=== PATIENT | male | born 1940 | race Caucasian/White ===

== ENCOUNTER 2017-06-11 11:06 | Emergency (ER) | payer MEDICARE, OTHER ==
[2017-06-11 11:49] VITALS: BP 85/32
--- NOTE | 2017-06-11 11:57 | EDM.PDOC ---
ED HPI GENERAL MEDICAL PROBLEM - General Chief Complaint: Abdominal Pain Stated Complaint: ABDOMINAL PAIN Time Seen by Provider: 06/11/17 11:50 Source of Information: Reports: Patient, RN History Limitations: Reports: No Limitations - History of Present Illness INITIAL COMMENTS - FREE TEXT/NARRATIVE: 76 yr male presents with abdominal pain/ LLQ and states no BM for 3 days. States hx of hernia too. States hx of emphysema and takes neb and inhalers. 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: Other (see below) Left Abdomen Pain Score (Numeric/FACES): 8 - Related Data Allergies Allergy/AdvReac Type Severity Reaction Status Date / Time No Known Allergies Allergy Verified 06/01/16 17:56 Home Meds: Home Meds Albuterol/Ipratropium [DuoNeb 3.0-0.5 MG/3 ML] 3 ml .XX Q4H PRN 06/01/16 [ History] Desvenlafaxine [Pristiq] 50 mg PO BID 06/01/16 [History] Fluticasone/Salmeterol [Advair Diskus 500-50] 1 puff INH BID 06/01/16 [History] Levothyroxine Sodium [Synthroid] 150 mcg PO DAILY 06/01/16 [History] Lisinopril 10 mg PO DAILY 06/01/16 [History] Simvastatin [Zocor] 20 mg PO BEDTIME 06/01/16 [History] Tamsulosin HCl [Flomax] 0.4 mg PO DAILY 06/01/16 [History] Tiotropium [Spiriva] 1 puff INH DAILY 06/01/16 [History] Polyethylene Glycol 3350 [MiraLAX] 17 gm PO DAILY #30 packet 06/11/17 [Rx] Past Medical History HEENT History: Reports: Impaired Vision Cardiovascular History: Reports: High Cholesterol, Hypertension Respiratory History: Reports: COPD Psychiatric History: Reports: Depression Endocrine/Metabolic History: Reports: Hypothyroidism - Infectious Disease History Infectious Disease History: Reports: MRSA - Past Surgical History HEENT Surgical History: Reports: None Cardiovascular Surgical History: Reports: None Respiratory Surgical History: Reports: None Social & Family History - Tobacco Use Smoking Status *Q: Current Every Day Smoker Years of Tobacco use: 55 Packs/Tins Daily: 1 Used Tobacco, but Quit: No Second Hand Smoke Exposure: No - Caffeine Use Caffeine Use: Reports: Coffee - Alcohol Use Days Per Week of Alcohol Use: 7 Number of Drinks Per Day: 5 Total Drinks Per Week: 35 - Recreational Drug Use Recreational Drug Use: No ED ROS GENERAL - Review of Systems Review Of Systems: See Below Constitutional: Reports: No Symptoms HEENT: Reports: No Symptoms Cardiovascular: Reports: No Symptoms GI/Abdominal: Reports: Abdominal Pain, Constipation. Denies: Diarrhea Musculoskeletal: Reports: No Symptoms Skin: Reports: No Symptoms Neurological: Reports: No Symptoms Psychiatric: Reports: No Symptoms ED EXAM, GI/ABD - Physical Exam Exam: See Below Exam Limited By: No Limitations General Appearance: Alert, No Apparent Distress Ears: Hearing Grossly Normal Nose: Normal Inspection Throat/Mouth: Normal Voice, No Airway Compromise Head: Atraumatic, Normocephalic Neck: Normal Inspection, Supple, Non-Tender Respiratory/Chest: No Respiratory Distress, Decreased Breath Sounds, Wheezing Cardiovascular: Regular Rate, Rhythm, No Edema GI/Abdominal Exam: Normal Bowel Sounds, Soft, No Distention, Tender. No: Guarding, Rigid Extremities: Normal Range of Motion, Non-Tender Neurological: Alert, Oriented, Normal Cognition Psychiatric: Normal Affect, Normal Mood Skin Exam: Warm, Dry, Normal Color Lymphatic: No Adenopathy Course - Vital Signs Last Recorded V/S: Last Vital Signs Temp 97.8 F 06/11/17 11:47 Pulse 58 L 06/11/17 11:47 Resp 18 06/11/17 11:47 BP 85/32 L 06/11/17 11:47 Pulse Ox 88 L 06/11/17 11:47 - Orders/Labs/Meds Labs: Laboratory Tests 06/11/17 06/11/17 Range/Units 12:14 12:14 WBC 7.8 (4.0-11.0) K/uL RBC 4.84 (4.50-6.50) M/uL Hgb 15.6 (13.0-18.0) g/dL Hct 46.5 (40.0-54.0) % MCV 96 (76-96) fL MCH 32.2 H (27.0-32.0) pg MCHC 33.5 (31.0-35.0) g/dL RDW 13.8 (11.0-16.0) % Plt Count 156 D (150-400) K/uL MPV 10.5 H (6.0-10.0) fL Neut % (Auto) 74.5 H (45.0-70.0) % Lymph % (Auto) 13.1 L (20.0-40.0) % [place] % (Auto) 8.7 (3.0-10.0) % Eos % (Auto) 3.3 (1.0-5.0) % Baso % (Auto) 0.4 (0.0-0.5) % Neut # (Auto) 5.82 (2.00-7.50) K/uL Lymph # (Auto) 1.02 L (1.50-4.00) K/uL [place] # (Auto) 0.68 (0.20-0.80) K/uL Eos # (Auto) 0.26 (0.04-0.40) K/uL Baso # (Auto) 0.03 (0.02-0.10) K/uL Sodium 140 (136-145) mmol/L Potassium 5.4 H (3.5-5.1) mmol/L Chloride 104 (98-107) mmol/L Carbon Dioxide 31.0 (21.0-32.0) mmol/L Anion Gap 10.4 (5.0-15.0) mmol/L BUN 18 D (8-26) mg/dL Creatinine 1.09 (0.70-1.30) mg/dL Est Cr Clr Drug Dosing TNP Estimated GFR (MDRD) > 60 (>60) MLS/MIN BUN/Creatinine Ratio 16.5 (6-25) Glucose 98 (74-100) mg/dL Calcium 9.3 (8.5-10.1) mg/dL Total Bilirubin 0.5 (0.0-1.0) mg/dL AST 13 L (15-37) U/L ALT 17 (12-78) U/L Alkaline Phosphatase 83 (46-116) U/L Total Protein 7.3 (6.4-8.2) g/dL Albumin 3.9 (3.4-5.0) g/dL Globulin 3.4 (2.2-4.2) g/dL Albumin/Globulin Ratio 1.1 (0.8-2.0) Meds: Medications Discontinued Medications Generic Name Dose Route Start Last Admin Trade Name Yahaira PRN Reason Stop Dose Admin Sodium Biphosphate/Sodium Phosphate 133 ml 06/11/17 13:31 Fleet Enema RECTAL 06/11/17 13:32 ONETIME ONE - Re-Assessments/Exams Free Text/Narrative Re-Assessment/Exam: 06/11/17 18:41 LE Reviewed lab results and X-ray results w pt. Large amount of feces to rectum. Will give enema to assist with constipation. Pt states no one at home to help him with an enema. Will start Rx for Miralax daily until normal soft regular BM daily. Pt had large results of BM after tap water enema and stated relief of abdomen pain. Discharge to home with daily Miralax. Departure - Departure Time of Disposition: 14:00 Disposition: Home, Self-Care 01 Condition: Good Clinical Impression: Abdominal pain, Constipation - Discharge Information Prescriptions: Polyethylene Glycol 3350 [MiraLAX] 17 gm PO DAILY #30 packet Referrals: PCP,None [Primary Care Provider] - Forms: ED Department Discharge, ED Return to Work/School Form
[2017-06-11] MEDS ORDERED: Sodium Phosphate,Monobasic/Sodium Phosphate,Dibasic Enema 133 ML Bottle RECTAL ONE (13:31)
--- NOTE | 2017-06-11 18:23 | CR ---
DATE OF SERVICE: 06/11/17 CLINICAL DATA: LLQ abd pain SUPINE AND UPRIGHT ABDOMEN: There is a large amount of stool noted within the descending and sigmoid colon and rectum. No definite evidence for obstruction or ileus. No free air. There is degenerative disc disease throughout the lumbar spine. [id number] [facility]
== END 2017-06-11 14:00 | disposition home or self-care (01) ==
LOC: LB.ED 11:06
DX: K59.00 Constipation, unspecified (principal); I10 Essential (primary) hypertension; E78.00 Pure hypercholesterolemia, unspecified; J44.9 Chronic obstructive pulmonary disease, unspecified; E03.9 Hypothyroidism, unspecified; F17.210 Nicotine dependence, cigarettes, uncomplicated
CPT/HCPCS: 36415; 74019; 80053; 85025; 99283; 99284; A0425; A0429; A9270

== ENCOUNTER 2017-06-21 09:56 | Inpatient (IN) | payer MEDICARE, OTHER ==
[2017-06-21] MEDS ORDERED: Sodium Chloride 0.9% 10 ML Syringe FLUSH PRN (10:42)
[2017-06-21] MEDS ORDERED: methylPREDNISolone Sodium Succinate 125 MG/2 ML SDV IV ONE (11:27)
--- NOTE | 2017-06-21 11:33 | EDM.PDOC ---
ED HPI GENERAL MEDICAL PROBLEM - General Chief Complaint: Respiratory Problem Stated Complaint: SOB Time Seen by Provider: 06/21/17 10:00 Source of Information: Reports: Patient History Limitations: Reports: No Limitations - History of Present Illness INITIAL COMMENTS - FREE TEXT/NARRATIVE: This is a 76yo M here for chest congestion and shortness of breath. Patient denies any fever or chills. He has some difficulty with breathing. No other concerns or issues. Patient states he has some lightheadedness recently. Onset: Gradual Duration: Week(s):, Getting Worse Location: Reports: Chest Severity: Moderate Improves with: Reports: None Worsens with: Reports: Movement Associated Symptoms: Reports: Shortness of Breath - Related Data Allergies Allergy/AdvReac Type Severity Reaction Status Date / Time No Known Allergies Allergy Verified 06/21/17 10:44 Home Meds: Home Meds Albuterol/Ipratropium [DuoNeb 3.0-0.5 MG/3 ML] 3 ml INH Q4H PRN 06/01/16 [ History] Desvenlafaxine [Pristiq] 100 mg PO QPM 06/01/16 [History] Levothyroxine Sodium [Synthroid] 150 mcg PO ACBREAKFAST 06/01/16 [History] Simvastatin [Zocor] 20 mg PO BEDTIME 06/01/16 [History] Tamsulosin HCl [Flomax] 0.4 mg PO QPM 06/01/16 [History] Albuterol [Proventil Neb Soln] 1 ampule INH Q4H PRN 06/21/17 [History] Aspirin [Halfprin] 81 mg PO DAILY 06/21/17 [History] Gabapentin [Neurontin] 100 mg PO TID 06/21/17 [History] buPROPion [Wellbutrin SR] 100 mg PO BID 06/21/17 [History] Past Medical History HEENT History: Reports: Impaired Vision Cardiovascular History: Reports: High Cholesterol, Hypertension Respiratory History: Reports: COPD Genitourinary History: Reports: BPH Psychiatric History: Reports: Anxiety, Depression Endocrine/Metabolic History: Reports: Hypothyroidism - Infectious Disease History Infectious Disease History: Reports: Chicken Pox - Past Surgical History HEENT Surgical History: Reports: None Cardiovascular Surgical History: Reports: None Respiratory Surgical History: Reports: None GI Surgical History: Reports: Appendectomy, Hernia, Abdominal Male Surgical History: Reports: None Social & Family History - Tobacco Use Smoking Status *Q: Current Every Day Smoker Years of Tobacco use: 55 Packs/Tins Daily: 1 Used Tobacco, but Quit: No Second Hand Smoke Exposure: No - Caffeine Use Caffeine Use: Reports: Coffee - Alcohol Use Days Per Week of Alcohol Use: 7 Number of Drinks Per Day: 5 Total Drinks Per Week: 35 - Recreational Drug Use Recreational Drug Use: No ED ROS GENERAL - Review of Systems Review Of Systems: ROS reveals no pertinent complaints other than HPI. ED EXAM, GENERAL - Physical Exam Exam: See Below Exam Limited By: No Limitations Eye Exam: Bilateral Eye: EOMI, PERRL Ears: Normal External Exam Nose: Normal Inspection Throat/Mouth: Normal Inspection Head: Atraumatic, Normocephalic Neck: Normal Inspection Respiratory/Chest: Rhonchi, Wheezing Cardiovascular: Normal Peripheral Pulses Peripheral Pulses: 2+: Dorsalis Pedis (L), Dorsalis Pedis (R) GI/Abdominal: Normal Bowel Sounds Back Exam: Normal Inspection Extremities: Normal Inspection Neurological: Alert, Oriented, CN II-XII Intact Course - Vital Signs Last Recorded V/S: Last Vital Signs Temp 37.0 C 06/21/17 11:15 Pulse 72 06/21/17 16:00 Resp 18 06/21/17 16:00 BP 130/83 06/21/17 16:00 Pulse Ox 96 06/21/17 16:00 - Orders/Labs/Meds Orders: Medication Orders Albuterol (Proventil Neb Soln) 2.5 mg INH Q4H PRN PRN Reason: Shortness of Breath Albuterol/Ipratropium (Duoneb 3.0-0.5 Mg/3 Ml) 3 ml INH Q4H [facility] Last Admin: 06/21/17 16:12 Dose: Albuterol/Ipratropium (Duoneb 3.0-0.5 Mg/3 Ml) 3 ml NEB Q2H PRN PRN Reason: Shortness of Breath Aspirin (Halfprin) 81 mg PO DAILY [facility] Desvenlafaxine Succinate (Pristiq) 100 mg PO QPM [facility] Gabapentin (Neurontin) 200 mg PO TID [facility] Last Admin: 06/21/17 16:45 Dose: Azithromycin 500 mg/ Sodium (Chloride) 100 mls @ 100 mls/hr IV Q24H [facility] Stop: 06/24/17 11:31 Last Admin: 06/21/17 12:25 Dose: 100 mls/hr Ceftriaxone Sodium 1 gm/ (Sodium Chloride) 50 mls @ 200 mls/hr IV Q24H [place] Stop: 06/28/17 11:31 Last Admin: 06/21/17 12:08 Dose: 200 mls/hr Levothyroxine Sodium (Levothyroxine) 150 mcg PO ACBREAKFAST [place] Methylprednisolone Sodium Succinate (Solu-Medrol) 40 mg IV Q6H [place] Non-Formulary Medication (Bupropion [Wellbutrin Sr]) 100 mg PO BID [place] Simvastatin (Zocor) 20 mg PO BEDTIME [place] Sodium Chloride (Saline Flush) 10 ml FLUSH ASDIRECTED PRN PRN Reason: Keep Vein Open Tamsulosin HCl (Flomax) 0.4 mg PO QPM [place] Meds: Medications Generic Name Dose Route Start Last Admin Trade Name Freq PRN Reason Stop Dose Admin Albuterol 2.5 mg 06/21/17 13:13 Proventil Neb Soln INH Q4H PRN Shortness of Breath Albuterol/Ipratropium 3 ml 06/21/17 13:15 06/21/17 16:12 Duoneb 3.0-0.5 Mg/3 Ml INH Not Given Q4H [place] Albuterol/Ipratropium 3 ml 06/21/17 17:00 Duoneb 3.0-0.5 Mg/3 Ml NEB Q2H PRN Shortness of Breath Aspirin 81 mg 06/22/17 08:00 Halfprin PO DAILY [place] Desvenlafaxine Succinate 100 mg 06/21/17 20:00 Pristiq PO QPM [facility] Gabapentin 200 mg 06/21/17 14:00 06/21/17 16:45 Neurontin PO Not Given TID [place] Azithromycin 500 mg/ Sodium 100 mls @ 100 mls/hr 06/21/17 11:30 06/21/17 12: 25 Chloride IV 06/24/17 11:31 100 mls/hr Q24H [place] Administration Ceftriaxone Sodium 1 gm/ 50 mls @ 200 mls/hr 06/21/17 11:30 06/21/17 12:08 Sodium Chloride IV 06/28/17 11:31 200 mls/hr Q24H [place] Administration Levothyroxine Sodium 150 mcg 02/09/18 07:00 Levothyroxine PO ACBREAKFAST [facility] Methylprednisolone Sodium Succinate 40 mg 06/22/17 11:30 Solu-Medrol IV Q6H [place] Non-Formulary Medication 100 mg 06/21/17 20:00 Bupropion [Wellbutrin Sr] PO BID [place] Simvastatin 20 mg 06/21/17 20:00 Zocor PO BEDTIME [place] Sodium Chloride 10 ml 06/21/17 10:42 Saline Flush FLUSH ASDIRECTED PRN Keep Vein Open Tamsulosin HCl 0.4 mg 06/21/17 20:00 Flomax PO QPM [place] Discontinued Medications Generic Name Dose Route Start Last Admin Trade Name Freq PRN Reason Stop Dose Admin Albuterol/Ipratropium 3 ml 06/21/17 12:00 06/21/17 16:55 Duoneb 3.0-0.5 Mg/3 Ml NEB Not Given QID [place] Methylprednisolone Sodium Succinate 125 mg 06/21/17 11:27 06/21/17 11:47 Solu-Medrol IV 06/21/17 11:28 125 mg ONETIME ONE Administration Methylprednisolone Sodium Succinate Confirm 06/21/17 11:49 06/21/17 12:12 Solu-Medrol Administered 06/21/17 11:50 Not Given Dose 125 mg .ROUTE .STK-MED ONE Departure - Departure Time of Disposition: 11:00 Disposition: Admitted As Inpatient 68 Clinical Impression: COPD exacerbation - Discharge Information - Problem List & Annotations (1) COPD exacerbation SNOMED Code(s): 549814760 Code(s): J44.1 - CHRONIC OBSTRUCTIVE PULMONARY DISEASE W (ACUTE) EXACERBATION Status: Acute Priority: High Current Visit: Yes - Problem List Review Problem List Initiated/Reviewed/Updated: Yes - Assessment/Plan Plan: Patient oxygen saturation have dropped into the 80's. He has shortness of breath that does resolve with rest and increased oxygen via non-rebreather. Patient admitted for Solumedrol, and nebulizer management. Patient will be signed out for tomorrow and the weekend.
[2017-06-21] MEDS ORDERED: methylPREDNISolone Sodium Succinate 125 MG/2 ML SDV ONE (11:49)
[2017-06-21] MEDS: cefTRIAXone 1 GM in Sodium Chloride 0.9% 50 ML IV SCH (12:08)
[2017-06-21] MEDS: Albuterol/Ipratropium 3.0-0.5 MG/3 ML Neb Soln NEB SCH ×2 (12:48→16:55)
[2017-06-21] MEDS: Albuterol/Ipratropium 3.0-0.5 MG/3 ML Neb Soln INH SCH ×3 (16:12→21:11)
[2017-06-21] MEDS: Gabapentin 100 MG Cap PO SCH ×2 (16:45→19:42)
[2017-06-21] MEDS ORDERED: Albuterol/Ipratropium 3.0-0.5 MG/3 ML Neb Soln NEB PRN (17:00)
[2017-06-21] MEDS ORDERED: Fluticasone Propionate Nasal Spray 16 GM Bottle ONE (17:56)
[2017-06-21] MEDS: Fluticasone Propionate Nasal Spray 16 GM Bottle NASBOTH SCH (18:01)
[2017-06-21] MEDS: Non-Formulary Medication 1 Each (Bupropion [Wellbutrin Sr] 100 MG) PO SCH (19:42)
[2017-06-21] MEDS: Desvenlafaxine 50 MG Tab.ER PO SCH (19:42)
[2017-06-21] MEDS: Tamsulosin 0.4 MG Cap.ER PO SCH (19:43)
[2017-06-21] MEDS: Simvastatin 20 MG Tab PO SCH (19:43)
[2017-06-21] MEDS ORDERED: buPROPion 150 MG Tab.SR PO SCH (20:00)
[2017-06-22] MEDS: Albuterol/Ipratropium 3.0-0.5 MG/3 ML Neb Soln INH SCH ×8 (01:27→22:09)
[2017-06-22] MEDS ORDERED: Albuterol/Ipratropium 3.0-0.5 MG/3 ML Neb Soln ONE (02:47)
[2017-06-22] MEDS: Levothyroxine 150 MCG Tab PO SCH (06:47)
[2017-06-22] MEDS: Albuterol 0.083% 2.5 MG/3 ML Neb Soln INH PRN (06:47)
[2017-06-22] MEDS: Non-Formulary Medication 1 Each (Bupropion [Wellbutrin Sr] 100 MG) PO SCH ×2 (08:00→19:16)
[2017-06-22] MEDS: Fluticasone Propionate Nasal Spray 16 GM Bottle NASBOTH SCH (08:00)
[2017-06-22] MEDS: Aspirin 81 MG Tab.EC PO SCH (08:01)
[2017-06-22] MEDS: Gabapentin 100 MG Cap PO SCH ×3 (08:01→19:15)
--- NOTE | 2017-06-22 09:30 | CR ---
DATE OF SERVICE: 06/21/17 CLINICAL DATA: COPD exacerbation AP PORTABLE CHEST: Comparison is made to a prior exam dated 09/25/16. Multiple views were obtained. The right costophrenic angle is cut off on all of them. The heart size is normal. The pulmonary vasculature appears prominent. The lungs are mildly hyperexpanded. There is mild increased density in the left lung base adjacent to the left hemidiaphragm suggesting subsegmental atelectasis or infiltrate. Pneumonia should be considered. No other significant findings. No pneumothorax. No pleural effusions. [id number] MTDD
[2017-06-22] MEDS: methylPREDNISolone Sodium Succinate 40 MG/1 ML SDV IV SCH ×3 (10:26→17:14)
[2017-06-22] MEDS: Azithromycin 500 MG in Sodium Chloride 0.9% 250 ML IV SCH (10:26)
[2017-06-22] MEDS: cefTRIAXone 1 GM in Sodium Chloride 0.9% 50 ML IV SCH (11:50)
[2017-06-22] MEDS: Tamsulosin 0.4 MG Cap.ER PO SCH (19:16)
[2017-06-22] MEDS: Desvenlafaxine 50 MG Tab.ER PO SCH (19:16)
[2017-06-22] MEDS: Simvastatin 20 MG Tab PO SCH (19:16)
--- NOTE | 2017-06-22 21:09 | PN ---
DATE OF VISIT: 06/22/2017 HISTORY OF PRESENT ILLNESS: This is a 76-year-old male who is an inpatient with an exacerbation of COPD. He has been here for one day, and it was reported to me that he has been responding well since he was admitted. He is on IV antibiotics and IV Solu -Medrol. The patient is on oxygen as well. When entering the room today, he is sitting up in bed reading. He states that he feels better. He is wondering when he can go home. He is not having any pain, and states that at rest, he has no problems with shortness of breath. PHYSICAL EXAMINATION: VITAL SIGNS: Reviewed. Blood pressure 100/60, O2 sats are at 92%. LUNGS: On exam reveals rhonchi and mild wheezes throughout the lung sanchez. CARDIAC: Heart sounds distinct without murmurs. SKIN: Warm and dry. TREATMENT PLAN: We will continue the patient on IV Solu-Medrol and his IV antibiotics. We will see how he improves over the course of the next day. If things continue to improve, we will try weaning him off the IV medications and switching to oral medications. Activity should be as tolerated with assistance. CRS/MODL /[id number] SABRINA
[2017-06-23] MEDS: methylPREDNISolone Sodium Succinate 40 MG/1 ML SDV IV SCH ×2 (00:45→08:51)
[2017-06-23] MEDS: Albuterol/Ipratropium 3.0-0.5 MG/3 ML Neb Soln INH SCH ×6 (01:35→21:35)
[2017-06-23] MEDS: Albuterol 0.083% 2.5 MG/3 ML Neb Soln INH PRN (02:15)
[2017-06-23] MEDS: Gabapentin 100 MG Cap PO SCH ×3 (08:41→19:37)
[2017-06-23] MEDS: Non-Formulary Medication 1 Each (Bupropion [Wellbutrin Sr] 100 MG) PO SCH ×2 (08:41→19:37)
[2017-06-23] MEDS: Levothyroxine 150 MCG Tab PO SCH (08:42)
[2017-06-23] MEDS: Fluticasone Propionate Nasal Spray 16 GM Bottle NASBOTH SCH (08:43)
[2017-06-23] MEDS: Aspirin 81 MG Tab.EC PO SCH (08:51)
[2017-06-23] MEDS: Azithromycin 500 MG in Sodium Chloride 0.9% 250 ML IV SCH (09:51)
[2017-06-23] MEDS: cefTRIAXone 1 GM in Sodium Chloride 0.9% 50 ML IV SCH (11:28)
--- NOTE | 2017-06-23 11:46 | PN ---
DATE OF VISIT: 06/23/2017 This is a 76-year-old male admitted a couple of days ago for COPD. The patient has been on Solu-Medrol 40 mg IV q.6 hours. He takes DuoNeb treatments q.i.d. He is on both Zithromax and Rocephin IV. The patient feels that his condition has improved some, but he has not improved much since yesterday. He states he felt much better after he was in the emergency room with the treatment they gave him there. He does not seem like he is continuing to improve. He is not having any problems with shortness of breath, and the patient was able to dress himself this morning and as well as putting his own socks on, which he has not been able to do recently. He is concerned about possibly getting constipated. He is not having any abdominal pain, but he has not had a bowel movement in a couple of days. Intake has been good. He is on low-flow oxygen. Vital signs have been good as well per nursing staff report. OBJECTIVE: GENERAL APPEARANCE: The patient is awake and alert. No obvious distress. LUNGS: Reveals ongoing rhonchi and wheezes scattered throughout the lung sanchez. Deep breathing does induce a coarse cough. CARDIAC: Heart sounds distinct without murmurs. ABDOMEN: Soft, nontender. Bowel sounds are present, but hypoactive. SKIN: Warm and dry. TREATMENT PLAN: We will increase the patient's Solu-Medrol to 60 mg q.i.d. for one day and see if this makes a difference. I will put him on a laxative as well per protocol. I advised the patient to move around the room with nursing assistance as tolerated and we will see how the patient is doing tomorrow. CRS/MODL /[id number] SABRINA
[2017-06-23] MEDS: methylPREDNISolone Sodium Succinate 125 MG/2 ML SDV IVPUSH SCH ×2 (15:40→20:15)
[2017-06-23] MEDS ORDERED: Docusate Sodium 100 MG Cap PO PRN (17:56)
[2017-06-23] MEDS: Tamsulosin 0.4 MG Cap.ER PO SCH (19:37)
[2017-06-23] MEDS: Simvastatin 20 MG Tab PO SCH (19:37)
[2017-06-23] MEDS: Desvenlafaxine 50 MG Tab.ER PO SCH (19:37)
[2017-06-24] MEDS: Albuterol/Ipratropium 3.0-0.5 MG/3 ML Neb Soln INH SCH ×3 (05:13→09:29)
[2017-06-24] MEDS: methylPREDNISolone Sodium Succinate 125 MG/2 ML SDV IVPUSH SCH ×2 (05:13→09:28)
[2017-06-24] MEDS: Gabapentin 100 MG Cap PO SCH (07:57)
[2017-06-24] MEDS: Levothyroxine 150 MCG Tab PO SCH (07:58)
[2017-06-24] MEDS: Aspirin 81 MG Tab.EC PO SCH (08:00)
[2017-06-24] MEDS: Fluticasone Propionate Nasal Spray 16 GM Bottle NASBOTH SCH (08:00)
[2017-06-24] MEDS: Non-Formulary Medication 1 Each (Bupropion [Wellbutrin Sr] 100 MG) PO SCH (08:06)
[2017-06-24] MEDS: Azithromycin 500 MG in Sodium Chloride 0.9% 250 ML IV SCH (09:29)
[2017-06-24] MEDS: cefTRIAXone 1 GM in Sodium Chloride 0.9% 50 ML IV SCH (11:09)
[2017-06-24 13:51] VITALS: BP 132/81
--- NOTE | 2017-06-25 03:27 | DISCH ---
HISTORY OF PRESENT ILLNESS: This 76-year-old male is here for COPD. The patient has been on IV antibiotics. He has been on nebulizers using a DuoNeb q.i.d., and he has been getting Solu-Medrol. We did increase his Solu-Medrol from 40 mg q.i.d. to 60 mg q.i.d. yesterday. The patient states he feels like he is improving. He was able to go to the bathroom with oxygen without any loss of O2 saturation. I had nurses walk him 200 feet today without oxygen and his sats dropped to 85%. He did not feel short of breath and as soon as he sat down and put the O2 on, it came back up to 98%. The patient has been eating well and states that he feels pretty good today. OBJECTIVE: GENERAL APPEARANCE: The patient is awake and alert. He is resting comfortably in bed, reading a book. VITAL SIGNS: Reviewed. Blood pressure 132/81, he is afebrile. Pulse is 73. LUNGS: On physical exam, lungs today reveal mild wheezes throughout. I do not hear any rales or rhonchi today. Deep breathing does not cause coughing or shortness of breath. CARDIAC: Heart sounds distinct. SKIN: Warm and dry. ASSESSMENT AND PLAN: I feel the patient can be discharged. I will put him on Spiriva which he can take once a day. He tells me he has been on this before. I will put him on an oral prednisone taper, and I will also start him on Augmentin for one week. The patient is to go home, use oxygen as needed, and get plenty of rest. I do want the patient to follow up with his primary care provider or someone in the clinic sometime later on this coming week. JG/MODL /[id number]
== END 2017-06-24 14:20 | disposition home or self-care (01) | DRG 192 ==
LOC: LB.ED 09:56 → LB.MS 10:40
PROVIDERS: ADMIT Family Medicine; ATTEND Family Medicine
DX: J44.1 Chronic obstructive pulmonary disease with (acute) exacerbation (principal); I10 Essential (primary) hypertension; F17.210 Nicotine dependence, cigarettes, uncomplicated; E03.9 Hypothyroidism, unspecified; R06.02 Shortness of breath; F32.9 Major depressive disorder, single episode, unspecified; F41.9 Anxiety disorder, unspecified; N40.0 Benign prostatic hyperplasia without lower urinary tract symptoms; E78.00 Pure hypercholesterolemia, unspecified; H54.7 Unspecified visual loss; Z79.82 Long term (current) use of aspirin
CPT/HCPCS: 36415; 71045; 80048; 80053; 82803; 85025; 99285-25; A0425; A0429; A9270-GY; J0456; J0696; J2920; J2930; J7030; J7050; J7620

== ENCOUNTER 2017-07-14 11:30 | Emergency (ER) | payer MEDICARE, OTHER ==
[2017-07-14 11:58] VITALS: BP 165/93
[2017-07-14] MEDS ORDERED: Budesonide 0.5 MG/2 ML Neb Susp NEB ONE (11:58)
[2017-07-14] MEDS ORDERED: methylPREDNISolone Sodium Succinate 125 MG/2 ML SDV IVPUSH ONE (11:59)
[2017-07-14] MEDS: Albuterol/Ipratropium 3.0-0.5 MG/3 ML Neb Soln NEB STA ×2 (12:00→13:01)
[2017-07-14] MEDS ORDERED: methylPREDNISolone Sodium Succinate 125 MG/2 ML SDV ONE (12:25)
[2017-07-14] MEDS ORDERED: Albuterol/Ipratropium 3.0-0.5 MG/3 ML Neb Soln ONE ×2 (13:05→14:50)
[2017-07-14] MEDS ORDERED: predniSONE 10 MG Tab ONE (15:00)
--- NOTE | 2017-07-14 20:55 | ER ---
HISTORY OF PRESENT ILLNESS: A 76-year-old male here with complaints of a flare up of his COPD. The patient has had problems for the last 2 or 3 days. He was in the hospital a couple weeks ago. He was sent home with medications and included a prednisone taper. He tells me that when he was on this medicine he did pretty good. Within 2 days of going off it, he started having symptoms again. 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 He states that he was not able to get in and get them. He also did not follow up with his primary care provider as previously directed. The patient tells me that it is very hard to breathe. He has been taking albuterol neb treatments frequently the last 2 days, but they do not seem to help very much. OBJECTIVE: GENERAL APPEARANCE: The patient is awake and alert. He has audible wheezing, mild shortness of breath. VITAL SIGNS: Reviewed. Blood pressure 165/93, O2 sats started out 85%, pulse is 102. He is afebrile. He was given 2 L of O2 and his sats climbed into the mid 90s. LUNG: He has significant wheezing, inspiratory and expiratory with significantly reduced air exchange throughout the lung sanchez. SKIN: Warm and dry. HEENT: Oral mucous membranes moist. Tonsils not enlarged or injected. Pharynx not inflamed. ABDOMEN: Soft and nontender. Bowel sounds are present. Initial treatment DuoNeb was given, followed by a Pulmicort. Nebulizer treatment followed by a second DuoNeb treatment. An IV was started. Solu-Medrol 125 mg was given IV. The patient responded significantly well to this and states he feels much better. Labs today, CBC is unremarkable. D-dimer is at 453, just slightly elevated. BNP is normal. Lactic acid is elevated at 2.91. Comprehensive metabolic panel was unremarkable. DIAGNOSIS: Chronic obstructive pulmonary disease. TREATMENT PLAN: The patient wants to go home. He agrees to take whatever medications I would give him and he agrees to follow up with Dr. Starks early next week in the clinic. Since the patient has responded this well. I feel this is reasonable. He is to continue on DuoNeb treatments per nebulizer every 6 hours, and we will get put him on p.o. prednisone 30 mg b.i.d. for 2 days, followed by 20 mg b.i.d. for 5 days. The patient is to definitely follow up next week in the clinic as soon as he can with Dr. Starks. JG/MODL /[id number]
--- NOTE | 2017-07-15 12:22 | CR ---
DATE OF SERVICE: 07/14/17 CLINICAL DATA: SOB - COPD. AP CHEST: Comparison is made to a prior exam dated 07/01/2017. The heart size is normal. The lungs are mildly hyperexpanded. There are mild interstitial changes throughout both lungs. There is a persistent subtle density in the left lung base, adjacent to the left hemidiaphragm, which may be focal infiltrate or atelectasis. The exam is otherwise unchanged from the prior. [id number] [facility]
== END 2017-07-14 15:10 | disposition home or self-care (01) ==
LOC: LB.ED 11:52
DX: J44.9 Chronic obstructive pulmonary disease, unspecified (principal)
CPT/HCPCS: 36415; 71045; 80053; 83605; 83880; 85025; 85379; 96374; 99285; A9270; J2930; J7620; J7626

== ENCOUNTER 2017-10-03 09:55 | Emergency (ER) | payer MEDICARE, OTHER ==
[2017-10-03] MEDS: Albuterol/Ipratropium 3.0-0.5 MG/3 ML Neb Soln NEB ONE (10:15)
[2017-10-03] MEDS: methylPREDNISolone Sodium Succinate 125 MG/2 ML SDV IVPUSH ONE (10:19)
[2017-10-03] MEDS: Budesonide 0.5 MG/2 ML Neb Susp NEB ONE (10:27)
[2017-10-03 10:44] VITALS: BP 125/83
[2017-10-03] MEDS: Budesonide 0.5 MG/2 ML Neb Susp ONE (10:45)
[2017-10-03] MEDS: methylPREDNISolone Sodium Succinate 125 MG/2 ML SDV ONE (10:45)
--- NOTE | 2017-10-03 17:11 | CR ---
DATE OF SERVICE: 10/03/17 CLINICAL DATA: SOB. AP PORTABLE CHEST: Comparison is made to a prior exam dated 07/14/17. The heart size is normal. Pulmonary vasculature does appear to be mildly prominent suggesting the possibility of mild pulmonary venous congestion or fluid overload. There is a persistent rounded density in the left lung base adjacent to the left hemidiaphragm. This may be focal eventration of the left hemidiaphragm. I cannot exclude a mass. Mild interstitial changes in both lower lungs. The lungs are otherwise clear. There is slight blunting of both costophrenic angles suggesting small bilateral pleural effusions or pleural scar. [id number] MTDD
--- NOTE | 2017-10-03 19:07 | ER ---
DATE OF SERVICE: 10/03/2017 HISTORY OF PRESENT ILLNESS: This 76-year-old male here with complaints of shortness of breath, and wheezing that he has been fighting for the last few days, but it seemed like it got worse today. The patient has history of COPD and has had multiple flare- ups. He has been seen here in our facility about once a month since May. The patient does take DuoNeb at home. He takes these neb treatments 4 times a day, and he states that sometimes it seems like it works quite well, other times not so much. The patient denies any obvious fever or recent illness. OBJECTIVE: GENERAL APPEARANCE: The patient is awake and alert. He has mild respiratory distress and has audible wheezes. VITAL SIGNS: Reviewed. O2 saturations initially were at 80% when he arrived. Respirations 24, blood pressure 137/83. He is afebrile. Pulse is 65. O2 was put on the patient at 2 L, and his sats went right up to 97%. LUNG: Reveals significant wheezing throughout with minimal rales noted in both bases. CARDIAC : Heart sounds distinct. SKIN: Warm and dry. ORAL: Mucous membranes moist. INITIAL TREATMENT: DuoNeb was given to the patient followed by Pulmicort nebulizer treatment. The patient also was given Solu-Medrol 125 mg IV. LABORATORY AND IMAGING DATA: Includes a CBC and basic metabolic panel, they are unremarkable. His eosinophils are slightly elevated. Chest x-ray shows chronic COPD type changes. DIAGNOSIS: Chronic obstructive pulmonary disease exacerbation. ASSESSMENT: The patient feels much better after the initial treatments were done. He no longer has audible wheezes. I listened to his lungs again and he still has some end- expiratory wheezing, but much reduced from when he arrived. TREATMENT PLAN: The patient will be discharged home. I will put him on an oral prednisone taper over the next couple of weeks. The patient is to continue with his DuoNeb at home and use oxygen as needed. He does have an appointment coming up with Dr. Starks, his primary care provider in a week or so. This would be a good time for recheck. He is to come back to the ER of course sooner on a p.r.n. basis. CRS/MODL /[id number] MTDD
== END 2017-10-03 11:14 | disposition home or self-care (01) ==
LOC: LB.ED 09:55
DX: J44.1 Chronic obstructive pulmonary disease with (acute) exacerbation (principal)
CPT/HCPCS: 36415; 71045; 80048; 85025; 96374; 99284-25; J2930; J7620

== ENCOUNTER 2017-10-21 15:50 | Emergency (ER) | payer MEDICARE, OTHER ==
[2017-10-21 16:03] VITALS: BP 125/84
--- NOTE | 2017-10-21 17:03 | EDM.PDOC ---
ED HPI GENERAL MEDICAL PROBLEM - General Chief Complaint: General Stated Complaint: LEFT ANKLE swelling Time Seen by Provider: 10/21/17 16:00 Source of Information: Reports: Patient History Limitations: Reports: No Limitations - History of Present Illness INITIAL COMMENTS - FREE TEXT/NARRATIVE: According to patient he was sitting in the chair yesterday afternoon and he felt a pop in his left ankle and since then he has been having swelling around the left ankle. Today he has been having pain around the ankle and hurts to bear weight or walk. No other trauma or injury. Also he has noted some skin bruising around the ankle. No other complaints. Pt claims that he has been on prednisone for his emphysema for past 2 wks now. Onset Date: 10/20/17 Onset Time: 12:00 Location: Reports: Lower Extremity, Left Quality: Reports: Ache Severity: Mild Improves with: Reports: None Worsens with: Reports: None Associated Symptoms: Denies: Confusion, Chest Pain, Cough, Diaphoresis, Fever/ Chills, Headaches, Nausea/Vomiting, Rash, Seizure, Shortness of Breath, Syncope , Weakness left ankle Pain Score (Numeric/FACES): 7 - Related Data Allergies Allergy/AdvReac Type Severity Reaction Status Date / Time No Known Allergies Allergy Verified 10/03/17 10:31 Home Meds: Home Meds Albuterol/Ipratropium [DuoNeb 3.0-0.5 MG/3 ML] 3 ml INH Q4H PRN 06/01/16 [ History] Desvenlafaxine [Pristiq] 100 mg PO QPM 06/01/16 [History] Simvastatin [Zocor] 20 mg PO BEDTIME 06/01/16 [History] Tamsulosin HCl [Flomax] 0.4 mg PO QPM 06/01/16 [History] Aspirin [Halfprin] 81 mg PO DAILY 06/21/17 [History] buPROPion [Wellbutrin SR] 100 mg PO BID 06/21/17 [History] Levothyroxine 150 mcg PO ACBREAKFAST tablet 06/24/17 [Rx] Budesonide/Formoterol Fumarate [Symbicort 160-4.5 Mcg Inhaler] 2 puff IH BID [History] Past Medical History HEENT History: Reports: Impaired Vision Cardiovascular History: Reports: High Cholesterol, Hypertension Respiratory History: Reports: COPD Gastrointestinal History: Reports: None Genitourinary History: Reports: BPH Psychiatric History: Reports: Anxiety, Depression Endocrine/Metabolic History: Reports: Hypothyroidism - Infectious Disease History Infectious Disease History: Reports: Chicken Pox Other Infectious Disease History: Doesn't know - Past Surgical History HEENT Surgical History: Reports: None Cardiovascular Surgical History: Reports: None Respiratory Surgical History: Reports: None GI Surgical History: Reports: Appendectomy, Hernia, Abdominal Male Surgical History: Reports: None Social & Family History - Family History Family Medical History: Noncontributory - Caffeine Use Caffeine Use: Reports: Coffee ED ROS GENERAL - Review of Systems Review Of Systems: See Below Constitutional: Denies: Fever, Chills Respiratory: Reports: Shortness of Breath (severe COPD). Denies: Wheezing, Pleuritic Chest Pain, Cough, Sputum Cardiovascular: Denies: Chest Pain, Lightheadedness Endocrine: Denies: Fatigue GI/Abdominal: Denies: Abdominal Pain, Nausea, Vomiting : Denies: Dysuria, Flank Pain Musculoskeletal: Denies: Joint Pain, Joint Swelling Skin: Denies: Pruritis, Rash, Erythema ED EXAM, GENERAL - Physical Exam Exam: See Below Exam Limited By: No Limitations General Appearance: Alert, WD/WN, Mild Distress Eye Exam: Bilateral Eye: EOMI, PERRL Ears: Normal External Exam, Normal Canal, Hearing Grossly Normal, Normal TMs Ear Exam: Bilateral Ear: Auricle Normal, Canal Normal, TM normal Nose: Normal Inspection, Normal Mucosa, No Blood Throat/Mouth: Normal Inspection, Normal Lips, Normal Teeth, Normal Gums, Normal Oropharynx, Normal Voice, No Airway Compromise Head: Atraumatic, Normocephalic Neck: Normal Inspection, Supple, Non-Tender, Full Range of Motion Respiratory/Chest: No Respiratory Distress, Lungs Clear, Normal Breath Sounds, No Accessory Muscle Use, Chest Non-Tender Cardiovascular: Normal Peripheral Pulses, Regular Rate, Rhythm, No Edema, No Gallop, No JVD, No Murmur, No Rub Extremities: Other (Left lower extremity: there is swelling seen all around the left ankle also there is skin bruising over posterior aspect of the ankle. Pt has very limited dorsifelxion of the foot. Thereis partial defect and tender over the chilis tendon just proximal to calcaneus.) Course - Vital Signs Text/Narrative:: It does appear like patient has had partial rupture of Achilles tendon when he tried to get out of the chair yesterday. His ankle Xray appear normal other then soft tissue swelling. I have reassured patient. I am not sure if this is related to his use of oral prednisone I did applied a long leg splint. Advised non-weight bearing with crutches, but patient cannot use crutches due to proximal muscle weakness of his shoulder girdle. Advised to use walker for ambulation and minimal weight bearing. I have advised him to keep the leg elevated. Will try to contact [facility] in the morning and discuss patient and schedule appointment for further care.Pt might need MRI, but will wait until I contact Ortho clinic. Pt does understand and agree with the plan. Last Recorded V/S: Last Vital Signs Temp 97.2 F 10/21/17 15:51 Pulse 87 10/21/17 15:51 Resp 20 10/21/17 15:51 BP 125/84 10/21/17 15:51 Pulse Ox 96 10/21/17 15:51 - Orders/Labs/Meds Orders: Active Orders 24 hr Category Date Time Status Ankle 2V Lt [CR] Stat Exams 10/21/17 16:03 Taken Departure - Departure Time of Disposition: 17:30 Disposition: Home, Self-Care 01 Condition: Fair Clinical Impression: Achilles rupture, left - Discharge Information Instructions: Achilles Tendon Rupture Forms: ED Department Discharge Additional Instructions: Karla will call you tomorrow or Dr. Lima nurse will call you. If you need something or have any questions you can call [phone] (clinic). Do not put ice or heat on the injury. - Problem List & Annotations (1) Achilles rupture, left SNOMED Code(s): 34820679114841741 Code(s): S86.012A - STRAIN OF LEFT ACHILLES TENDON, INITIAL ENCOUNTER Status: Acute - Problem List Review Problem List Initiated/Reviewed/Updated: Yes - My Orders Last 24 Hours: My Active Orders 10/21/17 16:03 Ankle 2V Lt [CR] Stat - Assessment/Plan Last 24 Hours: My Active Orders 10/21/17 16:03 Ankle 2V Lt [CR] Stat Assessment:: Partial Achilles tendon rupture Plan: It does appear like patient has had partial rupture of Achilles tendon when he tried to get out of the chair yesterday. His ankle Xray appear normal other then soft tissue swelling. I have reassured patient. I am not sure if this is related to his use of oral prednisone I did applied a long leg splint. Advised non-weight bearing with crutches, but patient cannot use crutches due to proximal muscle weakness of his shoulder girdle. Advised to use walker for ambulation and minimal weight bearing. I have advised him to keep the leg elevated. Will try to contact [facility] in the morning and discuss patient and schedule appointment for further care.Pt might need MRI, but will wait until I contact Ortho clinic. Pt does understand and agree with the plan.
--- NOTE | 2017-10-22 07:34 | CR ---
DATE OF SERVICE: 10/21/17 CLINICAL DATA: pain and swelling LEFT ANKLE: No priors. There is soft tissue swelling over the medial and lateral malleoli. No acute fracture or dislocation. No lytic or blastic bone lesions. [id number] [facility]
== END 2017-10-21 17:00 | disposition home or self-care (01) ==
LOC: LB.ED 15:50
DX: S86.012A Strain of left Achilles tendon, initial encounter (principal); I10 Essential (primary) hypertension; E78.00 Pure hypercholesterolemia, unspecified; F32.9 Major depressive disorder, single episode, unspecified; E03.9 Hypothyroidism, unspecified; Z79.899 Other long term (current) drug therapy; X58.XXXA Exposure to other specified factors, initial encounter
CPT/HCPCS: 29505; 73600-LT; 99283

== ENCOUNTER 2019-06-30 08:56 | Observation (INO) | payer MEDICARE, MEDICAID ==
[2019-06-30] MEDS ORDERED: methylPREDNISolone Sodium Succinate 125 MG/2 ML SDV IVPUSH ONE (09:20)
[2019-06-30] MEDS ORDERED: Levofloxacin/Dextrose 5%-Water 500 MG in Premix Bag 1 BAG IV ONE (09:22)
[2019-06-30] MEDS ORDERED: methylPREDNISolone Sodium Succinate 125 MG/2 ML SDV ONE (09:50)
[2019-06-30] MEDS ORDERED: cefTRIAXone 1 GM Vial ONE (10:18)
[2019-06-30] MEDS: cefTRIAXone 1 GM in Sodium Chloride 0.9% 50 ML IV SCH (10:25)
[2019-06-30] MEDS: Albuterol/Ipratropium 3.0-0.5 MG/3 ML Neb Soln NEB PRN (10:32)
--- NOTE | 2019-06-30 10:35 | CR ---
DATE OF SERVICE: 06/30/2019 CLINICAL DATA: Shortness of breath AP and lateral chest: Comparison made to prior exam dated 02/22/2018. The heart size is normal. There is prominence of the proximal pulmonary arteries suggesting pulmonary hypertension. The lungs are hyperexpanded. 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 There are scattered reticular opacities throughout both lungs with fibrotic changes bilaterally. Mild progression from the prior study. No pneumothorax. No pleural effusions. MTDD
[2019-06-30] MEDS ORDERED: Albuterol/Ipratropium 3.0-0.5 MG/3 ML Neb Soln ONE (10:36)
[2019-06-30] MEDS ORDERED: Albuterol/Ipratropium 3.0-0.5 MG/3 ML Neb Soln INH PRN (11:34)
--- NOTE | 2019-06-30 12:57 | HP ---
REASON FOR EMERGENCY ROOM ADMISSION: Acute exacerbation of COPD. HISTORY: This 78-year-old man was brought in with increasing shortness of breath. He was brought in by ambulance and was known to have a history of severe COPD. Apparently, he has been experiencing increasing dyspnea throughout the day, particularly yesterday. It improved and when he went to bed, he felt fine. One nebulizer treatment at home seemed to help him a great deal. He went into bed and then was awakened in the middle of night with increasing shortness of breath. He finally reached a point where he called an ambulance to bring him into the emergency room. He denies any fever or myalgias. He has not had any GI symptoms. On arrival, he had some air hunger and appeared to be somewhat anxious. He denied any chest pain or urinary symptoms. He is on home O2 therapy as needed. He has 2 daughters, 1 of whom was lost on 01/22 in [facility] [place]. PAST MEDICAL HISTORY: 1. COPD, severe. 2. History of bilateral Achilles tendon rupture. 3. History of depression. 4. Hyperthyroidism. 5. History of vasovagal episode. MEDICATIONS: Reviewed. Please see EMR. They include the following; desvenlafaxine (Pristiq), Symbicort inhaler, levothyroxine, albuterol with ipratropium (DuoNeb p.r.n.), Flomax, and one baby aspirin per day. ALLERGIES: NONE TO MEDICATIONS. SOCIAL HISTORY: He does admit to smoking 3/4 of a pack of cigarettes per day. He is still actively smoking. He lives with his . REVIEW OF SYSTEMS: Pertinent positives and negatives as listed in the HPI. PHYSICAL EXAMINATION: GENERAL: He appears somewhat anxious and is using accessory muscles to certain extent. VITAL SIGNS: He is afebrile, heart rate is 95, blood pressure 117/70, respiratory rate is 22, O2 sats 99% on 2 L per nasal cannula. HEENT: Head is normocephalic. No conjunctivitis. Oropharynx is normal. No erythema or exudates are noted. NECK: Supple. There is some mild JVD noted. No adenopathy. CHEST: He has bilateral expiratory wheezes and rhonchi and somewhat decreased air exchange consistent with COPD. CARDIAC: Regular rate without murmur. ABDOMEN: Soft and nontender. No hepatosplenomegaly. He does have easily reducible bilateral inguinal hernias. EXTREMITIES: Normal pulses. No edema. Feet are pink and warm. No cyanosis is evident. SKIN: No rashes. NEUROLOGIC: He moves all 4 extremities equally well to command. LABORATORY DATA: His CBC is within normal limits. His CMP is also within normal limits. His electrolytes are normal. An influenza A and B nasal swab was negative. His chest x-ray shows bilateral fibrotic changes, but without any definite infiltrates or acute processes. IMPRESSION: Acute exacerbation of chronic obstructive pulmonary disease in an active smoker. PLAN: 1. He was given one dose of Solu-Medrol 125 mg IV (this has worked the best for him in the past). 2. We will continue him on steroids, and I will probably switch him over to an oral burst type therapy. 3. He was given 1 g of Rocephin IV and we will continue this. 4. DuoNeb therapy will be started on him. He will be given supplemental oxygen as needed. 5. The patient understands and agrees with this plan. All questions were answered. PRESTON
[2019-06-30] MEDS ORDERED: Acetaminophen 500 MG Tab ONE (13:24)
[2019-06-30] MEDS ORDERED: Acetaminophen 500 MG Tab PO PRN (13:49)
[2019-06-30] MEDS ORDERED: Tamsulosin 0.4 MG Cap.ER*PT OWN MED PO SCH (20:00)
[2019-06-30] MEDS ORDERED: Desvenlafaxine 50 MG Tab.ER PO SCH (20:00)
[2019-06-30] MEDS ORDERED: DESVENLAFAXINE 100 MG PO SCH ×2 (20:00)
[2019-06-30] MEDS ORDERED: Tamsulosin 0.4 MG Cap.ER PO SCH (20:00)
[2019-06-30] MEDS: Non-Formulary Medication 1 Each (Budesonide/Formoterol Fumarate [Symbicort 160-4.5 Mcg Inh IH SCH (20:22)
[2019-07-01] MEDS ORDERED: Albuterol 0.083% 2.5 MG/3 ML Neb Soln NEB STA (03:10)
[2019-07-01] MEDS ORDERED: methylPREDNISolone Sodium Succinate 125 MG/2 ML SDV ONE (03:14)
[2019-07-01] MEDS ORDERED: Levothyroxine 150 MCG Tab PO SCH (07:00)
[2019-07-01] MEDS ORDERED: LEVOTHYROXINE 150 MCG PO SCH (07:00)
[2019-07-01] MEDS ORDERED: Aspirin 81 MG Tab.EC PO SCH (08:00)
[2019-07-01] MEDS ORDERED: ASPIRIN 81 MG PO SCH (08:00)
[2019-07-01] MEDS ORDERED: Albuterol/Ipratropium 3.0-0.5 MG/3 ML Neb Soln ONE ×2 (08:22→14:14)
[2019-07-01] MEDS: Albuterol/Ipratropium 3.0-0.5 MG/3 ML Neb Soln NEB PRN (08:23)
[2019-07-01] MEDS: Non-Formulary Medication 1 Each (Budesonide/Formoterol Fumarate [Symbicort 160-4.5 Mcg Inh IH SCH (08:30)
[2019-07-01] MEDS: cefTRIAXone 1 GM in Sodium Chloride 0.9% 50 ML IV SCH (09:20)
--- NOTE | 2019-07-01 11:28 | PN ---
DATE OF VISIT: 07/01/2019 Mr. Aguillon is better this morning than he was yesterday. He received 1 dose of Solu- Medrol yesterday, 125 mg IV and a second dose this morning of 125 mg IV. In the middle of the night, his O2 saturations did dip down to 90, and his respiratory rate increased to 24. He seemed to have some increased problems with secretions and tachypnea. He was switched from DuoNebs to straight albuterol nebulizer treatment, and that seemed to help, and this morning, he feels much better. He is on Rocephin 1 g IV daily, and he received the second dose today. Sputum culture is still pending. PHYSICAL EXAMINATION: VITAL SIGNS: He is afebrile. Heart rate 90, blood pressure 117/79, and respiratory rate is 18. CHEST: Slightly improved, but he still has a lot of wheezing and rhonchi bilaterally. IMPRESSION: Acute exacerbation of chronic obstructive pulmonary disease, on day 2 of IV Solu-Medrol and Rocephin. PLAN: If he remains stable, we will go ahead and switch him over to oral prednisone and give him a short course of burst therapy. I will probably change him over to a Z-Messi beginning tomorrow and plan to discharge him depending on his clinical status. DOTTIE/RAMAN /[id number]
[2019-07-01] MEDS: Formoterol/Mometasone 200-5 MCG 8.8 GM Inhaler IH SCH (19:20)
[2019-07-01] MEDS ORDERED: Tamsulosin 0.4 MG Cap.ER*PT OWN MED PO SCH (20:00)
[2019-07-01] MEDS ORDERED: DESVENLAFAXINE 100 MG PO SCH (20:00)
[2019-07-02] MEDS ORDERED: LEVOTHYROXINE 150 MCG PO SCH (07:00)
[2019-07-02] MEDS: Formoterol/Mometasone 200-5 MCG 8.8 GM Inhaler IH SCH (07:41)
[2019-07-02 07:46] VITALS: BP 117/77; PULSE 59
[2019-07-02] MEDS ORDERED: ASPIRIN 81 MG PO SCH (08:00)
--- NOTE | 2019-07-02 11:13 | EDM.PDOC ---
ED HPI GENERAL MEDICAL PROBLEM - General Chief Complaint: Respiratory Problem Stated Complaint: COPD Time Seen by Provider: 06/30/19 11:00 Source of Information: Reports: Patient History Limitations: Reports: No Limitations - History of Present Illness INITIAL COMMENTS - FREE TEXT/NARRATIVE: Dipesh is at his baseline. He is requesting to go home. No new concerns. 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 - Related Data Allergies Allergy/AdvReac Type Severity Reaction Status Date / Time No Known Allergies Allergy Verified 03/13/18 11:38 Home Meds: Home Meds Desvenlafaxine [Pristiq] 100 mg PO QPM 06/01/16 [History] Tamsulosin HCl [Flomax] 0.4 mg PO QPM 06/01/16 [History] Aspirin [Halfprin] 81 mg PO DAILY 06/21/17 [History] Levothyroxine 150 mcg PO ACBREAKFAST tablet 06/24/17 [Rx] Budesonide/Formoterol Fumarate [Symbicort 160-4.5 Mcg Inhaler] 2 puff IH BID [History] Albuterol/Ipratropium [DuoNeb 3.0-0.5 MG/3 ML] 3 ml INH Q4H PRN #60 neb [Rx] Past Medical History HEENT History: Reports: Impaired Vision Other HEENT History: glasses only at computer Cardiovascular History: Reports: High Cholesterol, Hypertension Respiratory History: Reports: COPD Gastrointestinal History: Reports: None Genitourinary History: Reports: BPH Musculoskeletal History: Reports: Other (See Below) Other Musculoskeletal History: weakness in leg muscles Psychiatric History: Reports: Anxiety, Depression Endocrine/Metabolic History: Reports: Hypothyroidism - Infectious Disease History Infectious Disease History: Reports: Chicken Pox, Measles, Rubella Other Infectious Disease History: Doesn't know - Past Surgical History HEENT Surgical History: Reports: None Cardiovascular Surgical History: Reports: None Respiratory Surgical History: Reports: None GI Surgical History: Reports: Appendectomy, Hernia, Abdominal Male Surgical History: Reports: None Social & Family History - Family History Family Medical History: Noncontributory - Tobacco Use Smoking Status *Q: Current Every Day Smoker Years of Tobacco use: 60 Packs/Tins Daily: 1 Used Tobacco, but Quit: No Tobacco Use Comment: does not want to quit Second Hand Smoke Exposure: No - Caffeine Use Caffeine Use: Reports: Coffee - Recreational Drug Use Recreational Drug Use: No ED ROS GENERAL - Review of Systems Review Of Systems: See Below Constitutional: Reports: No Symptoms Respiratory: Reports: Cough Cardiovascular: Denies: Chest Pain GI/Abdominal: Denies: Nausea Neurological: Reports: No Symptoms ED EXAM, GENERAL - Physical Exam Exam: See Below Exam Limited By: No Limitations General Appearance: Alert, WD/WN, No Apparent Distress Ears: Normal External Exam, Hearing Grossly Normal Throat/Mouth: Normal Inspection Head: Atraumatic, Normocephalic Neck: Normal Inspection Respiratory/Chest: No Respiratory Distress, No Accessory Muscle Use, Wheezing ( slight expiratory wheezes with prolonged expiratory phase; ) Cardiovascular: Regular Rate, Rhythm, No Murmur GI/Abdominal: Normal Bowel Sounds, Soft Extremities: Normal Capillary Refill Neurological: Alert, Oriented, Normal Cognition, Normal Gait Psychiatric: Normal Affect, Normal Mood Skin Exam: Warm, Dry Course - Vital Signs Last Recorded V/S: Last Vital Signs Temp 97.3 F 07/02/19 07:46 Pulse 59 L 07/02/19 07:46 Resp 18 07/01/19 19:23 BP 117/77 07/02/19 07:46 Pulse Ox 99 07/02/19 07:46 - Orders/Labs/Meds Orders: Medication Orders Acetaminophen (Tylenol Extra Strength) 1,000 mg PO Q6H PRN PRN Reason: Pain Last Admin: 06/30/19 13:47 Dose: 1,000 mg Ceftriaxone Sodium 1 gm/ (Sodium Chloride) 50 mls @ 100 mls/hr IV Q24H [facility] Last Admin: 07/01/19 09:20 Dose: 100 mls/hr Admin: 06/30/19 10:25 Dose: 100 mls/hr Mometasone Furoate/Formoterol Fumar (Dulera 200-5 Mcg) 2 puff IH BID [facility] Last Admin: 07/02/19 07:41 Dose: 2 puff Admin: 07/01/19 19:20 Dose: 2 puff Albuterol/Ipratropium 3.0-0.5 Mg/3 Ml Neb Soln*Pt Own Med* 0 each INH Q4H PRN PRN Reason: WHEEZING OR DYSPNEA Last Admin: 07/02/19 02:27 Dose: 1 each Admin: 07/01/19 19:26 Dose: 1 each Admin: 07/01/19 14:16 Dose: 1 each Admin: 07/01/19 03:23 Dose: 1 each Admin: 06/30/19 22:10 Dose: 1 each Desvenlafaxine 100 Mg Tab.Er *Pt Own Med* 1 each PO QPM [place] Last Admin: 07/01/19 19:20 Dose: 1 each Tamsulosin 0.4 Mg (Cap.Er*Pt Own Med*) 1 each PO QPM [place] Last Admin: 07/01/19 19:20 Dose: 1 each Levothyroxine 150 (Mcg Tab*Pt Own Med*) 1 each PO ACBREAKFAST [place] Last Admin: 07/02/19 07:40 Dose: 1 each Aspirin 81 Mg Tab.Ec *Pt Own Med*Pt Own Med* 1 each PO DAILY [place] Last Admin: 07/02/19 07:41 Dose: 1 each Labs: Laboratory Tests 06/30/19 06/30/19 06/30/19 Range/Units 09:49 09:50 09:51 WBC 6.2 D (4.0-11.0) K/uL RBC 4.46 L (4.50-6.50) M/uL Hgb 14.4 (13.0-18.0) g/dL Hct 43.3 (40.0-54.0) % MCV 97 H (76-96) fL MCH 32.3 H (27.0-32.0) pg MCHC 33.3 (31.0-35.0) g/dL RDW 14.8 (11.0-16.0) % Plt Count 227 (150-400) K/uL MPV 10.7 H (6.0-10.0) fL Neut % (Auto) 63.6 (45.0-70.0) % Lymph % (Auto) 18.5 L (20.0-40.0) % [place] % (Auto) 8.4 (3.0-10.0) % Eos % (Auto) 8.5 H (1.0-5.0) % Baso % (Auto) 1.0 H (0.0-0.5) % Neut # (Auto) 3.96 (2.00-7.50) K/uL Lymph # (Auto) 1.15 L (1.50-4.00) K/uL [place] # (Auto) 0.52 (0.20-0.80) K/uL Eos # (Auto) 0.53 H (0.04-0.40) K/uL Baso # (Auto) 0.06 (0.02-0.10) K/uL Sodium 141 (136-145) mmol/L Potassium 4.5 (3.5-5.1) mmol/L Chloride 104 (98-107) mmol/L Carbon Dioxide 27.5 (21.0-32.0) mmol/L Anion Gap 14.0 (5.0-15.0) mmol/L BUN 13 D (8-26) mg/dL Creatinine 0.76 (0.70-1.30) mg/dL Est Cr Clr Drug Dosing TNP Estimated GFR (MDRD) > 60 (>60) MLS/MIN BUN/Creatinine Ratio 17.1 (6-25) Glucose 109 H (74-100) mg/dL Calcium 8.8 (8.5-10.1) mg/dL Total Bilirubin 0.4 D (0.0-1.0) mg/dL AST 15 (15-37) U/L ALT 20 (12-78) U/L Alkaline Phosphatase 100 (46-116) U/L Total Protein 6.8 (6.4-8.2) g/dL Albumin 3.6 (3.4-5.0) g/dL Globulin 3.2 (2.2-4.2) g/dL Albumin/Globulin Ratio 1.1 (0.8-2.0) Urine Color Yellow Urine Appearance Clear (CLEAR) Urine pH 6.0 (5.0-8.0) Ur Specific [place] 1.020 (1.003-1.030) Urine Protein Negative (NEGATIVE) mg/dL Urine Glucose (UA) Negative (NEGATIVE) mg/dL Urine Ketones Trace H (NEGATIVE) mg/dL Urine Occult Blood Negative (NEGATIVE) Urine Nitrite Negative (NEGATIVE) Urine Bilirubin Negative (NEGATIVE) Urine Urobilinogen 0.2 (0.2-1.0) E.U./dL Ur Leukocyte Esterase Negative (NEGATIVE) Meds: Medications Generic Name Dose Route Start Last Admin Trade Name Freq PRN Reason Stop Dose Admin Acetaminophen 1,000 mg 06/30/19 13:49 06/30/19 13:47 Tylenol Extra Strength PO 1,000 mg Q6H PRN Administration Pain Ceftriaxone Sodium 1 gm/ 50 mls @ 100 mls/hr 06/30/19 10:00 07/01/19 09:20 Sodium Chloride IV 100 mls/hr Q24H [place] Administration Mometasone Furoate/Formoterol Fumar 2 puff 07/01/19 20:00 07/02/19 07:41 Dulera 200-5 Mcg IH 2 puff BID [place] Administration Albuterol/ 0 each 06/30/19 17:38 07/02/19 02:27 Ipratropium 3.0-0.5 INH 1 each Mg/3 Ml Neb Soln*Pt Q4H PRN Administration Own Med* WHEEZING OR DYSPNEA Desvenlafaxine 100 1 each 07/01/19 20:00 07/01/19 19:20 Mg Tab.Er *Pt Own PO 1 each Med* QPM [place] Administration Tamsulosin 0.4 Mg 1 each 07/01/19 20:00 07/01/19 19:20 Cap.Er*Pt Own Med* PO 1 each QPM [place] Administration Levothyroxine 150 1 each 07/02/19 07:00 07/02/19 07:40 Mcg Tab*Pt Own Med* PO 1 each ACBREAKFAST [place] Administration Aspirin 81 Mg Tab.Ec 1 each 07/02/19 08:00 07/02/19 07:41 *Pt Own Med*Pt Own PO 1 each Med* DAILY [place] Administration Discontinued Medications Generic Name Dose Route Start Last Admin Trade Name Freq PRN Reason Stop Dose Admin Acetaminophen Confirm 06/30/19 13:24 06/30/19 16:15 Tylenol Extra Strength Administered 06/30/19 13:25 Not Given Dose 1,000 mg .ROUTE .STK-MED ONE Albuterol 5 mg 07/01/19 03:10 07/01/19 03:39 Proventil Neb Soln NEB 07/01/19 03:11 5 mg ONETIME STA Administration Albuterol/Ipratropium 3 ml 06/30/19 09:52 07/01/19 08:23 Duoneb 3.0-0.5 Mg/3 Ml NEB 3 ml Q4H PRN Administration Dyspnea Albuterol/Ipratropium Confirm 06/30/19 10:36 06/30/19 10:43 Duoneb 3.0-0.5 Mg/3 Ml Administered 06/30/19 10:37 Not Given Dose 3 ml .ROUTE .STK-MED ONE Albuterol/Ipratropium 3 ml 06/30/19 11:34 06/30/19 14:54 Duoneb 3.0-0.5 Mg/3 Ml INH 3 ml Q4H PRN Administration Wheezing or dyspnea Albuterol/Ipratropium Confirm 07/01/19 08:22 07/01/19 09:21 Duoneb 3.0-0.5 Mg/3 Ml Administered 07/01/19 08:23 Not Given Dose 3 ml .ROUTE .STK-MED ONE Albuterol/Ipratropium Confirm 07/01/19 14:14 07/01/19 16:23 Duoneb 3.0-0.5 Mg/3 Ml Administered 07/01/19 14:15 Not Given Dose 3 ml .ROUTE .STK-MED ONE Aspirin 81 mg 07/01/19 08:00 Halfprin PO DAILY [facility] Ceftriaxone Sodium Confirm 06/30/19 10:18 06/30/19 10:40 Rocephin Administered 06/30/19 10:19 Not Given Dose 1 gm .ROUTE .STK-MED ONE Desvenlafaxine Succinate 100 mg 06/30/19 20:00 Pristiq PO QPM [facility] Levofloxacin/Dextrose 500 mg/ 100 mls @ 100 mls/hr 06/30/19 09:22 07/01/19 22 :57 Premix IV 06/30/19 10:21 Not Given ONETIME ONE Levothyroxine Sodium 150 mcg 07/01/19 07:00 Levothyroxine PO ACBREAKFAST [facility] Methylprednisolone Sodium Succinate 125 mg 06/30/19 09:20 06/30/19 09:55 Solu-Medrol IVPUSH 06/30/19 09:21 125 mg ONETIME ONE Administration Methylprednisolone Sodium Succinate Confirm 06/30/19 09:50 06/30/19 09:58 Solu-Medrol Administered 06/30/19 09:51 Not Given Dose 125 mg .ROUTE .STK-MED ONE Methylprednisolone Sodium Succinate Confirm 07/01/19 03:14 07/01/19 03:20 Solu-Medrol Administered 07/01/19 03:15 125 mg Dose Administration 125 mg .ROUTE .STK-MED ONE Non-Formulary Medication 2 puff 06/30/19 20:00 07/01/19 08:30 Budesonide/Formoterol Fumarate [Symbicort 160-4.5 Mcg Inhaler] IH Not Given BID [place] Aspirin 81 Mg Tab.Ec 0 each 07/01/19 08:00 07/01/19 08:28 *Pt Own Med*Pt Own PO 81 each Med* DAILY [place] Administration Desvenlafaxine 100 0 each 06/30/19 20:00 Mg Tab.Er *Pt Own PO Med* QPM [place] Desvenlafaxine 100 0 each 06/30/19 20:00 06/30/19 20:15 Mg Tab.Er *Pt Own PO 1 each Med* QPM [place] Administration Tamsulosin 0.4 Mg 0 each 06/30/19 20:00 06/30/19 20:15 Cap.Er*Pt Own Med* PO 1 each QPM [place] Administration Levothyroxine 150 0 each 07/01/19 07:00 07/01/19 08:26 Mcg Tab*Pt Own Med* PO 150 each ACBREAKFAST [place] Administration Tamsulosin HCl 0.4 mg 06/30/19 20:00 Flomax PO QPM [place] Departure - Departure Time of Disposition: 12:00 Disposition: Home, Self-Care 01 Clinical Impression: COPD (chronic obstructive pulmonary disease) - Discharge Information Sepsis Event Note - Evaluation Sepsis Screening Result: No Definite Risk
--- NOTE | 2019-07-02 12:08 | PCM.DCSUM1 ---
Discharge Summary - Hospital Course Free Text/Narrative:: Dipesh was admitted for COPD flare. He was covered with rocephin and IV solumedrol. Nebs were continued. He gradually returned to baseline and requested d/c. Otherwise unremarkable hospital course. - Discharge Data Discharge Date: 07/02/19 Discharge Disposition: Home, Self-Care 01 Condition: Good - Referral to Home Health Primary Care Physician: PCP None - Patient Instructions Diet: Regular Diet as Tolerated Activity: As Tolerated - Discharge Plan *PRESCRIPTION DRUG MONITORING PROGRAM REVIEWED*: Not Applicable *COPY OF PRESCRIPTION DRUG MONITORING REPORT IN PATIENT ARTEM: Not Applicable Home Medications: Home Meds Desvenlafaxine [Pristiq] 100 mg PO QPM 06/01/16 [History] Tamsulosin HCl [Flomax] 0.4 mg PO QPM 06/01/16 [History] Aspirin [Halfprin] 81 mg PO DAILY 06/21/17 [History] Levothyroxine 150 mcg PO ACBREAKFAST tablet 06/24/17 [Rx] Budesonide/Formoterol Fumarate [Symbicort 160-4.5 Mcg Inhaler] 2 puff IH BID [History] Albuterol/Ipratropium [DuoNeb 3.0-0.5 MG/3 ML] 3 ml INH Q4H PRN #60 neb [Rx] Patient Handouts: Steps to Quit Smoking, [id number], Nicotine chewing gum, Prednisone tablets, Chronic Obstructive Pulmonary Disease Exacerbation, Easy-to- Read - Discharge Summary/Plan Comment DC Time >30 min.: No - Patient Data Vitals - Most Recent: Last Vital Signs Temp 97.3 F 07/02/19 07:46 Pulse 59 L 07/02/19 07:46 Resp 18 07/01/19 19:23 BP 117/77 07/02/19 07:46 Pulse Ox 99 07/02/19 07:46 Weight - Most Recent: 166 lb I&O - Last 24 hours: Intake & Output 07/01/19 07/02/19 07/02/19 22:59 06:59 14:59 Intake Total 500 480 Balance 500 480 KISHOR Results - Last 24 hrs: Microbiology 06/30/19 13:43 MRSA Surveillance Culture - Final Nares, Unspecified NO MRSA ISOLATED Med Orders - Current: Current Medications Acetaminophen (Tylenol Extra Strength) 1,000 mg PO Q6H PRN PRN Reason: Pain Last Admin: 06/30/19 13:47 Dose: 1,000 mg Ceftriaxone Sodium 1 gm/ (Sodium Chloride) 50 mls @ 100 mls/hr IV Q24H [place] Last Admin: 07/01/19 09:20 Dose: 100 mls/hr Mometasone Furoate/Formoterol Fumar (Dulera 200-5 Mcg) 2 puff IH BID [place] Last Admin: 07/02/19 07:41 Dose: 2 puff Albuterol/Ipratropium 3.0-0.5 Mg/3 Ml Neb Soln*Pt Own Med* 0 each INH Q4H PRN PRN Reason: WHEEZING OR DYSPNEA Last Admin: 07/02/19 02:27 Dose: 1 each Desvenlafaxine 100 Mg Tab.Er *Pt Own Med* 1 each PO QPM [place] Last Admin: 07/01/19 19:20 Dose: 1 each Tamsulosin 0.4 Mg (Cap.Er*Pt Own Med*) 1 each PO QPM [place] Last Admin: 07/01/19 19:20 Dose: 1 each Levothyroxine 150 (Mcg Tab*Pt Own Med*) 1 each PO ACBREAKFAST [facility] Last Admin: 07/02/19 07:40 Dose: 1 each Aspirin 81 Mg Tab.Ec *Pt Own Med*Pt Own Med* 1 each PO DAILY [facility] Last Admin: 07/02/19 07:41 Dose: 1 each Discontinued Medications Acetaminophen (Tylenol Extra Strength) Confirm Administered Dose 1,000 mg .ROUTE .STK-MED ONE Stop: 06/30/19 13:25 Last Admin: 06/30/19 16:15 Dose: Not Given Albuterol (Proventil Neb Soln) 5 mg NEB ONETIME STA Stop: 07/01/19 03:11 Last Admin: 07/01/19 03:39 Dose: 5 mg Albuterol/Ipratropium (Duoneb 3.0-0.5 Mg/3 Ml) 3 ml NEB Q4H PRN PRN Reason: Dyspnea Last Admin: 07/01/19 08:23 Dose: 3 ml Albuterol/Ipratropium (Duoneb 3.0-0.5 Mg/3 Ml) Confirm Administered Dose 3 ml .ROUTE .STK-MED ONE Stop: 06/30/19 10:37 Last Admin: 06/30/19 10:43 Dose: Not Given Albuterol/Ipratropium (Duoneb 3.0-0.5 Mg/3 Ml) 3 ml INH Q4H PRN PRN Reason: Wheezing or dyspnea Last Admin: 06/30/19 14:54 Dose: 3 ml Albuterol/Ipratropium (Duoneb 3.0-0.5 Mg/3 Ml) Confirm Administered Dose 3 ml .ROUTE .STK-MED ONE Stop: 07/01/19 08:23 Last Admin: 07/01/19 09:21 Dose: Not Given Albuterol/Ipratropium (Duoneb 3.0-0.5 Mg/3 Ml) Confirm Administered Dose 3 ml .ROUTE .STK-MED ONE Stop: 07/01/19 14:15 Last Admin: 07/01/19 16:23 Dose: Not Given Aspirin (Halfprin) 81 mg PO DAILY [place] Ceftriaxone Sodium (Rocephin) Confirm Administered Dose 1 gm .ROUTE .STK-MED ONE Stop: 06/30/19 10:19 Last Admin: 06/30/19 10:40 Dose: Not Given Desvenlafaxine Succinate (Pristiq) 100 mg PO QPM [place] Levofloxacin/Dextrose 500 mg/ (Premix) 100 mls @ 100 mls/hr IV ONETIME ONE Stop: 06/30/19 10:21 Last Admin: 07/01/19 22:57 Dose: Not Given Levothyroxine Sodium (Levothyroxine) 150 mcg PO ACBREAKFAST [place] Methylprednisolone Sodium Succinate (Solu-Medrol) 125 mg IVPUSH ONETIME ONE Stop: 06/30/19 09:21 Last Admin: 06/30/19 09:55 Dose: 125 mg Methylprednisolone Sodium Succinate (Solu-Medrol) Confirm Administered Dose 125 mg .ROUTE .STK-MED ONE Stop: 06/30/19 09:51 Last Admin: 06/30/19 09:58 Dose: Not Given Methylprednisolone Sodium Succinate (Solu-Medrol) Confirm Administered Dose 125 mg .ROUTE .STK-MED ONE Stop: 07/01/19 03:15 Last Admin: 07/01/19 03:20 Dose: 125 mg Non-Formulary Medication (Budesonide/Formoterol Fumarate [Symbicort 160-4.5 Mcg Inhaler]) 2 puff IH BID [facility] Last Admin: 07/01/19 08:30 Dose: Not Given Aspirin 81 Mg Tab.Ec *Pt Own Med*Pt Own Med* 0 each PO DAILY [facility] Last Admin: 07/01/19 08:28 Dose: 81 each Desvenlafaxine 100 Mg Tab.Er *Pt Own Med* 0 each PO QPM [place] Desvenlafaxine 100 Mg Tab.Er *Pt Own Med* 0 each PO QPM [facility] Last Admin: 06/30/19 20:15 Dose: 1 each Tamsulosin 0.4 Mg (Cap.Er*Pt Own Med*) 0 each PO QPM [facility] Last Admin: 06/30/19 20:15 Dose: 1 each Levothyroxine 150 (Mcg Tab*Pt Own Med*) 0 each PO ACBREAKFAST [facility] Last Admin: 07/01/19 08:26 Dose: 150 each Tamsulosin HCl (Flomax) 0.4 mg PO QPM [facility]
--- NOTE | 2019-07-02 20:41 | DISCH ---
ADMISSION DIAGNOSIS: Acute exacerbation of chronic obstructive pulmonary disease. DISCHARGE DIAGNOSIS: Acute exacerbation of chronic obstructive pulmonary disease, improved. HISTORY OF PRESENT ILLNESS: This 78-year-old man was admitted on the above-mentioned date with symptoms consistent with an acute exacerbation of COPD. He had been experiencing increased dyspnea throughout the day prior to his admission through the emergency room here. On the morning, he was admitted. He developed increasing shortness of breath prior to his calling an ambulance. On evaluation in the emergency room, he had diffuse rhonchi and wheezes and moderate respiratory distress. His CBC was within normal limits as was his CMP. He had a nasal swab for influenza A and B and that was negative. His chest x-ray did not show any acute processes. He was admitted after given an initial dose of Solu-Medrol 125 mg IV and he was placed on DuoNeb. Because of the severity of his acute exacerbation, he was treated with 1 g of Rocephin IV daily throughout his hospitalization. HOSPITAL COURSE: His Solu-Medrol was repeated on the following day at the same dose, and he showed continued signs of improvement without any fever. His O2 sats remained very satisfactory. On the day of discharge, his chest had cleared significantly, although he still did have some baseline expiratory wheezes, which I suspect this is chronic situation. The patient will be discharged on prednisone 40 mg p.o. x4 days as a burst treatment to complete his steroid course. He will not receive any additional antibiotics as he has shown no signs of a pneumonia. He did relate to me that he is not sure that his nebulizer is working properly at home, and we are in the process of procuring a new one for him that functions properly. He will be maintained on the same medications that he has been taking including his Pristiq, his Symbicort inhaler, levothyroxine, baby aspirin, and Flomax. The patient does admit to continuation of smoking throughout even though his COPD has been this problematic, and I had a long talk with him about smoking cessation and made some suggestions as to how he can accomplish that. The patient will be seen in followup by his provider. DOTTIE/RAMAN /[id number]
== END 2019-07-02 11:45 | disposition home or self-care (01) ==
LOC: LB.ED 08:56 → LB.MS 11:30
PROVIDERS: ADMIT Surgery; ATTEND Surgery
DX: J44.1 Chronic obstructive pulmonary disease with (acute) exacerbation (principal); F32.9 Major depressive disorder, single episode, unspecified; E03.9 Hypothyroidism, unspecified; F17.210 Nicotine dependence, cigarettes, uncomplicated; Z79.899 Other long term (current) drug therapy; Z79.82 Long term (current) use of aspirin
CPT/HCPCS: 36415; 71046; 80053; 81003; 85025; 87070; 87205; 87804; 87804-59; 93005; A0425; A0429; A9270-GY; J0696; J2930; J7050; J7620-GY

== ENCOUNTER 2019-07-18 07:57 | Observation (INO) | payer MEDICARE, MEDICAID ==
[2019-07-18] MEDS ORDERED: Albuterol 0.083% 2.5 MG/3 ML Neb Soln NEB ONE (08:00)
[2019-07-18] MEDS: methylPREDNISolone Sodium Succinate 125 MG/2 ML SDV IVPUSH PRN ×2 (08:14→09:15)
[2019-07-18] MEDS ORDERED: Albuterol/Ipratropium 3.0-0.5 MG/3 ML Neb Soln NEB ONE (08:19)
[2019-07-18] MEDS ORDERED: LORazepam 2 MG/ML SDV IVPUSH ONE (08:21)
--- NOTE | 2019-07-18 08:32 | EDM.PDOC ---
ED HPI GENERAL MEDICAL PROBLEM - General Stated Complaint: SOB Time Seen by Provider: 07/18/19 08:10 Source of Information: Reports: Patient, Old Records History Limitations: Reports: No Limitations - History of Present Illness INITIAL COMMENTS - FREE TEXT/NARRATIVE: This is a 78yo M brought to the ER for shortness of breath. He states his symptoms started yesterday and did not improve. He has a history of COPD and has recently stopped smoking. He also notes increasing lower abdominal pain in the recent weeks that has persisted and worsened today. He denies any chest pain or fever. No recent sick contacts or travel. 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: Reports: Breathing Treatments, Oxygen - Related Data Allergies Allergy/AdvReac Type Severity Reaction Status Date / Time No Known Allergies Allergy Verified 07/18/19 08:28 Home Meds: Home Meds Desvenlafaxine [Pristiq] 100 mg PO QPM 06/01/16 [History] Tamsulosin HCl [Flomax] 0.4 mg PO QPM 06/01/16 [History] Aspirin [Halfprin] 81 mg PO DAILY 06/21/17 [History] Levothyroxine 150 mcg PO ACBREAKFAST tablet 06/24/17 [Rx] Budesonide/Formoterol Fumarate [Symbicort 160-4.5 Mcg Inhaler] 2 puff IH BID [History] Albuterol/Ipratropium [DuoNeb 3.0-0.5 MG/3 ML] 3 ml INH Q4H PRN #60 neb [Rx] Past Medical History HEENT History: Reports: Impaired Vision Other HEENT History: glasses only at computer Cardiovascular History: Reports: High Cholesterol, Hypertension Respiratory History: Reports: COPD Gastrointestinal History: Reports: None Genitourinary History: Reports: BPH Musculoskeletal History: Reports: Other (See Below) Other Musculoskeletal History: weakness in leg muscles Psychiatric History: Reports: Anxiety, Depression Endocrine/Metabolic History: Reports: Hypothyroidism - Infectious Disease History Infectious Disease History: Reports: Chicken Pox, Measles, Rubella Other Infectious Disease History: Doesn't know - Past Surgical History HEENT Surgical History: Reports: None Cardiovascular Surgical History: Reports: None Respiratory Surgical History: Reports: None GI Surgical History: Reports: Appendectomy, Hernia, Abdominal Male Surgical History: Reports: None Social & Family History - Family History Family Medical History: Noncontributory - Caffeine Use Caffeine Use: Reports: Coffee ED ROS GENERAL - Review of Systems Review Of Systems: Comprehensive ROS is negative, except as noted in HPI. ED EXAM, GENERAL - Physical Exam Exam: See Below Exam Limited By: No Limitations General Appearance: Alert, Moderate Distress, Thin Eye Exam: Bilateral Eye: EOMI, PERRL Ears: Normal External Exam Nose: Normal Inspection Throat/Mouth: Normal Inspection Head: Atraumatic, Normocephalic Neck: Normal Inspection Respiratory/Chest: Decreased Breath Sounds, Rhonchi, Wheezing Cardiovascular: Normal Peripheral Pulses, Regular Rate, Rhythm Peripheral Pulses: 2+: Dorsalis Pedis (L), Dorsalis Pedis (R) GI/Abdominal: Normal Bowel Sounds, Tender (LLQ) Back Exam: Normal Inspection Course - Vital Signs Last Recorded V/S: Last Vital Signs Temp 37.4 C 07/18/19 08:10 Pulse 91 07/18/19 08:59 Resp 19 07/18/19 08:59 BP 96/69 07/18/19 08:59 Pulse Ox 95 07/18/19 08:59 - Orders/Labs/Meds Orders: Active Orders 24 hr Category Date Time Status Chest Abdomen Pelvis wo Cont [CT] Stat Exams 07/18/19 08:26 Taken Labs: Laboratory Tests 07/18/19 07/18/19 07/18/19 Range/Units 08:36 08:36 08:36 WBC 6.6 (4.0-11.0) K/uL RBC 4.31 L (4.50-6.50) M/uL Hgb 14.0 (13.0-18.0) g/dL Hct 42.6 (40.0-54.0) % MCV 99 H (76-96) fL MCH 32.5 H (27.0-32.0) pg MCHC 32.9 (31.0-35.0) g/dL RDW 14.3 (11.0-16.0) % Plt Count 230 (150-400) K/uL MPV 10.1 H (6.0-10.0) fL Neut % (Auto) 50.7 (45.0-70.0) % Lymph % (Auto) 27.5 (20.0-40.0) % [place] % (Auto) 7.9 (3.0-10.0) % Eos % (Auto) 12.8 H (1.0-5.0) % Baso % (Auto) 1.1 H (0.0-0.5) % Neut # (Auto) 3.34 (2.00-7.50) K/uL Lymph # (Auto) 1.81 (1.50-4.00) K/uL [place] # (Auto) 0.52 (0.20-0.80) K/uL Eos # (Auto) 0.84 H (0.04-0.40) K/uL Baso # (Auto) 0.07 (0.02-0.10) K/uL VBG pH 7.29 L (7.31-7.41) Sodium 141 (136-145) mmol/L Potassium 4.5 (3.5-5.1) mmol/L Chloride 105 (98-107) mmol/L Carbon Dioxide 27.8 (21.0-32.0) mmol/L Anion Gap 12.7 (5.0-15.0) mmol/L BUN 11 (8-26) mg/dL Creatinine 0.91 (0.70-1.30) mg/dL Est Cr Clr Drug Dosing 80.29 mL/min Estimated GFR (MDRD) > 60 (>60) MLS/MIN BUN/Creatinine Ratio 12.1 (6-25) Glucose 105 H (74-100) mg/dL Calcium 8.6 (8.5-10.1) mg/dL Total Bilirubin 0.3 (0.0-1.0) mg/dL AST 13 L (15-37) U/L ALT 24 (12-78) U/L Alkaline Phosphatase 89 (46-116) U/L Troponin I < 0.017 (0.000-0.060) ng/mL B-Natriuretic Peptide 54 D (0-450) pg/mL Total Protein 6.9 (6.4-8.2) g/dL Albumin 3.5 (3.4-5.0) g/dL Globulin 3.4 (2.2-4.2) g/dL Albumin/Globulin Ratio 1.0 (0.8-2.0) TSH, Ultra Sensitive 0.806 D (0.358-3.740) uIU/mL Departure - Departure Time of Disposition: :20 Disposition: Refer to Observation Clinical Impression: COPD exacerbation - Discharge Information Sepsis Event Note - Evaluation Sepsis Screening Result: No Definite Risk - Focused Exam Vital Signs: Vital Signs Temp Pulse Resp BP Pulse Ox 07/18/19 08:59 91 19 96/69 95 07/18/19 08:30 97 15 130/72 4 L 07/18/19 08:10 37.4 C 100 28 H 160/91 H 91 L Date Exam was Performed: 07/18/19 Time Exam was Performed: 09:26 - Problem List & Annotations (1) COPD exacerbation SNOMED Code(s): 615643789 Code(s): J44.1 - CHRONIC OBSTRUCTIVE PULMONARY DISEASE W (ACUTE) EXACERBATION Status: Acute Priority: High Current Visit: Yes Annotation/ Comment:: 10/03/17 - Chronic obstructive pulomnary disease exacerbation 07/14/17 - chronic obstructive pulmonary disease - Problem List Review Problem List Initiated/Reviewed/Updated: Yes - My Orders Last 24 Hours: My Active Orders 07/18/19 08:26 Chest Abdomen Pelvis wo Cont [CT] Stat - Assessment/Plan Last 24 Hours: My Active Orders 07/18/19 08:26 Chest Abdomen Pelvis wo Cont [CT] Stat Plan: Patient to be placed in observation for COPD exacerbation. We will continue close monitoring and maintain saturations at 92-94%. He is on 3L at home at all times. He has improved from stabilization in the ER.
--- NOTE | 2019-07-18 12:17 | CT ---
DATE OF SERVICE: 07/18/19 CLINICAL DATA: Shortness of breath, Abdominal pain UNENHANCED CHEST CT: Multislice acquisition through the chest without IV contrast was performed. No priors. There are emphysematous changes throughout both lungs. There are mild atelectatic changes in both lung bases. There is a 3 mm calcified nodule in the right upper lobe consistent with calcified granuloma from prior granulomatous disease. There is a 1.6 cm oval- shaped pleural-based nodule in the superior segment of the right lower lobe located adjacent to the major fissure. It has spiculated margins. There does appear to be subtle eccentric calcification within it. There is subtle ground glass opacity in the posterior aspect of the right lower lobe suggesting the possibility of pneumonitis. No pleural effusions. No pneumothorax. The heart size is normal. There are mild coronary artery calcifications. No significant pericardial effusion. The proximal pulmonary arteries appear mildly prominent suggesting the possibility of early pulmonary hypertension. No hilar or mediastinal adenopathy. There is degenerative disc disease throughout the thoracic spine. No other significant findings. IMPRESSION: 1. A 1.6 cm pleural-based nodule right lower lobe as discussed above. It does have spiculated margins. There is subtle eccentric calcification within it. Although it could be related to prior granulomatous disease, it is suspicious for a pulmonary malignancy. A PET CT scan may be helpful. 2. Other findings as discussed above. UNENHANCED ABDOMEN AND PELVIC CT: Multislice acquisition through the abdomen and pelvis without IV or oral contrast was performed. No priors. Breathing motion artifact degrades image quality. The unenhanced liver appears normal. No focal hepatic lesions. The gallbladder appears normal. There is diffuse thickening of the gastric wall. This may be related to nondistension. Gastritis or an infiltrating process should be considered. The spleen appears grossly normal. The pancreas appears normal. The right and left adrenals appear normal. The right and left kidneys appear normal. No nephrocalcinosis or nephrolithiasis. No hydronephrosis or hydroureter. The bladder is fluid-filled. It appears normal. The prostate is enlarged. No evidence of appendicitis. There is diverticulosis of the descending and sigmoid colon. No evidence of diverticulitis. No free air. No free fluid. No dilated loops of bowel. No adenopathy. 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 It measures 3.6 cm in diameter. No evidence of leakage. There are bilateral fat-containing inguinal hernias. There is degenerative disc disease throughout the lumbar spine. There is mild anterolisthesis of L5 on S1. There are degenerative changes involving both hip joints. No other significant findings. IMPRESSION: Multiple findings as discussed above. [id number] MTDD
[2019-07-18] MEDS: Albuterol/Ipratropium 3.0-0.5 MG/3 ML Neb Soln INH PRN ×2 (12:45→18:25)
[2019-07-18] MEDS ORDERED: Desvenlafaxine 50 MG Tab.ER PO SCH (20:00)
[2019-07-18] MEDS: DESVENLAFAXINE 100 MG PO SCH (20:23)
[2019-07-18] MEDS: Melatonin 3 MG Tab PO SCH (20:24)
[2019-07-18] MEDS: diphenhydrAMINE 50 MG Cap PO SCH (20:24)
[2019-07-18] MEDS: Tamsulosin 0.4 MG Cap.ER PO SCH (20:24)
[2019-07-18] MEDS: Formoterol/Mometasone 200-5 MCG 8.8 GM Inhaler IH SCH (20:33)
[2019-07-19] MEDS: Albuterol/Ipratropium 3.0-0.5 MG/3 ML Neb Soln INH PRN ×4 (04:00→20:18)
[2019-07-19] MEDS: Levothyroxine 150 MCG Tab PO SCH (06:37)
[2019-07-19] MEDS: Formoterol/Mometasone 200-5 MCG 8.8 GM Inhaler IH SCH ×3 (06:38→20:14)
[2019-07-19] MEDS: Aspirin 81 MG Tab.EC PO SCH (07:29)
[2019-07-19] MEDS: methylPREDNISolone Sodium Succinate 125 MG/2 ML SDV IVPUSH SCH (07:29)
[2019-07-19] MEDS ORDERED: Ondansetron 4 MG Tab.DIS ONE (08:08)
[2019-07-19] MEDS ORDERED: Ondansetron 4 MG Tab.DIS PO ONE (08:11)
--- NOTE | 2019-07-19 10:18 | PN ---
DATE OF VISIT: SUBJECTIVE: Mr. Aguillon's breathing has improved considerably since yesterday after having received 1 dose of Solu-Medrol [address] Starks admitted him and discussed his presentation, etc., prior to leaving for the weekend. The patient did have some lower abdominal pain when he came in, but his primary reason was increased dyspnea the night before he was seen in the emergency room here yesterday. He apparently improved considerably throughout the day yesterday as the patient is familiar to me from his prior admission last month with an acute exacerbation of COPD requiring IV Solu- Medrol and a steroid burst. In the intervening time between then and this admission, he was doing reasonably well at home. He is on home O2 on an as-needed basis. He has not been maintained on oral prednisone. Because of his acute increased exacerbation of COPD symptoms and lower abdominal pain, a CT scan was performed. The CT scan did not show any acute process in his abdomen apart from bilateral inguinal hernias, which was noted on physical examination when he was admitted last month. His chest CT did show a 1.6 cm suspicious appearing nodule in the right lower lobe. This morning although his breathing is much better and his abdominal pain is much better. He does have some mild nausea, but he has not had any vomiting. OBJECTIVE: LUNGS: He does have a few scattered expiratory wheezes and occasional rare rhonchi heard, but I suspect this is close to his baseline given his severe underlying COPD. VITAL SIGNS: Show his blood pressure to be 107/69, heart rate 81, he is afebrile, respiratory rate 19. In addition to his chest findings as noted above, his abdomen is soft and nontender. LABORATORY DATA: His CBC remains normal with a WBC of 9.3. His BMP is also normal except for mild elevation of his glucose at 121. It should be noted that yesterday his BNP was within normal limits. IMPRESSION: 1. Acute exacerbation of chronic obstructive pulmonary disease, improved. 2. Pulmonary nodule on recent CT (see report). 3. Nausea. PLAN: We will go ahead and give him some Zofran as needed for the nausea and give him another dose of Solu-Medrol today. If he continues to be stable from a respiratory standpoint and otherwise we can let him go tomorrow. I would send him home on a steroid burst orally. This was discussed with him. He understands and agrees with this plan. He will need to follow up with Dr Starks to discuss how to proceed with regard to the pulmonary nodule. DOTTIE/RAMAN /[id number] MTDD
[2019-07-19] MEDS: Melatonin 3 MG Tab PO SCH (20:15)
[2019-07-19] MEDS: diphenhydrAMINE 50 MG Cap PO SCH (20:15)
[2019-07-19] MEDS: DESVENLAFAXINE 100 MG PO SCH (20:15)
[2019-07-19] MEDS: Tamsulosin 0.4 MG Cap.ER PO SCH (20:15)
[2019-07-20] MEDS: Levothyroxine 150 MCG Tab PO SCH (07:26)
[2019-07-20] MEDS: Aspirin 81 MG Tab.EC PO SCH (07:27)
[2019-07-20] MEDS: Albuterol/Ipratropium 3.0-0.5 MG/3 ML Neb Soln INH PRN (07:27)
[2019-07-20] MEDS: methylPREDNISolone Sodium Succinate 125 MG/2 ML SDV IVPUSH SCH (07:27)
[2019-07-20] MEDS: Formoterol/Mometasone 200-5 MCG 8.8 GM Inhaler IH SCH (07:28)
[2019-07-20 07:50] VITALS: BP 115/76; PULSE 65
--- NOTE | 2019-07-20 15:20 | DISCH ---
ADMISSION DIAGNOSES: 1. Acute exacerbation of chronic obstructive pulmonary disease. 2. Pulmonary nodule (see CT report). 3. Abdominal pain and nausea, resolved. HOSPITAL COURSE: This 78-year-old gentleman was admitted by Dr. Starks on the above-mentioned date with an acute exacerbation of COPD. He was hospitalized and treated with IV Solu- Medrol, oxygen, and DuoNeb treatments as before, as was the case in previous hospitalizations. He improved quite rapidly and he was having some abdominal pain and nausea because of this as well. He underwent CT scanning of his chest and his abdomen with the finding of a 1.6 cm suspicious appearing nodule in the right lower lobe of his lung. The patient has been informed of this. Further testing including PET scanning was suggested by the radiologist. The patient improved on Solu-Medrol IV. His O2 sats on 3 L of oxygen per nasal cannula remained in the mid 90s. His abdominal pain and nausea resolved. On physical examination this morning, he still has scattered wheezes and rhonchi consistent with his severe COPD. I believe this is his baseline. His abdomen is soft. DISCHARGE DIAGNOSES: 1. Acute exacerbation of chronic obstructive pulmonary disease. 2. Pulmonary nodule (see CT report). 3. Abdominal pain and nausea, resolved. PLAN: He will be discharged on the same medications he was taking on admission with the exception that he was prescribed an additional steroid burst of 40 mg of prednisone daily beginning tomorrow x3 days. He should be followed up in the clinic as an outpatient to discuss where to proceed with regard to the pulmonary nodule in terms of PET scanning or possible referral, etc. The patient does understand this finding and the importance of following up for this purpose. He will resume his usual home oxygen as needed and all of his other medications will remain the same. DOTTIE/RAMAN /[id number]
== END 2019-07-20 11:30 | disposition home or self-care (01) ==
LOC: LB.ED 07:57 → LB.MS 09:28
PROVIDERS: ADMIT Family Medicine; ATTEND Family Medicine
DX: J44.1 Chronic obstructive pulmonary disease with (acute) exacerbation (principal); R91.1 Solitary pulmonary nodule; R10.32 Left lower quadrant pain; R11.0 Nausea; I10 Essential (primary) hypertension; E03.9 Hypothyroidism, unspecified; E78.00 Pure hypercholesterolemia, unspecified; F32.9 Major depressive disorder, single episode, unspecified; N40.0 Benign prostatic hyperplasia without lower urinary tract symptoms; Z87.891 Personal history of nicotine dependence; Z79.890 Hormone replacement therapy; Z79.899 Other long term (current) drug therapy; Z79.51 Long term (current) use of inhaled steroids; Z99.81 Dependence on supplemental oxygen
CPT/HCPCS: 36415; 71250; 74176; 80048; 80053; 82800; 83880; 84443; 84484; 85025; 96374; 96375; 96376; 97161; 97165; 99285; A0425; A9270; G0378; J2060; J2930; J7620-GY

== ENCOUNTER 2019-10-11 12:22 | Inpatient (IN) | payer MEDICARE, MEDICAID ==
[2019-10-11] MEDS: Sodium Chloride 0.9% 1,000 ML IV SCH (14:31)
[2019-10-11] MEDS ORDERED: Acetaminophen 650 MG Tab.ER ONE (15:50)
[2019-10-11] MEDS: Albuterol/Ipratropium 3.0-0.5 MG/3 ML Neb Soln INH PRN ×2 (16:39→20:17)
[2019-10-11] MEDS ORDERED: Azithromycin 500 MG AdvVial IV SCH (17:30)
[2019-10-11] MEDS: Azithromycin 500 MG in Sodium Chloride 0.9% 250 ML IV SCH (18:11)
--- NOTE | 2019-10-11 18:28 | HP ---
REASON FOR ADMISSION: Fever and weakness. HISTORY: Mr. Aguillon is a 78-year-old man with a past history of severe COPD for which he has been hospitalized a number of times over the past year. He has had some rather generalized weakness that has evolved over the past several months, however, between yesterday and this morning, he developed a significantly increased amount of weakness to the extent that it was very hard for him to stand. He thought he had a low-grade fever earlier this morning, but because of his weakness, the ambulance was called to provide assistance and transport him to the hospital for evaluation. He and his live together at home. The patient has not had any increased COPD symptoms and his respiratory status has been remarkably stable. He denies any GI symptoms of nausea, vomiting, or diarrhea, although he has not had a bowel movement for the past 2 days. He does get some mild occasional left lower quadrant pain which he attributes to an inguinal hernia. He denies any sore throat or nasal congestion. He denies any headache. He has not had any urinary symptoms. On arrival, the admissions dean checked his temperature and his fever was 102 degrees. He was brought to the emergency department for evaluation. PAST MEDICAL HISTORY: 1. COPD, severe. 2. Bilateral Achilles tendon rupture. 3. History of depression. 4. Hypothyroidism. 5. History of vasovagal episodes. MEDICATIONS: Include, 1. Venlafaxine. 2. Symbicort inhaler. 3. Levothyroxine. 4. Albuterol with ipratropium (DuoNeb nebulizers). 5. Flomax. 6. Baby aspirin. ALLERGIES: NONE TO MEDICATIONS. REVIEW OF SYSTEMS: Pertinent positives and negatives as listed in the HPI. PHYSICAL EXAMINATION: GENERAL: He is alert and in no acute distress. VITAL SIGNS: His temperature in the emergency room was 37.7 degrees centigrade, heart rate 96, blood pressure is 111/67, respiratory rate 16, O2 sats 95% on 3 L of O2 per nasal cannula. He is alert and responsive. HEENT: He has some crusting about his eyelids and perhaps some early conjunctivitis bilaterally. There is no scleral icterus. Oropharynx is normal with no exudates or edema. He is edentulous. TMs are normal. NECK: Supple with no JVD. No adenopathy is felt. CHEST: Clear to auscultation, which is remarkable for him based on my recollection of his previous examinations. There are no wheezes or rhonchi. There is reasonably good air exchange bilaterally. CARDIAC: Regular rate without murmur. ABDOMEN: Soft and nontender. He does have a left inguinal hernia which is reducible and nontender. EXTREMITIES: Normal pulses. No edema. No cyanosis. LABORATORY DATA: His CBC reveals a normal white count at 6800, but he does have lymphopenia which is noteworthy with only 6.2% lymphocytes. His hemoglobin is 13.6. His CMP is unremarkable. He has no transaminase elevations. His electrolytes are normal and his renal function is normal as well. Urinalysis was negative for anything suggestive of UTI. A chest x-ray was obtained and it does show a 1.7 cm nodular area with possible central lucency in the right suprahilar region. It was felt that they could not exclude a cavitary lesion based on this plain film. No infiltrates were noted. He does have more prominent interstitial markings compared to previous films. IMPRESSION: Fever and weakness with the above-mentioned chest x-ray finding and lymphopenia, which may be significant. PLAN: We will admit him, maintain him with some IV hydration, and blood cultures were obtained. Shortly after his admission to the floor, he did spike a temperature to 102 degrees at which time cultures were obtained yet again. We went ahead and obtained a the nasopharyngeal swab for COVID-19 and the results are pending. His flu swab for influenza A and B was negative. I went ahead and ordered a lactate, C-reactive protein, and sedimentation rate. Those results are pending as well. It should be noted that he had a CT scan back in July, which showed a 1.6 cm pleural-based nodule in the right lower lobe that was moderately suspicious for a possible pulmonary malignancy. I am not sure if the pulmonary findings regarding the lesions on chest x-ray are related to his fever. I think we are obligated to treat him empirically with antibiotics now that we have obtained cultures and await the COVID-19 testing. Given his age and debility from severe COPD, I am not certain how far we should go with any further imaging. This was explained to the patient. He understands and agrees. DOTTIE/RAMAN
[2019-10-11] MEDS: cefTRIAXone 1 GM in Sodium Chloride 0.9% 50 ML IV SCH (19:19)
[2019-10-11] MEDS: Tamsulosin 0.4 MG Cap.ER PO SCH (20:18)
[2019-10-11] MEDS: Desvenlafaxine 50 MG Tab.ER PO SCH (20:18)
[2019-10-11] MEDS: Fluticasone Propionate Nasal Spray 16 GM Bottle NASBOTH SCH (20:36)
[2019-10-11] MEDS: Acetaminophen 325 MG Tab PO PRN (20:36)
[2019-10-11] MEDS: Non-Formulary Medication 1 Each (Budesonide/Formoterol Fumarate [Symbicort 160-4.5 Mcg Inh IH SCH (20:39)
[2019-10-11] MEDS ORDERED: Ketorolac 30 MG/ML SDV IVPUSH ONE (22:18)
[2019-10-11] MEDS ORDERED: HYDROmorphone 2 MG/ML SDV IVPUSH PRN (22:20)
[2019-10-12] MEDS: Sodium Chloride 0.9% 1,000 ML IV SCH ×3 (01:36→21:33)
[2019-10-12] MEDS: Albuterol/Ipratropium 3.0-0.5 MG/3 ML Neb Soln INH PRN ×4 (05:42→23:53)
[2019-10-12] MEDS: Acetaminophen 325 MG Tab PO PRN ×2 (06:05→15:02)
[2019-10-12] MEDS: Levothyroxine 150 MCG Tab PO SCH (06:05)
[2019-10-12] MEDS: Aspirin 81 MG Tab.EC PO SCH (11:44)
[2019-10-12] MEDS: Fluticasone Propionate Nasal Spray 16 GM Bottle NASBOTH SCH ×2 (11:44→19:13)
[2019-10-12] MEDS: Non-Formulary Medication 1 Each (Budesonide/Formoterol Fumarate [Symbicort 160-4.5 Mcg Inh IH SCH ×2 (11:45→19:13)
--- NOTE | 2019-10-12 14:55 | CR ---
DATE OF SERVICE: 10/11/19 CLINICAL DATA: short of breath,weakness AP PORTABLE CHEST: Comparison is made to a prior exam dated 07/18/19. The heart size is normal. There is prominence of the proximal pulmonary artery suggesting the possibility of pulmonary hypertension. There are scattered reticular opacities throughout both lungs. These have mildly progressed from the prior study. No areas of consolidation. No pneumothorax. There is a nodular density in the right suprahilar region that I do not see on the prior exam. No corresponding abnormality on the recent CT dated 07/18/19. This is probably confluence of densities. The lungs are otherwise clear. No pneumothorax. No pleural effusions. The remainder of the exam is unchanged from the prior. [id number] [facility]
[2019-10-12] MEDS: cefTRIAXone 1 GM in Sodium Chloride 0.9% 50 ML IV SCH (16:40)
[2019-10-12] MEDS: Azithromycin 500 MG in Sodium Chloride 0.9% 250 ML IV SCH (17:12)
[2019-10-12] MEDS: Tamsulosin 0.4 MG Cap.ER PO SCH (19:13)
[2019-10-12] MEDS: Desvenlafaxine 50 MG Tab.ER PO SCH (19:13)
[2019-10-13] MEDS: Acetaminophen 325 MG Tab PO PRN ×2 (00:58→04:15)
[2019-10-13] MEDS ORDERED: LORazepam 0.5 MG Tab ONE (02:58)
[2019-10-13] MEDS: LORazepam 0.5 MG Tab PO PRN ×4 (03:04→20:27)
[2019-10-13] MEDS: Levothyroxine 150 MCG Tab PO SCH (07:34)
[2019-10-13] MEDS: Sodium Chloride 0.9% 1,000 ML IV SCH ×3 (07:34→21:02)
[2019-10-13] MEDS: Aspirin 81 MG Tab.EC PO SCH (07:34)
[2019-10-13] MEDS: Fluticasone Propionate Nasal Spray 16 GM Bottle NASBOTH SCH ×2 (07:36→20:30)
--- NOTE | 2019-10-13 08:33 | PN ---
DATE OF VISIT: 10/12/2019 SUBJECTIVE: Mr. Aguillon continues to feel weak. He had fever yesterday x2, but is afebrile this morning. He does not have any increased cough or shortness of breath. He denies any abdominal pain. His headache is diminished, although he did require some Dilaudid yesterday. OBJECTIVE: VITAL SIGNS: His O2 sats remain satisfactory ranging from 95 to 98 on 3 L of O2 per nasal cannula. His blood pressure is 121/67 with a heart rate of 79. He is afebrile. HEENT: Unremarkable. CHEST: Clear to auscultation. ABDOMEN: Nondistended and soft. IMPRESSION: Still profoundly weak, but somewhat improved in terms of fever. PLAN: I think we will go ahead and repeat his chest x-ray in the morning and recheck his CBC and electrolytes. He was negative for COVID-19 and influenza. Blood cultures are pending at this time. DOTTIE/RAMAN /[id number]
[2019-10-13] MEDS ORDERED: methylPREDNISolone Sodium Succinate 125 MG/2 ML SDV IVPUSH ONE (09:06)
--- NOTE | 2019-10-13 10:40 | CR ---
DATE OF SERVICE: 10/13/19 CLINICAL DATA: Difficulty breathing. AP CHEST: Comparison is made to a prior exam dated 10/11/19. The heart size is stable. The pulmonary vasculature remains prominent. There is increased density in the right lung base on today's exam consistent with basilar atelectasis or infiltrate. Pneumonia should be considered. The exam is otherwise unchanged from the prior. [id number] [facility]
[2019-10-13] MEDS: Albuterol/Ipratropium 3.0-0.5 MG/3 ML Neb Soln INH PRN (11:40)
[2019-10-13] MEDS: Non-Formulary Medication 1 Each (Budesonide/Formoterol Fumarate [Symbicort 160-4.5 Mcg Inh IH SCH (11:42)
[2019-10-13] MEDS: Formoterol/Mometasone 200-5 MCG 8.8 GM Inhaler IH SCH ×2 (11:55→20:25)
--- NOTE | 2019-10-13 15:41 | PCM.PN ---
- General Info Date of Service: 10/13/19 Admission Dx/Problem (Free Text): Weakness, COPD Subjective Update: Patient states he is not feeling any better today. Requesting Solu Medrol because he "can't breathe!" Appetite decreased; decreased tolerance for any type of activity. Functional Status: Reports: Pain Controlled - Review of Systems General: Reports: Weakness. Denies: Fever, Appetite HEENT: Denies: Ear Pain, Eye Pain, Headaches Pulmonary: Reports: Shortness of Breath, Cough, Wheezing Cardiovascular: Reports: Dyspnea on Exertion, Orthopnea. Denies: Chest Pain Gastrointestinal: Reports: Abdominal Pain, Decreased Appetite. Denies: Diarrhea , Nausea, Vomiting Genitourinary: Reports: No Symptoms Skin: Reports: No Symptoms Neurological: Reports: No Symptoms Psychiatric: Reports: No Symptoms - Patient Data Vitals - Most Recent: Last Vital Signs Temp 37.2 C 10/13/19 12:54 Pulse 70 10/13/19 12:54 Resp 24 H 10/13/19 12:54 BP 129/80 10/13/19 12:54 Pulse Ox 96 10/13/19 08:19 Weight - Most Recent: 189.6 kg I&O - Last 24 Hours: Intake & Output 10/13/19 10/13/19 10/13/19 06:59 14:59 22:59 Intake Total 1450 500 Output Total 1050 450 Balance 400 50 Lab Results Last 24 Hours: Laboratory Results - last 24 hr 10/13/19 10/13/19 10/13/19 Range/Units 08:30 08:30 08:30 WBC 6.5 (4.0-11.0) K/uL RBC 3.71 L (4.50-6.50) M/uL Hgb 11.9 L (13.0-18.0) g/dL Hct 35.5 L (40.0-54.0) % MCV 96 (76-96) fL MCH 32.1 H (27.0-32.0) pg MCHC 33.5 (31.0-35.0) g/dL RDW 13.5 (11.0-16.0) % Plt Count 169 D (150-400) K/uL MPV 9.7 (6.0-10.0) fL Neut % (Auto) 77.7 H (45.0-70.0) % Lymph % (Auto) 14.7 L (20.0-40.0) % Parke % (Auto) 6.5 (3.0-10.0) % Eos % (Auto) 0.6 L (1.0-5.0) % Baso % (Auto) 0.5 (0.0-0.5) % Neut # (Auto) 5.01 (2.00-7.50) K/uL Lymph # (Auto) 0.95 L (1.50-4.00) K/uL Parke # (Auto) 0.42 (0.20-0.80) K/uL Eos # (Auto) 0.04 (0.04-0.40) K/uL Baso # (Auto) 0.03 (0.02-0.10) K/uL ESR 36 H (0-20) mm/hr Sodium 139 (136-145) mmol/L Potassium 3.4 L (3.5-5.1) mmol/L Chloride 105 (98-107) mmol/L Carbon Dioxide 26.2 (21.0-32.0) mmol/L Anion Gap 11.2 (5.0-15.0) mmol/L BUN 7 L D (8-26) mg/dL Creatinine 0.67 L D (0.70-1.30) mg/dL Est Cr Clr Drug Dosing 106.00 mL/min Estimated GFR (MDRD) > 60 (>60) MLS/MIN BUN/Creatinine Ratio 10.4 (6-25) Glucose 110 H (74-100) mg/dL Lactic Acid 0.5 (0.4-2.0) mmol/L Calcium 8.0 L (8.5-10.1) mg/dL Jeanmarie Results Last 24 Hours: Microbiology 10/11/19 13:30 Aerobic Blood Culture - Preliminary Blood NO GROWTH AFTER 2 DAYS Anaerobic Blood Culture - Preliminary NO GROWTH AFTER 2 DAYS 10/11/19 16:30 Aerobic Blood Culture - Preliminary Blood NO GROWTH AFTER 1 DAY Anaerobic Blood Culture - Preliminary NO GROWTH AFTER 1 DAY Med Orders - Current: Current Medications Acetaminophen (Tylenol) 650 mg PO Q4H PRN PRN Reason: pain Last Admin: 10/13/19 04:15 Dose: 650 mg Albuterol/Ipratropium (Duoneb 3.0-0.5 Mg/3 Ml) 3 ml INH Q4H PRN PRN Reason: Wheezing Last Admin: 10/13/19 11:40 Dose: 3 ml Aspirin (Halfprin) 81 mg PO DAILY [facility] Last Admin: 10/13/19 07:34 Dose: 81 mg Desvenlafaxine Succinate (Pristiq) 100 mg PO QPM [facility] Last Admin: 10/12/19 19:13 Dose: 100 mg Fluticasone Propionate (Flonase) 1 gm NASBOTH BID [facility] Last Admin: 10/13/19 07:36 Dose: 2 spray Hydromorphone HCl (Dilaudid) 1 mg IVPUSH Q4H PRN PRN Reason: Breakthrough Pain Sodium Chloride (Normal Saline) 1,000 mls @ 100 mls/hr IV ASDIRECTED [facility] Last Admin: 10/13/19 07:34 Dose: 100 mls/hr Ceftriaxone Sodium 1 gm/ (Sodium Chloride) 50 mls @ 200 mls/hr IV Q24H [facility] Last Admin: 10/12/19 16:40 Dose: 200 mls/hr Azithromycin 500 mg/ Sodium (Chloride) 250 mls @ 250 mls/hr IV Q24H [facility] Last Admin: 10/12/19 17:12 Dose: 250 mls/hr Levothyroxine Sodium (Levothyroxine) 150 mcg PO ACBREAKFAST [facility] Last Admin: 10/13/19 07:34 Dose: 150 mcg Lorazepam (Ativan) 0.5 mg PO Q4H PRN PRN Reason: Anxiety Last Admin: 10/13/19 14:04 Dose: 0.5 mg Mometasone Furoate/Formoterol Fumar (Dulera 200-5 Mcg) 2 puff IH BID [facility] Last Admin: 10/13/19 11:55 Dose: 2 puff Senna/Docusate Sodium (Senna Plus) 1 tab PO BID [facility] Last Admin: 10/13/19 07:35 Dose: 1 tab Tamsulosin HCl (Flomax) 0.4 mg PO QPM [facility] Last Admin: 10/12/19 19:13 Dose: 0.4 mg Discontinued Medications Acetaminophen (Tylenol Arthritis Pain) Confirm Administered Dose 650 mg .ROUTE .STK-MED ONE Stop: 10/11/19 15:51 Last Admin: 10/11/19 16:40 Dose: 650 mg Azithromycin (Zithromax) 500 mg IV Q24H [facility] Ketorolac Tromethamine (Toradol) 30 mg IVPUSH ONETIME ONE Stop: 10/11/19 22:19 Last Admin: 10/11/19 22:30 Dose: 30 mg Lorazepam (Ativan) Confirm Administered Dose 0.5 mg .ROUTE .STK-MED ONE Stop: 10/13/19 02:59 Last Admin: 10/13/19 03:59 Dose: Not Given Methylprednisolone Sodium Succinate (Solu-Medrol) 125 mg IVPUSH ONETIME ONE Stop: 10/13/19 09:07 Last Admin: 10/13/19 09:36 Dose: 125 mg Non-Formulary Medication (Budesonide/Formoterol Fumarate [Symbicort 160-4.5 Mcg Inhaler]) 2 puff IH BID [place] Last Admin: 10/13/19 11:42 Dose: Not Given - Exam Quality Assessment: Supplemental Oxygen General: Alert, Oriented, Mild Distress HEENT: Pupils Equal, Pupils Reactive, EOMI, Mucous Membr. Moist/[place] Neck: Supple Lungs: Decreased Breath Sounds (bilateral bases), Rhonchi, Wheezing (scattered expiratory) Cardiovascular: Regular Rate, Regular Rhythm Skin: Warm, Dry, Intact Neurological: No New Focal Deficit Psy/Mental Status: Alert, Normal Affect, Normal Mood Sepsis Event Note - Evaluation Sepsis Screening Result: No Definite Risk - Focused Exam Vital Signs: Vital Signs Temp Pulse Resp BP Pulse Ox 10/13/19 12:54 37.2 C 70 24 H 129/80 10/13/19 08:19 37.3 C 70 16 133/88 96 10/13/19 04:03 17 Date Exam was Performed: 10/13/19 Time Exam was Performed: 15:36 - Problem List & Annotations (1) COPD (chronic obstructive pulmonary disease) SNOMED Code(s): 26787596 Code(s): J44.9 - CHRONIC OBSTRUCTIVE PULMONARY DISEASE, UNSPECIFIED Status : Chronic Priority: High Current Visit: No (2) Weakness SNOMED Code(s): 36490144 Code(s): R53.1 - WEAKNESS Status: Acute Current Visit: Yes - Problem List Review Problem List Initiated/Reviewed/Updated: Yes - Assessment Assessment:: 10/13/2019 Assessment COPD Weakness Plan SoluMedrol today Encourage activity
[2019-10-13] MEDS: cefTRIAXone 1 GM in Sodium Chloride 0.9% 50 ML IV SCH (17:11)
[2019-10-13] MEDS: Azithromycin 500 MG in Sodium Chloride 0.9% 250 ML IV SCH (17:42)
[2019-10-13] MEDS: Desvenlafaxine 50 MG Tab.ER PO SCH (20:25)
[2019-10-13] MEDS: Tamsulosin 0.4 MG Cap.ER PO SCH (20:31)
[2019-10-14] MEDS: Sodium Chloride 0.9% 1,000 ML IV SCH (05:19)
[2019-10-14] MEDS: Albuterol/Ipratropium 3.0-0.5 MG/3 ML Neb Soln INH PRN (07:39)
[2019-10-14] MEDS: Levothyroxine 150 MCG Tab PO SCH (07:40)
[2019-10-14] MEDS: Formoterol/Mometasone 200-5 MCG 8.8 GM Inhaler IH SCH ×2 (07:40→20:29)
[2019-10-14] MEDS: Fluticasone Propionate Nasal Spray 16 GM Bottle NASBOTH SCH ×2 (07:40→20:29)
[2019-10-14] MEDS: Aspirin 81 MG Tab.EC PO SCH (07:40)
[2019-10-14] MEDS: LORazepam 0.5 MG Tab PO PRN ×3 (10:58→20:28)
--- NOTE | 2019-10-14 11:03 | PCM.PN ---
- General Info Date of Service: 10/14/19 Admission Dx/Problem (Free Text): Weakness, COPD Subjective Update: Patient states he feels better this morning, denies pain and has an improved appetite. He states his "breathing is better today." Functional Status: Reports: Pain Controlled, Tolerating Diet - Review of Systems General: Reports: Weakness (weakness continues; easily fatigued by any activity- working with PT) HEENT: Reports: No Symptoms Pulmonary: Reports: Cough Cardiovascular: Reports: Chest Pain Gastrointestinal: Reports: No Symptoms Musculoskeletal: Reports: No Symptoms Skin: Reports: No Symptoms Neurological: Reports: No Symptoms - Patient Data Vitals - Most Recent: Last Vital Signs Temp 36.6 C 10/14/19 07:52 Pulse 75 10/14/19 07:52 Resp 18 10/14/19 07:52 BP 140/80 10/14/19 07:52 Pulse Ox 96 10/14/19 07:52 Weight - Most Recent: 86.001 kg I&O - Last 24 Hours: Intake & Output 10/13/19 10/14/19 10/14/19 22:59 06:59 14:59 Intake Total 1650 1950 Output Total 2200 550 Balance -550 1400 Jeanmarie Results Last 24 Hours: Microbiology 10/13/19 12:00 MRSA Surveillance Culture - Final Nares, Unspecified NO MRSA ISOLATED 10/11/19 16:30 Aerobic Blood Culture - Preliminary Blood Anaerobic Blood Culture - Preliminary NO GROWTH AFTER 2 DAYS 10/11/19 13:30 Aerobic Blood Culture - Preliminary Blood NO GROWTH AFTER 2 DAYS Anaerobic Blood Culture - Preliminary NO GROWTH AFTER 2 DAYS Med Orders - Current: Current Medications Acetaminophen (Tylenol) 650 mg PO Q4H PRN PRN Reason: pain Last Admin: 10/13/19 04:15 Dose: 650 mg Albuterol/Ipratropium (Duoneb 3.0-0.5 Mg/3 Ml) 3 ml INH Q4H PRN PRN Reason: Wheezing Last Admin: 10/14/19 07:39 Dose: 3 ml Aspirin (Halfprin) 81 mg PO DAILY [facility] Last Admin: 10/14/19 07:40 Dose: 81 mg Desvenlafaxine Succinate (Pristiq) 100 mg PO QPM [facility] Last Admin: 10/13/19 20:25 Dose: 100 mg Fluticasone Propionate (Flonase) 1 gm NASBOTH BID [facility] Last Admin: 10/14/19 07:40 Dose: 2 spray Hydromorphone HCl (Dilaudid) 1 mg IVPUSH Q4H PRN PRN Reason: Breakthrough Pain Sodium Chloride (Normal Saline) 1,000 mls @ 100 mls/hr IV ASDIRECTED [facility] Last Admin: 10/14/19 05:19 Dose: 100 mls/hr Ceftriaxone Sodium 1 gm/ (Sodium Chloride) 50 mls @ 200 mls/hr IV Q24H [facility] Last Admin: 10/13/19 17:11 Dose: 200 mls/hr Azithromycin 500 mg/ Sodium (Chloride) 250 mls @ 250 mls/hr IV Q24H [facility] Last Admin: 10/13/19 17:42 Dose: 250 mls/hr Levothyroxine Sodium (Levothyroxine) 150 mcg PO ACBREAKFAST [facility] Last Admin: 10/14/19 07:40 Dose: 150 mcg Lorazepam (Ativan) 0.5 mg PO Q4H PRN PRN Reason: Anxiety Last Admin: 10/13/19 20:27 Dose: 0.5 mg Mometasone Furoate/Formoterol Fumar (Dulera 200-5 Mcg) 2 puff IH BID [facility] Last Admin: 10/14/19 07:40 Dose: 2 puff Senna/Docusate Sodium (Senna Plus) 1 tab PO BID [facility] Last Admin: 10/14/19 07:40 Dose: 1 tab Tamsulosin HCl (Flomax) 0.4 mg PO QPM [facility] Last Admin: 10/13/19 20:31 Dose: 0.4 mg Discontinued Medications Acetaminophen (Tylenol Arthritis Pain) Confirm Administered Dose 650 mg .ROUTE .STK-MED ONE Stop: 10/11/19 15:51 Last Admin: 10/11/19 16:40 Dose: 650 mg Azithromycin (Zithromax) 500 mg IV Q24H [facility] Ketorolac Tromethamine (Toradol) 30 mg IVPUSH ONETIME ONE Stop: 10/11/19 22:19 Last Admin: 10/11/19 22:30 Dose: 30 mg Lorazepam (Ativan) Confirm Administered Dose 0.5 mg .ROUTE .STK-MED ONE Stop: 10/13/19 02:59 Last Admin: 10/13/19 03:59 Dose: Not Given Methylprednisolone Sodium Succinate (Solu-Medrol) 125 mg IVPUSH ONETIME ONE Stop: 10/13/19 09:07 Last Admin: 10/13/19 09:36 Dose: 125 mg Non-Formulary Medication (Budesonide/Formoterol Fumarate [Symbicort 160-4.5 Mcg Inhaler]) 2 puff IH BID [place] Last Admin: 10/13/19 11:42 Dose: Not Given - Exam Quality Assessment: Supplemental Oxygen General: Alert, Oriented HEENT: Pupils Equal, Pupils Reactive, EOMI, Mucous Membr. Moist/[place] Neck: Supple Lungs: Normal Respiratory Effort, Decreased Breath Sounds (mildly decreased in bilateral bases), Crackles (few scattered). No: Rales, Rhonchi, Wheezing Cardiovascular: Regular Rate, Regular Rhythm GI/Abdominal Exam: Soft, Non-Tender, No Distention Extremities: Normal Range of Motion Skin: Warm, Dry, Intact Neurological: No New Focal Deficit Psy/Mental Status: Alert Sepsis Event Note - Evaluation Sepsis Screening Result: No Definite Risk - Focused Exam Vital Signs: Vital Signs Temp Pulse Resp BP Pulse Ox 10/14/19 07:52 36.6 C 75 18 140/80 96 10/14/19 04:00 36.4 C 59 L 16 134/72 100 10/14/19 00:00 36.6 C 16 136/66 98 Date Exam was Performed: 10/14/19 Time Exam was Performed: 10:55 - Problem List & Annotations (1) COPD (chronic obstructive pulmonary disease) SNOMED Code(s): 30137349 Code(s): J44.9 - CHRONIC OBSTRUCTIVE PULMONARY DISEASE, UNSPECIFIED Status : Chronic Priority: High Current Visit: No (2) Weakness SNOMED Code(s): 42256947 Code(s): R53.1 - WEAKNESS Status: Acute Current Visit: Yes - Problem List Review Problem List Initiated/Reviewed/Updated: Yes - Assessment Assessment:: 10/13/2019 Assessment COPD Weakness Plan SoluMedrol today Encourage activity 10/14/2019 Assessment COPD-improved Weakness-improving Positive Blood Culture Plan Continue to work with PT on strengthening. Await culture sensitivities Plan for discharge 10/14
[2019-10-14] MEDS: cefTRIAXone 1 GM in Sodium Chloride 0.9% 50 ML IV SCH (16:44)
[2019-10-14] MEDS: Azithromycin 500 MG in Sodium Chloride 0.9% 250 ML IV SCH (17:06)
[2019-10-14] MEDS: Desvenlafaxine 50 MG Tab.ER PO SCH (20:26)
[2019-10-14] MEDS: Acetaminophen 325 MG Tab PO PRN (20:27)
[2019-10-14] MEDS: Tamsulosin 0.4 MG Cap.ER PO SCH (20:28)
[2019-10-14] MEDS ORDERED: LORazepam 1 MG Tab ONE (22:12)
[2019-10-14] MEDS ORDERED: LORazepam 1 MG Tab PO PRN (22:50)
[2019-10-15] MEDS: Acetaminophen 325 MG Tab PO PRN ×2 (02:09→07:37)
[2019-10-15] MEDS: LORazepam 0.5 MG Tab PO PRN (02:10)
--- NOTE | 2019-10-15 04:31 | PCM.SN.2 ---
- Free Text/Narrative Note: Patient slipped while standing to use urinal and found on the floor. PE General: Alert, in NAD; able to tell me what happened. Head: Normocephalic, atraumatic HEENT: [place] Neck: Supple with full ROM Chest: symmetric Lungs: coarse bilaterally with productive cough MSK: RODRIGUEZ with good ROM Skin: 6 cm avulsion to right lateral elbow; 0.5 cm avulsion overlying proximal ulna Wounds cleaned with NS and dried. Benzoin applied to skin edges. Avulsion pulled closed with steri-strips. Wounds covered with tegaderm. Patient tolerated procedure well.
[2019-10-15] MEDS: Albuterol/Ipratropium 3.0-0.5 MG/3 ML Neb Soln INH PRN ×2 (04:45→09:06)
[2019-10-15 05:31] VITALS: PULSE 70
[2019-10-15] MEDS: Levothyroxine 150 MCG Tab PO SCH (07:36)
[2019-10-15] MEDS: Aspirin 81 MG Tab.EC PO SCH (07:36)
[2019-10-15] MEDS: Formoterol/Mometasone 200-5 MCG 8.8 GM Inhaler IH SCH (07:37)
[2019-10-15] MEDS: Fluticasone Propionate Nasal Spray 16 GM Bottle NASBOTH SCH (07:38)
[2019-10-15 08:18] VITALS: BP 133/83
[2019-10-15] MEDS ORDERED: LORazepam 1 MG Tab PO PRN (10:40)
[2019-10-15] MEDS ORDERED: Amoxicillin/Clavulanate K 875-125 MG Tab PO SCH (20:00)
== END 2019-10-15 11:30 | disposition swing bed (61) | DRG 947 ==
LOC: LB.ED 12:22 → LB.MS 15:02 → UNDOADMIN 15:15
PROVIDERS: ADMIT Surgery; ATTEND Surgery
DX: R50.9 Fever, unspecified (principal); R53.1 Weakness; D72.810 Lymphocytopenia; J44.9 Chronic obstructive pulmonary disease, unspecified; J18.9 Pneumonia, unspecified organism; J44.0 Chronic obstructive pulmonary disease with (acute) lower respiratory infection; F32.9 Major depressive disorder, single episode, unspecified; E03.9 Hypothyroidism, unspecified; Z79.51 Long term (current) use of inhaled steroids; Z20.828 Contact with and (suspected) exposure to other viral communicable diseases; Z79.890 Hormone replacement therapy; Z79.82 Long term (current) use of aspirin; Z79.899 Other long term (current) drug therapy
CPT/HCPCS: 36415; 71045; 80048; 80053; 81003; 83605; 83615; 85025; 85651; 86140; 87040; 87077; 87186; 87804; 87804-59; 97110-GO; 97161-GP; 97165-GO; 99285-25; A0425; A0429; A9270-GY; J0456; J0696; J1885; J2930; J7030; J7050; J7620-GY; U0002

== ENCOUNTER 2019-10-15 10:20 | Inpatient (IN) | payer MEDICARE, MEDICAID ==
[2019-10-15] MEDS ORDERED: Tuberculin, PPD 5 Units/0.1 ML 1 ML MDV IDERM ONE (17:43)
--- NOTE | 2019-10-15 17:56 | PCM.PN ---
- General Info Date of Service: 10/15/19 Admission Dx/Problem (Free Text): Weakness Subjective Update: Patient continues to improve from a respiratory standpoint with improving air entry and decreased wheezing. He continues to have intermittent productive cough that improves with a neb. He denies any pain. He has not had a fever and VSS. Appetite is improving. He does remain rather week and requires assistance with ADLs, transfers, and walking. He continues to work with PT and OT who believe he could benefit from additional therapy. Functional Status: Reports: Pain Controlled - Review of Systems General: Reports: Weakness. Denies: Fever, Chills HEENT: Reports: No Symptoms Pulmonary: Reports: Cough Cardiovascular: Reports: Dyspnea on Exertion. Denies: Chest Pain, Palpitations Gastrointestinal: Denies: Abdominal Pain, Diarrhea, Nausea, Vomiting Musculoskeletal: Reports: No Symptoms Skin: Reports: No Symptoms Neurological: Reports: No Symptoms - Patient Data Vitals - Most Recent: Last Vital Signs Temp 37.0 C 10/15/19 11:20 Pulse 74 10/15/19 11:20 Resp 18 10/15/19 11:20 BP 130/81 10/15/19 11:20 Pulse Ox 94 L 10/15/19 11:20 Weight - Most Recent: 83.915 kg I&O - Last 24 Hours: Intake & Output 10/15/19 10/15/19 10/15/19 06:59 14:59 22:59 Intake Total 500 Output Total 600 Balance -100 Med Orders - Current: Current Medications Non-Formulary Medication (Albuterol/Ipratropium [Duoneb 3.0-0.5 Mg/3 Ml]) 3 ml INH Q4H PRN PRN Reason: Wheezing Non-Formulary Medication (Aspirin [Halfprin]) 81 mg PO DAILY [place] Non-Formulary Medication (Budesonide/Formoterol Fumarate [Symbicort 160-4.5 Mcg Inhaler]) 2 puff IH BID [place] Non-Formulary Medication (Desvenlafaxine [Pristiq]) 100 mg PO QPM [place] Non-Formulary Medication (Levothyroxine [Levothyroxine]) 150 mcg PO ACBREAKFAST [place] Non-Formulary Medication (Tamsulosin Hcl [Flomax]) 0.4 mg PO QPM [place] Tuberculin PPD (Aplisol) 5 unit IDERM ONETIME ONE Stop: 10/15/19 17:44 - Exam General: Alert, Oriented HEENT: Pupils Equal, Pupils Reactive, EOMI, Mucous Membr. Moist/[place] Neck: Supple Lungs: Normal Respiratory Effort, Decreased Breath Sounds (mildly decreased in bilateral bases), Wheezing (occasional expiratory wheezes) Cardiovascular: Regular Rate Extremities: Normal Capillary Refill Skin: Warm, Dry Wound/Incisions: Dressing Dry and Intact, No Drainage, Erythema Neurological: No New Focal Deficit Psy/Mental Status: Alert, Normal Affect, Normal Mood Sepsis Event Note - Evaluation Sepsis Screening Result: No Definite Risk - Focused Exam Vital Signs: Vital Signs Temp Pulse Resp BP Pulse Ox 10/15/19 11:20 37.0 C 74 18 130/81 94 L Date Exam was Performed: 10/15/19 Time Exam was Performed: 17:51 - Problem List & Annotations (1) Weakness SNOMED Code(s): 79263139 Code(s): R53.1 - WEAKNESS Status: Acute Priority: High Current Visit: No - Problem List Review Problem List Initiated/Reviewed/Updated: Yes - My Orders Last 24 Hours: My Active Orders 10/15/19 17:43 Tuberculin, PPD [AplisoL] 5 unit IDERM ONETIME ONE 10/15/19 17:50 Albuterol/Ipratropium [DuoNeb 3.0-0.5 MG/3 ML] 3 ml INH Q4H PRN 10/15/19 20:00 Budesonide/Formoterol Fumarate [Symbicort 160-4.5 Mcg Inhaler] 2 puff IH BID Desvenlafaxine [Pristiq] 100 mg PO QPM Tamsulosin HCl [Flomax] 0.4 mg PO QPM 10/16/19 07:00 Levothyroxine [Levothyroxine] 150 mcg PO ACBREAKFAST 10/16/19 08:00 Aspirin [Halfprin] 81 mg PO DAILY - Assessment Assessment:: Weakness COPD Pneumonia-resolving - Plan Plan:: Continue to work with PT and OT on strengthening. Change to Swing Bed status today. DC IV medications; start oral augmentin.
[2019-10-15] MEDS: Albuterol/Ipratropium 3.0-0.5 MG/3 ML Neb Soln INH PRN ×2 (18:31→19:39)
[2019-10-15] MEDS: Desvenlafaxine 50 MG Tab.ER PO SCH (19:38)
[2019-10-15] MEDS: Amoxicillin/Clavulanate K 875-125 MG Tab PO SCH (19:39)
[2019-10-15] MEDS: Tamsulosin 0.4 MG Cap.ER PO SCH (19:39)
[2019-10-15] MEDS ORDERED: LORazepam 1 MG Tab PO PRN (19:41)
[2019-10-15] MEDS: Formoterol/Mometasone 200-5 MCG 8.8 GM Inhaler IH SCH (20:04)
[2019-10-16] MEDS: Levothyroxine 150 MCG Tab PO SCH (07:28)
[2019-10-16] MEDS: Amoxicillin/Clavulanate K 875-125 MG Tab PO SCH ×2 (07:28→19:46)
[2019-10-16] MEDS: Aspirin 81 MG Tab.EC PO SCH (07:29)
[2019-10-16] MEDS: Formoterol/Mometasone 200-5 MCG 8.8 GM Inhaler IH SCH ×2 (08:30→19:46)
[2019-10-16] MEDS ORDERED: Acetaminophen 325 MG Tab PO PRN (08:44)
[2019-10-16] MEDS: Albuterol/Ipratropium 3.0-0.5 MG/3 ML Neb Soln INH PRN (15:56)
[2019-10-16] MEDS ORDERED: LORazepam 1 MG Tab PO PRN (16:02)
[2019-10-16] MEDS: predniSONE 20 MG Tab PO SCH (16:16)
[2019-10-16] MEDS: Tamsulosin 0.4 MG Cap.ER PO SCH (19:46)
[2019-10-16] MEDS: Desvenlafaxine 50 MG Tab.ER PO SCH (19:46)
[2019-10-17] MEDS: Albuterol/Ipratropium 3.0-0.5 MG/3 ML Neb Soln INH PRN (04:15)
[2019-10-17] MEDS: predniSONE 20 MG Tab PO SCH (07:25)
[2019-10-17] MEDS: Levothyroxine 150 MCG Tab PO SCH (07:26)
[2019-10-17] MEDS: Amoxicillin/Clavulanate K 875-125 MG Tab PO SCH (07:26)
[2019-10-17] MEDS: Formoterol/Mometasone 200-5 MCG 8.8 GM Inhaler IH SCH (07:26)
[2019-10-17] MEDS: Aspirin 81 MG Tab.EC PO SCH (07:26)
[2019-10-17 08:32] VITALS: BP 119/82; PULSE 57
--- NOTE | 2019-10-20 13:57 | PCM.DCSUM1 ---
Discharge Summary - Hospital Course Free Text/Narrative:: Admitted for weakness, respiratory distress, pneumonia. While inpatient one blood culture grew e.coli. He did well while inpatient demonstrating improvement daily. His stay was changed to swing bed to continue PT and OT prior to discharge. Diagnosis: Stroke: No - Discharge Data Discharge Date: 10/18/19 Discharge Disposition: Home, Self-Care 01 Condition: Good - Referral to Home Health Primary Care Physician: PCP None - Discharge Diagnosis/Problem(s) (1) Weakness SNOMED Code(s): 86130605 ICD Code: R53.1 - WEAKNESS Status: Acute Priority: High - Patient Summary/Data Consults: Consultations 10/16/19 16:15 PT Evaluation and Treatment [CONS] Routine Please Evaluate and Treat. PT Reason for Consult: Strengthening Special Instructions: The original order for PT on [facility] account was place on the patient's acute chart. This query below is only for informational purposes and is not editable. 10/16/19 16:17 OT Evaluation and Treatment [CONS] Routine Please Evaluate and Treat. OT Reason for Consult: ADL's Special Instructions: The original order for OT during [facility] was placed in patient's acute chart. This query below is only for informational purposes and is not editable. - Patient Instructions Diet: Regular Diet as Tolerated Showering/Bathing: May Shower Notify Provider of: Fever - Discharge Plan *PRESCRIPTION DRUG MONITORING PROGRAM REVIEWED*: No Home Medications: Home Meds Desvenlafaxine [Pristiq] 100 mg PO QPM 06/01/16 [History] Tamsulosin HCl [Flomax] 0.4 mg PO QPM 06/01/16 [History] Aspirin [Halfprin] 81 mg PO DAILY 06/21/17 [History] Levothyroxine 150 mcg PO ACBREAKFAST tablet 06/24/17 [Rx] Budesonide/Formoterol Fumarate [Symbicort 160-4.5 Mcg Inhaler] 2 puff IH BID [History] Albuterol/Ipratropium [DuoNeb 3.0-0.5 MG/3 ML] 3 ml INH Q4H PRN #60 neb [Rx] Oxygen Therapy Mode: Nasal Cannula Oxygen Flow Rate (L/min): 3 Maintain SPO2% less than: 95 Maintain SpO2% greater than: 90 Patient Handouts: Amoxicillin; Clavulanic Acid tablets, Shortness of Breath, Adult, [id number], Prednisone tablets - Discharge Summary/Plan Comment DC Time >30 min.: Yes - General Info Date of Service: 10/17/19 Admission Dx/Problem (Free Text: Weakness-improving Pneumonia-improved Sepsis-resolved Exacerbation COPD Subjective Update: Patient continues to improve from a respiratory standpoint with improving air entry and decreased wheezing. He continues to have intermittent productive cough that improves with a neb. He denies any pain. He has not had a fever and VSS. Appetite is improving. He does remain rather week and requires assistance with ADLs, transfers, and walking. He continues to work with PT and OT who believe he could benefit from additional therapy. Functional Status: Reports: Pain Controlled - Review of Systems General: Reports: No Symptoms HEENT: Reports: No Symptoms Pulmonary: Reports: Shortness of Breath, Cough, Wheezing Cardiovascular: Reports: No Symptoms Gastrointestinal: Reports: No Symptoms Genitourinary: Reports: No Symptoms Musculoskeletal: Reports: No Symptoms Skin: Reports: No Symptoms Neurological: Reports: No Symptoms - Patient Data Vitals - Most Recent: Last Vital Signs Temp 37.0 C 10/17/19 08:00 Pulse 57 L 10/17/19 08:00 Resp 18 10/17/19 08:00 BP 119/82 10/17/19 08:00 Pulse Ox 97 10/17/19 08:00 Weight - Most Recent: 83.915 kg Med Orders - Current: Current Medications Discontinued Medications Acetaminophen (Tylenol) 650 mg PO Q4H PRN PRN Reason: Pain Last Admin: 10/16/19 14:46 Dose: 650 mg Albuterol/Ipratropium (Duoneb 3.0-0.5 Mg/3 Ml) 3 ml INH Q4H PRN PRN Reason: WHEEZING Last Admin: 10/17/19 04:15 Dose: 3 ml Amoxicillin/Clavulanate Potassium (Augmentin 875 Mg/125 Mg) 1 tab PO Q12HR [facility] Last Admin: 10/17/19 07:26 Dose: 1 tab Aspirin (Halfprin) 81 mg PO DAILY [facility] Last Admin: 10/17/19 07:26 Dose: 81 mg Desvenlafaxine Succinate (Pristiq) 100 mg PO QPM [facility] Last Admin: 10/16/19 19:46 Dose: 100 mg Levothyroxine Sodium (Levothyroxine) 150 mcg PO ACBREAKFAST [facility] Last Admin: 10/17/19 07:26 Dose: 150 mcg Lorazepam (Ativan) 1 mg PO BEDTIME PRN PRN Reason: Sleep Last Admin: 10/15/19 20:02 Dose: 1 mg Lorazepam (Ativan) 1 mg PO Q4H PRN PRN Reason: Agitation Last Admin: 10/16/19 16:16 Dose: 1 mg Mometasone Furoate/Formoterol Fumar (Dulera 200-5 Mcg) 0 puff IH BID [facility] Last Admin: 10/17/19 07:26 Dose: 2 puff Prednisone (Prednisone) 40 mg PO DAILY [facility] Stop: 10/20/19 16:15 Last Admin: 10/17/19 07:25 Dose: 40 mg Tamsulosin HCl (Flomax) 0.4 mg PO QPM [facility] Last Admin: 10/16/19 19:46 Dose: 0.4 mg Tuberculin PPD (Aplisol) 5 unit IDERM ONETIME ONE Stop: 10/15/19 17:44 Last Admin: 10/15/19 18:27 Dose: 5 unit - Exam Quality Assessment: Reports: Supplemental Oxygen (as needed to maintain saturation) General: Reports: Alert, Oriented, Cooperative, No Acute Distress HEENT: Reports: Pupils Equal, Pupils Reactive, EOMI, Mucous Membr. Moist/[place] Neck: Reports: Supple Lungs: Reports: Decreased Breath Sounds (mild decrease in air entry bilateral baes), Rales (few bilateral bases), Wheezing (occasional expiratory bilaterally) GI/Abdominal Exam: Normal Bowel Sounds, Soft, Non-Tender, No Distention Extremities: Normal Capillary Refill Skin: Reports: Warm, Dry Wound/Incisions: Reports: Healing Well (right elbow skin tear from fall) Neurological: Reports: No New Focal Deficit, Other Psy/Mental Status: Reports: Alert, Normal Affect
== END 2019-10-17 14:30 | disposition home or self-care (01) | DRG 947 ==
LOC: LB.MS 10:44
PROVIDERS: ADMIT Nurse Practitioner; ATTEND Nurse Practitioner
DX: R53.1 Weakness (principal); J18.9 Pneumonia, unspecified organism; J44.0 Chronic obstructive pulmonary disease with (acute) lower respiratory infection; J44.1 Chronic obstructive pulmonary disease with (acute) exacerbation
CPT/HCPCS: 86580; 97110-GO; 97110-GP; 97530-GO; 97530-GP; A9270-GY; J7512; J7620-GY

== ENCOUNTER 2020-07-03 20:49 | Observation (INO) | payer MEDICARE ==
[2020-07-03] MEDS ORDERED: Albuterol/Ipratropium 3.0-0.5 MG/3 ML Neb Soln NEB STA (20:53)
--- NOTE | 2020-07-03 20:58 | EDM.PDOC ---
ED HPI GENERAL MEDICAL PROBLEM - General Chief Complaint: Respiratory Problem Stated Complaint: SOB Time Seen by Provider: 07/03/20 20:55 Source of Information: Reports: Patient History Limitations: Reports: No Limitations - History of Present Illness INITIAL COMMENTS - FREE TEXT/NARRATIVE: Patient here with a c/o progressive SOB for the last 3 days. h/o COPD, HTN and CHF. On chronic O2 use at 3 lit per NC at the longterm. Denies a CP or fever, but reports that he has been more SOB than usual and needing more nebs than his baseline. Reports that his cough is chronic due to a chronic emphysema. Was started on prednisone 5 days ago for COPD exacerbation. Onset: Gradual Duration: Day(s): (3) Location: Reports: Chest - Related Data Allergies Allergy/AdvReac Type Severity Reaction Status Date / Time No Known Allergies Allergy Verified 10/11/19 13:21 Home Meds: Home Meds Desvenlafaxine [Pristiq] 100 mg PO QPM 06/01/16 [History] Tamsulosin HCl [Flomax] 0.4 mg PO QPM 06/01/16 [History] Aspirin [Halfprin] 81 mg PO DAILY 06/21/17 [History] Levothyroxine 150 mcg PO ACBREAKFAST tablet 06/24/17 [Rx] Budesonide/Formoterol Fumarate [Symbicort 160-4.5 Mcg Inhaler] 2 puff IH BID 10/03/17 [History] Albuterol/Ipratropium [DuoNeb 3.0-0.5 MG/3 ML] 3 ml INH Q4H PRN #60 neb 02/22/18 [Rx] Past Medical History - Past Health History Medical/Surgical History: Denies Medical/Surgical History HEENT History: Reports: Impaired Vision Other HEENT History: glasses only at computer Cardiovascular History: Reports: High Cholesterol, Hypertension Respiratory History: Reports: COPD Gastrointestinal History: Reports: None Genitourinary History: Reports: BPH Musculoskeletal History: Reports: Other (See Below) Other Musculoskeletal History: weakness in leg muscles Psychiatric History: Reports: Anxiety, Depression Endocrine/Metabolic History: Reports: Hypothyroidism - Infectious Disease History Infectious Disease History: Reports: C-Difficile, Chicken Pox Other Infectious Disease History: Doesn't know - Past Surgical History HEENT Surgical History: Reports: None Cardiovascular Surgical History: Reports: None Respiratory Surgical History: Reports: None GI Surgical History: Reports: Appendectomy, Hernia, Abdominal Male Surgical History: Reports: None Musculoskeletal Surgical History: Reports: None Social & Family History - Family History Family Medical History: No Pertinent Family History Neurological: Reports: None Psychiatric: Reports: None Endocrine/Metabolic: Reports: None Hematologic: Reports: None Immunologic: Reports: None Dermatologic: Reports: None Oncologic: Reports: None - Caffeine Use Caffeine Use: Reports: Coffee ED ROS GENERAL - Review of Systems Review Of Systems: See Below Constitutional: Reports: No Symptoms HEENT: Reports: No Symptoms Respiratory: Reports: Shortness of Breath, Wheezing Cardiovascular: Denies: Chest Pain GI/Abdominal: Reports: No Symptoms Musculoskeletal: Reports: No Symptoms ED EXAM, GENERAL - Physical Exam Exam: See Below Exam Limited By: No Limitations General Appearance: Alert, Mild Distress Respiratory/Chest: Respiratory Distress, Rales, Wheezing, Accessory Muscle Use, Retractions, Prolonged Expiration Cardiovascular: Regular Rate, Rhythm GI/Abdominal: Normal Bowel Sounds, Soft, Non-Tender (Male) Exam: Rash Extremities: Other (bl LEs edema) Neurological: No Motor/Sensory Deficits Course - Orders/Labs/Meds Orders: Active Orders 24 hr Category Date Time Status Admission Diagnosis [ADT] Routine ADT 07/03/20 22:31 Ordered Patient Status [ADT] Routine ADT 07/03/20 22:31 Ordered EKG Documentation Completion [RC] ASDIRECTED Care 07/03/20 20:54 Active RT Aerosol Therapy [RC] ASDIRECTED Care 07/03/20 20:53 Active Chest 1V Frontal [CR] Stat Exams 07/03/20 20:53 Taken Labs: Laboratory Tests 07/03/20 07/03/20 07/03/20 Range/Units 21:10 21:10 22:00 WBC 8.9 D (4.0-11.0) K/uL RBC 4.06 L (4.50-6.50) M/uL Hgb 12.9 L (13.0-18.0) g/dL Hct 40.1 (40.0-54.0) % MCV 99 H (76-96) fL MCH 31.8 (27.0-32.0) pg MCHC 32.2 (31.0-35.0) g/dL RDW 14.1 (11.0-16.0) % Plt Count 243 (150-400) K/uL MPV 9.9 (6.0-10.0) fL Neut % (Auto) 74.9 H (45.0-70.0) % Lymph % (Auto) 12.9 L (20.0-40.0) % [place] % (Auto) 9.8 (3.0-10.0) % Eos % (Auto) 2.1 (1.0-5.0) % Baso % (Auto) 0.3 (0.0-0.5) % Neut # (Auto) 6.68 (2.00-7.50) K/uL Lymph # (Auto) 1.15 L (1.50-4.00) K/uL [place] # (Auto) 0.87 H (0.20-0.80) K/uL Eos # (Auto) 0.19 (0.04-0.40) K/uL Baso # (Auto) 0.03 (0.02-0.10) K/uL Sodium 141 (136-145) mmol/L Potassium 3.8 (3.5-5.1) mmol/L Chloride 104 (98-107) mmol/L Carbon Dioxide 29.7 (21.0-32.0) mmol/L Anion Gap 11.1 (5.0-15.0) mmol/L BUN 12 D (8-26) mg/dL Creatinine 0.85 D (0.70-1.30) mg/dL Est Cr Clr Drug Dosing TNP Estimated GFR (MDRD) > 60 (>60) MLS/MIN BUN/Creatinine Ratio 14.1 (6-25) Glucose 99 D (74-100) mg/dL Calcium 8.5 (8.5-10.1) mg/dL Troponin I < 0.017 (0.000-0.060) ng/mL B-Natriuretic Peptide 142 D (0-450) pg/mL SARS CoV-2 RNA Rapid ANTONINA Negative Meds: Medications Discontinued Medications Generic Name Dose Route Start Last Admin Trade Name Freq PRN Reason Stop Dose Admin Albuterol/Ipratropium 3 ml 07/03/20 20:53 Duoneb 3.0-0.5 Mg/3 Ml NEB 07/03/20 20:54 NOW STA Methylprednisolone Sodium Succinate 40 mg 07/03/20 21:38 Solu-Medrol IVPUSH 02/20/21 21:39 ONETIME ONE - Re-Assessments/Exams Free Text/Narrative Re-Assessment/Exam: upon arrival, O2 was in mid 80's on 4 lit O2 NC, improved to 95% with non-rebreather and 100% O2. IV line was started. EKG and labs were ordered. No e/o acute ischemic changes on labs and EKG. CXR showed changes c/w COPD exacerbation, no infiltrates were detected. duoneb was given as well as IV solumedrol - Patient reports some improvent in breathing effort by 70%. Departure - Departure Time of Disposition: 22:39 Disposition: Refer to Observation Condition: Good Clinical Impression: Rash of groin COPD (chronic obstructive pulmonary disease) Qualifiers: COPD type: COPD with acute exacerbation Qualified Code(s): J44.1 - Chronic obstructive pulmonary disease with (acute) exacerbation - Discharge Information *PRESCRIPTION DRUG MONITORING PROGRAM REVIEWED*: Not Applicable *COPY OF PRESCRIPTION DRUG MONITORING REPORT IN PATIENT ARTEM: Not Applicable Forms: ED Department Discharge - Problem List & Annotations (1) COPD exacerbation SNOMED Code(s): 513175334 Code(s): J44.1 - CHRONIC OBSTRUCTIVE PULMONARY DISEASE W (ACUTE) EXACERBATION Status: Resolved Priority: High Current Visit: No Annotation/Comment:: 10/03/17 - Chronic obstructive pulomnary disease exacerbation 07/14/17 - chronic obstructive pulmonary disease (2) Rash of groin SNOMED Code(s): 404846164, 623877475 Code(s): R21 - RASH AND OTHER NONSPECIFIC SKIN ERUPTION Status: Acute Priority: Medium Current Visit: Yes - Problem List Review Problem List Initiated/Reviewed/Updated: Yes - My Orders Last 24 Hours: My Active Orders 07/03/20 20:53 RT Aerosol Therapy [RC] ASDIRECTED Chest 1V Frontal [CR] Stat 07/03/20 20:54 EKG Documentation Completion [RC] ASDIRECTED 07/03/20 22:31 Admission Diagnosis [ADT] Routine Patient Status [ADT] Routine - Assessment/Plan Last 24 Hours: My Active Orders 07/03/20 20:53 RT Aerosol Therapy [RC] ASDIRECTED Chest 1V Frontal [CR] Stat 07/03/20 20:54 EKG Documentation Completion [RC] ASDIRECTED 07/03/20 22:31 Admission Diagnosis [ADT] Routine Patient Status [ADT] Routine Plan: - admission to obs for treatment and management of acute on chronic COPD exacerbation duoneb q6 hrs IV solumedrol q6hr O2 supplementation for groin rash: nystatin powder and local cortisone ointment resume home meds as before
[2020-07-03] MEDS ORDERED: Sodium Chloride 0.9% 10 ML Syringe FLUSH PRN (21:00)
[2020-07-03] MEDS ORDERED: methylPREDNISolone Sodium Succinate 40 MG/1 ML SDV IVPUSH ONE (21:38)
[2020-07-04] MEDS: Albuterol/Ipratropium 3.0-0.5 MG/3 ML Neb Soln NEB PRN ×2 (01:35→05:10)
[2020-07-04] MEDS: Levothyroxine 150 MCG Tab PO SCH (06:50)
[2020-07-04] MEDS: Aspirin 81 MG Tab.EC PO SCH (07:21)
[2020-07-04] MEDS: Albuterol/Ipratropium 3.0-0.5 MG/3 ML Neb Soln INH PRN ×2 (09:03→20:04)
[2020-07-04] MEDS ORDERED: Nystatin Topical Powder 15 GM Bottle ONE (09:29)
--- NOTE | 2020-07-04 13:34 | PCM.HP.2 ---
H&P History of Present Illness - General Date of Service: 07/04/20 Admit Problem/Dx: Admission Diagnosis/Problem Admission Diagnosis/Problem COPD with acute lower respiratory infection Source of Information: Patient History Limitations: Reports: No Limitations - History of Present Illness Initial Comments - Free Text/Narative: Patient here with a c/o progressive SOB for the last 3 days. was seen and evaluated in the ER - diagnosed with Acute COPD exacerbation and Respiratory Hypoxia. Failed outpatient therapy. Reports that his cough is chronic due to a chronic emphysema. Was started on prednisone 5 days ago for COPD exacerbation - but no improvement h/o COPD, HTN and CHF. On chronic O2 use at 3 lit per NC at the halfway. was admitted to the floor - nebs were scheduled, also, IV solumedrol was given. - Related Data Allergies/Adverse Reactions: Allergies Allergy/AdvReac Type Severity Reaction Status Date / Time No Known Allergies Allergy Verified 10/11/19 13:21 Home Medications: Home Meds Desvenlafaxine [Pristiq] 100 mg PO QPM 06/01/16 [History] Tamsulosin HCl [Flomax] 0.4 mg PO QPM 06/01/16 [History] Aspirin [Halfprin] 81 mg PO DAILY 06/21/17 [History] Levothyroxine 150 mcg PO ACBREAKFAST tablet 06/24/17 [Rx] Budesonide/Formoterol Fumarate [Symbicort 160-4.5 Mcg Inhaler] 2 puff IH BID 10/03/17 [History] Albuterol/Ipratropium [DuoNeb 3.0-0.5 MG/3 ML] 3 ml INH Q4H PRN #60 neb 02/22/18 [Rx] Past Medical History - Past Health History Medical/Surgical History: Denies Medical/Surgical History HEENT History: Reports: Impaired Vision Other HEENT History: glasses only at computer Cardiovascular History: Reports: High Cholesterol, Hypertension Respiratory History: Reports: COPD Gastrointestinal History: Reports: None Genitourinary History: Reports: BPH Musculoskeletal History: Reports: Other (See Below) Other Musculoskeletal History: weakness in leg muscles Psychiatric History: Reports: Anxiety, Depression Endocrine/Metabolic History: Reports: Hypothyroidism - Infectious Disease History Infectious Disease History: Reports: C-Difficile, Chicken Pox Other Infectious Disease History: Doesn't know - Past Surgical History HEENT Surgical History: Reports: None Cardiovascular Surgical History: Reports: None Respiratory Surgical History: Reports: None GI Surgical History: Reports: Appendectomy, Hernia, Abdominal Male Surgical History: Reports: None Musculoskeletal Surgical History: Reports: None Social & Family History - Family History Family Medical History: No Pertinent Family History Neurological: Reports: None Psychiatric: Reports: None Endocrine/Metabolic: Reports: None Hematologic: Reports: None Immunologic: Reports: None Dermatologic: Reports: None Oncologic: Reports: None - Tobacco Use Tobacco Use Status *Q: Unknown Ever Used Tobacco - Caffeine Use Caffeine Use: Reports: Coffee H&P Review of Systems - Review of Systems: Review Of Systems: See Below General: Reports: No Symptoms HEENT: Reports: No Symptoms Pulmonary: Reports: Shortness of Breath Cardiovascular: Reports: Dyspnea on Exertion, Edema Gastrointestinal: Reports: No Symptoms Genitourinary: Reports: No Symptoms Musculoskeletal: Reports: No Symptoms Skin: Reports: No Symptoms Psychiatric: Reports: No Symptoms Exam - Exam Exam: See Below - Vital Signs Vital Signs: Last Vital Signs Temp 37.7 C 07/03/20 20:49 Pulse 77 07/04/20 03:27 Resp 20 07/04/20 11:00 BP 103/81 07/04/20 03:27 Pulse Ox 93 L 07/04/20 11:00 - Exam Quality Assessment: Supplemental Oxygen General: Alert, Oriented, Cooperative HEENT: PERRLA Lungs: Decreased Breath Sounds, Wheezing Cardiovascular: Regular Rate GI/Abdominal Exam: Normal Bowel Sounds Extremities: Normal Inspection - Patient Data Lab Results Last 24 hrs: Laboratory Results - last 24 hr 07/03/20 07/03/20 07/03/20 Range/Units 21:10 21:10 22:00 WBC 8.9 D (4.0-11.0) K/uL RBC 4.06 L (4.50-6.50) M/uL Hgb 12.9 L (13.0-18.0) g/dL Hct 40.1 (40.0-54.0) % MCV 99 H (76-96) fL MCH 31.8 (27.0-32.0) pg MCHC 32.2 (31.0-35.0) g/dL RDW 14.1 (11.0-16.0) % Plt Count 243 (150-400) K/uL MPV 9.9 (6.0-10.0) fL Neut % (Auto) 74.9 H (45.0-70.0) % Lymph % (Auto) 12.9 L (20.0-40.0) % [place] % (Auto) 9.8 (3.0-10.0) % Eos % (Auto) 2.1 (1.0-5.0) % Baso % (Auto) 0.3 (0.0-0.5) % Neut # (Auto) 6.68 (2.00-7.50) K/uL Lymph # (Auto) 1.15 L (1.50-4.00) K/uL [place] # (Auto) 0.87 H (0.20-0.80) K/uL Eos # (Auto) 0.19 (0.04-0.40) K/uL Baso # (Auto) 0.03 (0.02-0.10) K/uL Sodium 141 (136-145) mmol/L Potassium 3.8 (3.5-5.1) mmol/L Chloride 104 (98-107) mmol/L Carbon Dioxide 29.7 (21.0-32.0) mmol/L Anion Gap 11.1 (5.0-15.0) mmol/L BUN 12 D (8-26) mg/dL Creatinine 0.85 D (0.70-1.30) mg/dL Est Cr Clr Drug Dosing TNP Estimated GFR (MDRD) > 60 (>60) MLS/MIN BUN/Creatinine Ratio 14.1 (6-25) Glucose 99 D (74-100) mg/dL Calcium 8.5 (8.5-10.1) mg/dL Troponin I < 0.017 (0.000-0.060) ng/mL B-Natriuretic Peptide 142 D (0-450) pg/mL SARS CoV-2 RNA Rapid ANTONINA Negative Result Diagrams: 07/03/20 21:10 07/03/20 21:10 Sepsis Event Note - Evaluation Sepsis Screening Result: No Definite Risk - Focused Exam Vital Signs: Vital Signs Pulse Resp BP Pulse Ox 07/04/20 11:00 20 93 L 07/04/20 03:27 77 20 103/81 93 L - Problem List (1) COPD exacerbation SNOMED Code(s): 929823807 ICD Code: J44.1 - CHRONIC OBSTRUCTIVE PULMONARY DISEASE W (ACUTE) EXACERBA TION Status: Acute Priority: High Current Visit: No Problem Details: 10/03/17 - Chronic obstructive pulomnary disease exacerbation 07/14/17 - chronic obstructive pulmonary disease (2) Rash of groin SNOMED Code(s): 953075186, 611513951 ICD Code: R21 - RASH AND OTHER NONSPECIFIC SKIN ERUPTION Status: Acute Priority: Medium Current Visit: Yes Problem List Initiated/Reviewed/Updated: Yes Orders Last 24hrs: Active Orders 24 hr Category Date Time Status Admission Diagnosis [ADT] Routine ADT 07/03/20 22:31 Active Patient Status [ADT] Routine ADT 07/03/20 22:31 Active EKG Documentation Completion [RC] ASDIRECTED Care 07/03/20 20:54 Active Oxygen Therapy [RC] 2300 Care 07/03/20 23:27 Active RT Aerosol Therapy [RC] ASDIRECTED Care 07/03/20 20:53 Active RT Aerosol Therapy [RC] ASDIRECTED Care 07/03/20 23:28 Active RT Aerosol Therapy [RC] ASDIRECTED Care 07/03/20 23:29 Active VTE/DVT Education [RC] Per Unit Routine Care 07/03/20 23:27 Active Vital Signs [RC] Q4H Care 07/03/20 23:27 Active Regular Diet [DIET] Diet 07/04/20 Breakfast Ordered Chest 1V Frontal [CR] Stat Exams 07/03/20 20:53 Taken Albuterol/Ipratropium [DuoNeb 3.0-0.5 MG/3 ML] Med 07/03/20 23:28 Active 3 ml INH Q4H PRN Albuterol/Ipratropium [DuoNeb 3.0-0.5 MG/3 ML] Med 07/03/20 23:28 Active 3 ml NEB Q4H PRN Aspirin [Halfprin] Med 07/04/20 08:00 Active 81 mg PO DAILY Desvenlafaxine [Pristiq] Med 07/04/20 20:00 Active 100 mg PO QPM Levothyroxine Med 07/04/20 07:00 Active 150 mcg PO ACBREAKFAST Sodium Chloride 0.9% [Saline Flush] Med 07/03/20 21:00 Active 10 ml FLUSH ASDIRECTED PRN methylPREDNISolone Sod Succ [Solu-MEDROL] Med 07/04/20 12:00 Active 40 mg IVPUSH Q6H Peripheral IV Insertion Adult [OM.PC] Routine Oth 07/03/20 21:00 Ordered Code Status [Resuscitation Status] Routine Resus Stat 07/04/20 06:54 Ordered Medication Orders Albuterol/Ipratropium (Duoneb 3.0-0.5 Mg/3 Ml) 3 ml INH Q4H PRN PRN Reason: Wheezing Last Admin: 07/04/20 09:03 Dose: 3 ml Documented by: LUIS Albuterol/Ipratropium (Duoneb 3.0-0.5 Mg/3 Ml) 3 ml NEB Q4H PRN PRN Reason: Wheezing Last Admin: 07/04/20 05:10 Dose: 3 ml Documented by: Admin: 07/04/20 01:35 Dose: 3 ml Documented by: JEREMY Aspirin (Halfprin) 81 mg PO DAILY [place] Last Admin: 07/04/20 07:21 Dose: 81 mg Documented by: JEREMY Desvenlafaxine Succinate (Pristiq) 100 mg PO QPM [place] Levothyroxine Sodium (Levothyroxine) 150 mcg PO ACBREAKFAST [place] Last Admin: 07/04/20 06:50 Dose: 150 mcg Documented by: JEREMY Methylprednisolone Sodium Succinate (Solu-Medrol) 40 mg IVPUSH Q6H [place] Sodium Chloride (Saline Flush) 10 ml FLUSH ASDIRECTED PRN PRN Reason: Keep Vein Open Assessment/Plan Comment:: 1- Acute COPD exacerbation: duoneb q4hr, IV solumedrol 40mg q6hr, resume home meds. 2- acute hypoxia: resume O2 supplementation. Goal to wean down to baseline 3-4 lit O2 NC. 3- groin yeast infection: starting nystatin powder 4- resume home meds as before - possible d/c back home by tomorrow - Mortality Measure Prognosis:: Good
[2020-07-04] MEDS: methylPREDNISolone Sodium Succinate 40 MG/1 ML SDV IVPUSH SCH ×2 (14:00→18:24)
[2020-07-04] MEDS: Desvenlafaxine 50 MG Tab.ER PO SCH (20:04)
[2020-07-04] MEDS: Nystatin Topical Powder 15 GM Bottle TOP SCH (20:18)
[2020-07-05] MEDS: methylPREDNISolone Sodium Succinate 40 MG/1 ML SDV IVPUSH SCH ×5 (00:17→23:51)
[2020-07-05] MEDS: Albuterol/Ipratropium 3.0-0.5 MG/3 ML Neb Soln INH PRN ×4 (03:24→23:51)
[2020-07-05] MEDS: Levothyroxine 150 MCG Tab PO SCH (06:05)
[2020-07-05] MEDS: Aspirin 81 MG Tab.EC PO SCH (08:00)
--- NOTE | 2020-07-05 08:32 | CR ---
Date of Service: 07/03/20 Clinical Data: SOB AP CHEST: Comparison is made to a prior AP and lateral chest dated 05/26/20. The heart size is stable. There is calcification of the aortic arch. The pulmonary vasculature does appear to be more prominent than on the prior exam with some cephalization of flow suggesting pulmonary venous congestion. 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 There are poorly defined ground-glass opacities in both mid lungs and in the left lower lung. Pneumonia should be considered. No pneumothorax. No pleural effusions. [id number] MTDD
[2020-07-05] MEDS ORDERED: Furosemide 40 MG Tab PO ONE (09:38)
--- NOTE | 2020-07-05 11:10 | PCM.PN ---
- General Info Date of Service: 07/05/20 Admission Dx/Problem (Free Text): Admission Diagnosis/Problem Admission Diagnosis/Problem COPD with acute lower respiratory infection Subjective Update: reports that breathing has been improving and able to go to the restroom with less exertions than before Functional Status: Reports: Pain Controlled, Tolerating Diet - Review of Systems General: Reports: No Symptoms HEENT: Reports: No Symptoms Pulmonary: Reports: Shortness of Breath, Wheezing Cardiovascular: Reports: Dyspnea on Exertion. Denies: Chest Pain Gastrointestinal: Reports: No Symptoms Genitourinary: Reports: No Symptoms Musculoskeletal: Reports: No Symptoms Skin: Reports: No Symptoms Neurological: Reports: No Symptoms Psychiatric: Reports: No Symptoms - Patient Data Vitals - Most Recent: Last Vital Signs Temp 36.9 C 07/05/20 08:00 Pulse 74 07/05/20 08:00 Resp 20 07/05/20 08:00 BP 139/90 07/05/20 08:00 Pulse Ox 95 07/05/20 08:00 Weight - Most Recent: 83.915 kg Lab Results Last 24 Hours: Laboratory Results - last 24 hr 07/05/20 07/05/20 Range/Units 09:39 09:50 WBC 8.7 (4.0-11.0) K/uL RBC 4.24 L (4.50-6.50) M/uL Hgb 13.5 (13.0-18.0) g/dL Hct 41.4 (40.0-54.0) % MCV 98 H (76-96) fL MCH 31.8 (27.0-32.0) pg MCHC 32.6 (31.0-35.0) g/dL RDW 13.7 (11.0-16.0) % Plt Count 295 D (150-400) K/uL MPV 9.9 (6.0-10.0) fL Sodium 145 (136-145) mmol/L Potassium 4.1 (3.5-5.1) mmol/L Chloride 106 (98-107) mmol/L Carbon Dioxide 28.7 (21.0-32.0) mmol/L Anion Gap 14.4 (5.0-15.0) mmol/L BUN 19 D (8-26) mg/dL Creatinine 0.90 (0.70-1.30) mg/dL Est Cr Clr Drug Dosing 77.68 mL/min Estimated GFR (MDRD) > 60 (>60) MLS/MIN BUN/Creatinine Ratio 21.1 (6-25) Glucose 131 H D (74-100) mg/dL Calcium 8.8 (8.5-10.1) mg/dL Med Orders - Current: Current Medications Albuterol/Ipratropium (Duoneb 3.0-0.5 Mg/3 Ml) 3 ml INH Q4H PRN PRN Reason: Wheezing Last Admin: 07/05/20 03:24 Dose: 3 ml Documented by: Albuterol/Ipratropium (Duoneb 3.0-0.5 Mg/3 Ml) 3 ml NEB Q4H PRN PRN Reason: Wheezing Last Admin: 07/04/20 05:10 Dose: 3 ml Documented by: Aspirin (Halfprin) 81 mg PO DAILY [facility] Last Admin: 07/05/20 08:00 Dose: 81 mg Documented by: Desvenlafaxine Succinate (Pristiq) 100 mg PO QPM [facility] Last Admin: 07/04/20 20:04 Dose: 100 mg Documented by: Levothyroxine Sodium (Levothyroxine) 150 mcg PO ACBREAKFAST [facility] Last Admin: 07/05/20 06:05 Dose: 150 mcg Documented by: Methylprednisolone Sodium Succinate (Solu-Medrol) 40 mg IVPUSH Q6H [facility] Last Admin: 07/05/20 06:04 Dose: 40 mg Documented by: Nystatin (Nystop) 0 gm TOP BID [facility] Last Admin: 07/04/20 20:18 Dose: 1 applic Documented by: Sodium Chloride (Saline Flush) 10 ml FLUSH ASDIRECTED PRN PRN Reason: Keep Vein Open Discontinued Medications Albuterol/Ipratropium (Duoneb 3.0-0.5 Mg/3 Ml) 3 ml NEB NOW STA Stop: 07/03/20 20:54 Last Admin: 07/03/20 20:50 Dose: 3 ml Documented by: Furosemide (Lasix) 40 mg PO ONETIME ONE Stop: 07/05/20 09:39 Methylprednisolone Sodium Succinate (Solu-Medrol) 40 mg IVPUSH ONETIME ONE Stop: 07/03/20 21:39 Last Admin: 07/03/20 22:00 Dose: 40 mg Documented by: Nystatin (Nystop) Confirm Administered Dose 15 gm .ROUTE .STK-MED ONE Stop: 07/04/20 09:30 Last Admin: 07/04/20 09:30 Dose: 1 applic Documented by: - Exam Quality Assessment: Supplemental Oxygen General: Alert, Oriented, Cooperative, No Acute Distress Neck: Supple Lungs: Other (mild b/l end exp wheezes) Cardiovascular: Regular Rate, Regular Rhythm GI/Abdominal Exam: Normal Bowel Sounds, Soft, Non-Tender Extremities: Other (+ b/l LEs pitting edema +2) Neurological: No New Focal Deficit Psy/Mental Status: Alert, Normal Affect - Patient Data Lab Results Last 24 hrs: Laboratory Results - last 24 hr 07/05/20 07/05/20 Range/Units 09:39 09:50 WBC 8.7 (4.0-11.0) K/uL RBC 4.24 L (4.50-6.50) M/uL Hgb 13.5 (13.0-18.0) g/dL Hct 41.4 (40.0-54.0) % MCV 98 H (76-96) fL MCH 31.8 (27.0-32.0) pg MCHC 32.6 (31.0-35.0) g/dL RDW 13.7 (11.0-16.0) % Plt Count 295 D (150-400) K/uL MPV 9.9 (6.0-10.0) fL Sodium 145 (136-145) mmol/L Potassium 4.1 (3.5-5.1) mmol/L Chloride 106 (98-107) mmol/L Carbon Dioxide 28.7 (21.0-32.0) mmol/L Anion Gap 14.4 (5.0-15.0) mmol/L BUN 19 D (8-26) mg/dL Creatinine 0.90 (0.70-1.30) mg/dL Est Cr Clr Drug Dosing 77.68 mL/min Estimated GFR (MDRD) > 60 (>60) MLS/MIN BUN/Creatinine Ratio 21.1 (6-25) Glucose 131 H D (74-100) mg/dL Calcium 8.8 (8.5-10.1) mg/dL Result Diagrams: 07/05/20 09:50 07/05/20 09:39 Sepsis Event Note - Evaluation Sepsis Screening Result: No Definite Risk - Focused Exam Vital Signs: Vital Signs Temp Pulse Resp BP Pulse Ox 07/05/20 08:00 36.9 C 74 20 139/90 95 07/05/20 03:24 37.0 C 74 20 134/92 H 95 07/05/20 00:00 36.8 C 88 20 137/78 94 L - Problem List & Annotations (1) COPD exacerbation SNOMED Code(s): 685437866 Code(s): J44.1 - CHRONIC OBSTRUCTIVE PULMONARY DISEASE W (ACUTE) EXACERBATION Status: Acute Priority: High Current Visit: No Annotation/Comment:: 10/03/17 - Chronic obstructive pulomnary disease exacerbation 07/14/17 - chronic obstructive pulmonary disease (2) Rash of groin SNOMED Code(s): 132933534, 072666154 Code(s): R21 - RASH AND OTHER NONSPECIFIC SKIN ERUPTION Status: Acute Priority: Medium Current Visit: Yes - Problem List Review Problem List Initiated/Reviewed/Updated: Yes - My Orders Last 24 Hours: My Active Orders 07/04/20 12:00 methylPREDNISolone Sod Succ [Solu-MEDROL] 40 mg IVPUSH Q6H 07/04/20 20:00 Desvenlafaxine [Pristiq] 100 mg PO QPM 07/04/20 20:15 Nystatin [Nystop] 0 gm TOP BID 07/05/20 09:40 CULTURE MRSA SURVEY [] Routine - Plan Plan:: 1- Acute COPD exacerbation failed outpatient therapy: duoneb q4hr, IV solumedrol 40mg q6hr, resume home meds. will switch to PO prednisone before discharging him back to the CT. 2- acute hypoxia: resume O2 supplementation. Goal to wean down to baseline 3-4 lit O2 NC. 3- groin yeast infection: starting nystatin powder BID 4- resume home meds as before 5- LEs edema: will start lasix today, and check vitals, patient has a h/o dizziness. 40mg PO - given that patient still requiring IV medications, and given that he is being started on a diuretics today which can possible cause a drop in BP and exacerbate dizziness - decision was to keep the patient under observation for another 24 hr until it deemed he is responsive and safe to be d/cd back to [facility].
[2020-07-05] MEDS: Nystatin Topical Powder 15 GM Bottle TOP SCH ×2 (11:38→19:30)
[2020-07-05] MEDS ORDERED: busPIRone 10 MG Tab ONE (19:25)
[2020-07-05] MEDS: busPIRone 15 MG Tab PO SCH (19:26)
[2020-07-05] MEDS: Desvenlafaxine 50 MG Tab.ER PO SCH (19:26)
[2020-07-05] MEDS ORDERED: traZODone 50 MG Tab PO SCH (20:00)
[2020-07-06] MEDS: Albuterol/Ipratropium 3.0-0.5 MG/3 ML Neb Soln INH PRN ×2 (04:08→08:33)
[2020-07-06] MEDS: methylPREDNISolone Sodium Succinate 40 MG/1 ML SDV IVPUSH SCH (06:00)
[2020-07-06] MEDS: Levothyroxine 150 MCG Tab PO SCH (06:00)
[2020-07-06] MEDS ORDERED: busPIRone 10 MG Tab ONE (07:37)
[2020-07-06] MEDS: Aspirin 81 MG Tab.EC PO SCH (07:45)
[2020-07-06] MEDS: busPIRone 15 MG Tab PO SCH (07:45)
[2020-07-06] MEDS: Nystatin Topical Powder 15 GM Bottle TOP SCH (07:46)
[2020-07-06 08:35] VITALS: BP 141/93; PULSE 81
--- NOTE | 2020-07-06 10:08 | PCM.DCSUM1 ---
Discharge Summary - Hospital Course Brief History: Patient here with a c/o progressive SOB for the last 3 days. h/o COPD, HTN and CHF. On chronic O2 use at 3 lit per [facility] at the [facility]. was seen and evaluated in the ER - diagnosed with Acute COPD exacerbation and Respiratory Hypoxia. Failed outpatient therapy. Reports that his cough is chronic due to a chronic emphysema. It was also noted that patient has a significant LEs edema, despite a normal BNP. patient is also c/o groin rash that seems like a yeast infection Diagnosis: Stroke: No Modified [place] Scale: No Symptoms at All Modified [place] Scale Score: 0 - Discharge Data Discharge Date: 07/06/20 Discharge Disposition: DC/Tfer to Long-Term Care 63 Condition: Good - Referral to Home Health Primary Care Physician: PCP None - Discharge Diagnosis/Problem(s) (1) COPD exacerbation SNOMED Code(s): 075411157 ICD Code: J44.1 - CHRONIC OBSTRUCTIVE PULMONARY DISEASE W (ACUTE) EXACERBATION Status: Acute Priority: High Current Visit: No Problem Details: 10/03/17 - Chronic obstructive pulomnary disease exacerbation 07/14/17 - chronic obstructive pulmonary disease (2) Rash of groin SNOMED Code(s): 639042652, [id number] ICD Code: R21 - RASH AND OTHER NONSPECIFIC SKIN ERUPTION Status: Acute Priority: Medium Current Visit: Yes - Patient Summary/Data Hospital Course: 1- acute exacerbation of COPD - patient was started on scheduled nebs, IV solumedrol and O2 supplementations. He improved with therapy. O2 was weaned down to 3 lit. IV steroids was switched to PO. 2- LEs edema: was started on a small dose of lasix - which patient responded well to it by increasing UOP and some improvement in respiratory effort. 3- groin rash: improved with Nystatin powder Patient was d/cd back to the OR in an improved condition. recommend to check weight daily - notify provider if > 5 lbs also to resume prednisone and lasix as outpatient - Patient Instructions Diet: Heart Healthy Diet - Discharge Plan *PRESCRIPTION DRUG MONITORING PROGRAM REVIEWED*: Not Applicable *COPY OF PRESCRIPTION DRUG MONITORING REPORT IN PATIENT ARTEM: Not Applicable Prescriptions/Med Rec: Nystatin [Nystop] 0 gm TOP BID #1 bottle Home Medications: Home Meds Desvenlafaxine [Pristiq] 100 mg PO DAILY 06/01/16 [History] Tamsulosin HCl [Flomax] 0.4 mg PO DAILY 06/01/16 [History] Aspirin [Halfprin] 81 mg PO DAILY 06/21/17 [History] Levothyroxine 150 mcg PO ACBREAKFAST tablet 06/24/17 [Rx] Budesonide/Formoterol Fumarate [Symbicort 160-4.5 Mcg Inhaler] 2 puff IH BID 10/03/17 [History] Albuterol/Ipratropium [DuoNeb 3.0-0.5 MG/3 ML] 3 ml INH Q4H PRN #60 neb 02/22/18 [Rx] Albuterol Sulfate [Proair Hfa] 2 puff IH Q4H PRN 07/04/20 [History] Fluticasone Propionate [Flonase] 1 spray NASBOTH DAILY 07/04/20 [History] Ibuprofen/Diphenhydramine Cit [Advil Pm Caplet] 2 each PO BEDTIME 07/04/20 [History] Mag Hydrox/Aluminum Hyd/Simeth [Alum-Mag Hydroxide-Simeth Susp] 30 ml PO Q4H PRN 07/04/20 [History] Meclizine HCl 25 mg PO DAILY PRN 07/04/20 [History] busPIRone HCl [Buspirone HCl] 15 mg PO BID 07/04/20 [History] guaiFENesin [Mucinex] 600 mg PO BID 07/04/20 [History] traZODone HCl [Trazodone HCl] 150 mg PO BEDTIME 07/04/20 [History] Albuterol/Ipratropium [DuoNeb 3.0-0.5 MG/3 ML] 3 ml NEB Q4H PRN neb 07/06/20 [Rx] Nystatin [Nystop] 0 gm TOP BID #1 bottle 07/06/20 [Rx] Forms: ED Department Discharge Referrals: PCP,None [Primary Care Provider] - - Discharge Summary/Plan Comment DC Time >30 min.: Yes - Patient Data Vitals - Most Recent: Last Vital Signs Temp 36.8 C 07/06/20 08:00 Pulse 81 07/06/20 08:00 Resp 20 07/06/20 08:00 BP 141/93 H 07/06/20 08:00 Pulse Ox 93 L 07/06/20 08:00 Weight - Most Recent: 83.915 kg Lab Results - Last 24 hrs: Laboratory Results - last 24 hr 07/05/20 Range/Units 09:39 Sodium 145 (136-145) mmol/L Potassium 4.1 (3.5-5.1) mmol/L Chloride 106 (98-107) mmol/L Carbon Dioxide 28.7 (21.0-32.0) mmol/L Anion Gap 14.4 (5.0-15.0) mmol/L BUN 19 D (8-26) mg/dL Creatinine 0.90 (0.70-1.30) mg/dL Est Cr Clr Drug Dosing 77.68 mL/min Estimated GFR (MDRD) > 60 (>60) MLS/MIN BUN/Creatinine Ratio 21.1 (6-25) Glucose 131 H D (74-100) mg/dL Calcium 8.8 (8.5-10.1) mg/dL KISHOR Results - Last 24 hrs: Microbiology 07/05/20 09:40 MRSA Surveillance Culture - Final Nares, Unspecified NO MRSA ISOLATED Med Orders - Current: Current Medications Albuterol/Ipratropium (Duoneb 3.0-0.5 Mg/3 Ml) 3 ml INH Q4H PRN PRN Reason: Wheezing Last Admin: 07/06/20 08:33 Dose: 3 ml Documented by: Albuterol/Ipratropium (Duoneb 3.0-0.5 Mg/3 Ml) 3 ml NEB Q4H PRN PRN Reason: Wheezing Last Admin: 07/04/20 05:10 Dose: 3 ml Documented by: Aspirin (Halfprin) 81 mg PO DAILY [facility] Last Admin: 07/06/20 07:45 Dose: 81 mg Documented by: Buspirone HCl (Buspar) 15 mg PO BID [facility] Last Admin: 07/06/20 07:45 Dose: 15 mg Documented by: Desvenlafaxine Succinate (Pristiq) 100 mg PO QPM [facility] Last Admin: 07/05/20 19:26 Dose: 100 mg Documented by: Levothyroxine Sodium (Levothyroxine) 150 mcg PO ACBREAKFAST [facility] Last Admin: 07/06/20 06:00 Dose: 150 mcg Documented by: Methylprednisolone Sodium Succinate (Solu-Medrol) 40 mg IVPUSH Q6H [facility] Last Admin: 07/06/20 06:00 Dose: 40 mg Documented by: Nystatin (Nystop) 0 gm TOP BID [place] Last Admin: 07/06/20 07:46 Dose: 1 applic Documented by: Sodium Chloride (Saline Flush) 10 ml FLUSH ASDIRECTED PRN PRN Reason: Keep Vein Open Last Admin: 07/05/20 11:37 Dose: 10 ml Documented by: Trazodone HCl (Trazodone) 150 mg PO BEDTIME [facility] Last Admin: 07/05/20 19:26 Dose: 150 mg Documented by: Discontinued Medications Albuterol/Ipratropium (Duoneb 3.0-0.5 Mg/3 Ml) 3 ml NEB NOW STA Stop: 07/03/20 20:54 Last Admin: 07/03/20 20:50 Dose: 3 ml Documented by: Buspirone HCl (Buspar) Confirm Administered Dose 20 mg .ROUTE .STK-MED ONE Stop: 07/05/20 19:26 Last Admin: 07/05/20 19:27 Dose: Not Given Documented by: Buspirone HCl (Buspar) Confirm Administered Dose 20 mg .ROUTE .STK-MED ONE Stop: 07/06/20 07:38 Last Admin: 07/06/20 07:45 Dose: Not Given Documented by: Furosemide (Lasix) 40 mg PO ONETIME ONE Stop: 07/05/20 09:39 Last Admin: 07/05/20 11:36 Dose: 40 mg Documented by: Methylprednisolone Sodium Succinate (Solu-Medrol) 40 mg IVPUSH ONETIME ONE Stop: 07/03/20 21:39 Last Admin: 07/03/20 22:00 Dose: 40 mg Documented by: Nystatin (Nystop) Confirm Administered Dose 15 gm .ROUTE .STK-MED ONE Stop: 07/04/20 09:30 Last Admin: 07/04/20 09:30 Dose: 1 applic Documented by:
[2020-07-06] MEDS ORDERED: predniSONE 20 MG Tab PO ONE (10:47)
[2020-07-06] MEDS ORDERED: Furosemide 20 MG Tab PO ONE (10:47)
== END 2020-07-06 11:20 ==
LOC: LB.ED 20:49 → LB.MS 22:31 → UNDOADMOB 23:00
PROVIDERS: ADMIT Surgery; ATTEND Surgery
DX: J44.1 Chronic obstructive pulmonary disease with (acute) exacerbation (principal); R21 Rash and other nonspecific skin eruption; I11.0 Hypertensive heart disease with heart failure; I50.9 Heart failure, unspecified; N40.0 Benign prostatic hyperplasia without lower urinary tract symptoms; E03.9 Hypothyroidism, unspecified; Z99.81 Dependence on supplemental oxygen; Z20.822 Contact with and (suspected) exposure to COVID-19; Z79.82 Long term (current) use of aspirin; Z79.890 Hormone replacement therapy; Z79.899 Other long term (current) drug therapy; Z98.890 Other specified postprocedural states
CPT/HCPCS: 36415; 71045; 80048; 83880; 84484; 85025; 85027; 93005; 96374; 96376; 99221; 99232; 99239; 99285-25; A9270-GY; G0378; J2920; J7512; J7620-GY; U0002

== ENCOUNTER 2020-08-25 19:35 | Inpatient (IN) | payer MEDICARE ==
[2020-08-25] MEDS ORDERED: Sodium Chloride 0.65% Nasal Spray 45 ML Bottle NAS ONE (20:08)
[2020-08-25] MEDS ORDERED: Albuterol 0.083% 2.5 MG/3 ML Neb Soln NEB ONE (20:16)
[2020-08-25] MEDS ORDERED: methylPREDNISolone Sodium Succinate 125 MG/2 ML SDV IVPUSH ONE (20:27)
--- NOTE | 2020-08-25 20:34 | EDM.PDOC ---
ED HPI GENERAL MEDICAL PROBLEM - General Chief Complaint: Respiratory Problem Stated Complaint: SOB Time Seen by Provider: 08/25/20 20:00 Source of Information: Reports: Patient History Limitations: Reports: No Limitations - History of Present Illness INITIAL COMMENTS - FREE TEXT/NARRATIVE: 79 year old patient with PMH of COPD, HTN, CHF presents with increased SOB and cough. Chronic O2 4L NC sats 70's with exertion, at rest sats 90-92%. Onset: Today - Related Data Allergies Allergy/AdvReac Type Severity Reaction Status Date / Time No Known Allergies Allergy Verified 07/04/20 20:25 Home Meds: Home Meds Desvenlafaxine [Pristiq] 100 mg PO DAILY 06/01/16 [History] Tamsulosin HCl [Flomax] 0.4 mg PO DAILY 06/01/16 [History] Aspirin [Halfprin] 81 mg PO DAILY 06/21/17 [History] Levothyroxine 150 mcg PO ACBREAKFAST tablet 06/24/17 [Rx] Budesonide/Formoterol Fumarate [Symbicort 160-4.5 Mcg Inhaler] 2 puff IH BID 10/03/17 [History] Albuterol/Ipratropium [DuoNeb 3.0-0.5 MG/3 ML] 3 ml INH Q4H PRN #60 neb 02/22/18 [Rx] Albuterol Sulfate [Proair Hfa] 2 puff IH Q4H PRN 07/04/20 [History] Fluticasone Propionate [Flonase] 1 spray NASBOTH DAILY 07/04/20 [History] Ibuprofen/Diphenhydramine Cit [Advil Pm Caplet] 2 each PO BEDTIME 07/04/20 [History] Mag Hydrox/Aluminum Hyd/Simeth [Alum-Mag Hydroxide-Simeth Susp] 30 ml PO Q4H PRN 07/04/20 [History] Meclizine HCl 25 mg PO DAILY PRN 07/04/20 [History] busPIRone HCl [Buspirone HCl] 15 mg PO BID 07/04/20 [History] guaiFENesin [Mucinex] 600 mg PO BID 07/04/20 [History] traZODone HCl [Trazodone HCl] 150 mg PO BEDTIME 07/04/20 [History] Albuterol/Ipratropium [DuoNeb 3.0-0.5 MG/3 ML] 3 ml NEB Q4H PRN neb 07/06/20 [Rx] Nystatin [Nystop] 0 gm TOP BID #1 bottle 07/06/20 [Rx] Past Medical History - Past Health History Medical/Surgical History: Denies Medical/Surgical History HEENT History: Reports: Impaired Vision Other HEENT History: glasses only at computer Cardiovascular History: Reports: High Cholesterol, Hypertension Respiratory History: Reports: COPD Gastrointestinal History: Reports: None Genitourinary History: Reports: BPH Musculoskeletal History: Reports: Other (See Below) Other Musculoskeletal History: weakness in leg muscles Psychiatric History: Reports: Anxiety, Depression Endocrine/Metabolic History: Reports: Hypothyroidism - Infectious Disease History Infectious Disease History: Reports: C-Difficile, Chicken Pox Other Infectious Disease History: Doesn't know - Past Surgical History HEENT Surgical History: Reports: None Cardiovascular Surgical History: Reports: None Respiratory Surgical History: Reports: None GI Surgical History: Reports: Appendectomy, Hernia, Abdominal Male Surgical History: Reports: None Musculoskeletal Surgical History: Reports: None Social & Family History - Family History Family Medical History: No Pertinent Family History Neurological: Reports: None Psychiatric: Reports: None Endocrine/Metabolic: Reports: None Hematologic: Reports: None Immunologic: Reports: None Dermatologic: Reports: None Oncologic: Reports: None - Caffeine Use Caffeine Use: Reports: Coffee ED ROS GENERAL - Review of Systems Review Of Systems: See Below Constitutional: Reports: No Symptoms HEENT: Reports: No Symptoms Respiratory: Reports: Shortness of Breath, Wheezing, Cough, Sputum Cardiovascular: Reports: Dyspnea on Exertion, Edema Endocrine: Reports: No Symptoms GI/Abdominal: Reports: No Symptoms : Reports: No Symptoms Musculoskeletal: Reports: No Symptoms Skin: Reports: No Symptoms Neurological: Reports: No Symptoms Psychiatric: Reports: Anxiety Hematologic/Lymphatic: Reports: No Symptoms Immunologic: Reports: No Symptoms ED EXAM, GENERAL - Physical Exam Exam: See Below Exam Limited By: No Limitations General Appearance: Alert, Mild Distress Eye Exam: Bilateral Eye: Normal Inspection Ears: Normal External Exam, Normal Canal, Hearing Grossly Normal, Normal TMs Ear Exam: Bilateral Ear: Auricle Normal, Canal Normal, TM normal Nose: Normal Inspection, Normal Mucosa, No Blood Throat/Mouth: Normal Inspection, Normal Lips, Normal Teeth, Normal Gums, Normal Oropharynx, Normal Voice, No Airway Compromise Head: Atraumatic Neck: Normal Inspection, Non-Tender, Full Range of Motion Respiratory/Chest: No Accessory Muscle Use, Decreased Breath Sounds, Rales, Wheezing, Other (inspiratory and expiratory wheezes noted throughout all lung sanchez, decreased in left upper lobe) Cardiovascular: Normal Peripheral Pulses, Regular Rate, Rhythm, No JVD, No Murmur Peripheral Pulses: 3+: Carotid (L), Carotid (R), Radial (L), Radial (R), Dorsalis Pedis (L), Dorsalis Pedis (R) GI/Abdominal: Normal Bowel Sounds, Soft, Non-Tender Back Exam: Normal Inspection, Full Range of Motion Extremities: Normal Inspection, Normal Range of Motion, Non-Tender, Normal Capillary Refill Neurological: Alert, Oriented, CN II-XII Intact, Normal Cognition, No Motor/Sensory Deficits Psychiatric: Normal Affect, Anxious Skin Exam: Warm, Dry, Intact Lymphatic: No Adenopathy Course - Vital Signs Last Recorded V/S: Last Vital Signs Temp 98.1 F 08/25/20 19:35 Pulse 102 H 08/25/20 19:35 Resp 32 H 08/25/20 19:35 BP 93/61 08/25/20 19:35 Pulse Ox 85 L 08/25/20 19:35 - Orders/Labs/Meds Orders: Active Orders 24 hr Category Date Time Status Patient Status [ADT] Routine ADT 08/25/20 20:37 Active EKG Documentation Completion [RC] ASDIRECTED Care 08/25/20 20:06 Active Intake and Output [RC] QSHIFT Care 08/25/20 20:39 Active Oxygen Therapy Adult [Oxygen Therapy, ED] [RC] Care 08/25/20 20:42 Active ASDIRECTED Oxygen Therapy [RC] CONTINUOUS Care 08/25/20 20:37 Active Pulse Oximetry [RC] CONTINUOUS Care 08/25/20 20:39 Active RT Aerosol Therapy [RC] ASDIRECTED Care 08/25/20 20:16 Active Up With Assistance [RC] ASDIRECTED Care 08/25/20 20:37 Active Vital Signs [RC] Q4H Care 08/25/20 20:37 Active Chest 1V Frontal [CR] Stat Exams 08/25/20 20:05 Ordered CULTURE MRSA [RM] Stat Lab 08/25/20 20:45 Received EKG 12 Lead [EK] Routine Ther 08/25/20 20:05 Ordered Labs: Laboratory Tests 08/25/20 08/25/20 08/25/20 Range/Units 20:30 20:30 20:40 WBC 7.0 (4.0-11.0) K/uL RBC 4.10 L (4.50-6.50) M/uL Hgb 13.2 (13.0-18.0) g/dL Hct 40.1 (40.0-54.0) % MCV 98 H (76-96) fL MCH 32.2 H (27.0-32.0) pg MCHC 32.9 (31.0-35.0) g/dL RDW 14.5 (11.0-16.0) % Plt Count 270 D (150-400) K/uL MPV 10.5 H (6.0-10.0) fL Neut % (Auto) 66.3 (45.0-70.0) % Lymph % (Auto) 18.8 L (20.0-40.0) % Travis % (Auto) 11.6 H (3.0-10.0) % Eos % (Auto) 2.9 (1.0-5.0) % Baso % (Auto) 0.4 (0.0-0.5) % Neut # (Auto) 4.63 (2.00-7.50) K/uL Lymph # (Auto) 1.31 L (1.50-4.00) K/uL Travis # (Auto) 0.81 H (0.20-0.80) K/uL Eos # (Auto) 0.20 (0.04-0.40) K/uL Baso # (Auto) 0.03 (0.02-0.10) K/uL ABG pH 7.40 (7.35-7.45) ABG pCO2 42.5 (35-45) mmHg ABG pO2 56.2 L* (80-105) mmHg ABG HCO3 26.0 (22-26) mmol/L ABG O2 Saturation 88.6 L (95-98) % ABG Base Excess 1.1 (-2-2) O2 Delivery Device Nasal cannula Oxygen Flow Rate 4 L Sodium 143 (136-145) mmol/L Potassium 4.5 (3.5-5.1) mmol/L Chloride 105 (98-107) mmol/L Carbon Dioxide 29.0 (21.0-32.0) mmol/L Anion Gap 13.5 (5.0-15.0) mmol/L BUN 10 D (8-26) mg/dL Creatinine 0.94 (0.70-1.30) mg/dL Est Cr Clr Drug Dosing TNP Estimated GFR (MDRD) > 60 (>60) MLS/MIN BUN/Creatinine Ratio 10.6 (6-25) Glucose 109 H (74-100) mg/dL Calcium 9.1 (8.5-10.1) mg/dL Troponin I < 0.017 (0.000-0.060) ng/mL B-Natriuretic Peptide 63 D (0-450) pg/mL SARS-CoV-2 RNA ([place]) (NEGATIVE) 08/25/20 Range/Units 20:45 WBC (4.0-11.0) K/uL RBC (4.50-6.50) M/uL Hgb (13.0-18.0) g/dL Hct (40.0-54.0) % MCV (76-96) fL MCH (27.0-32.0) pg MCHC (31.0-35.0) g/dL RDW (11.0-16.0) % Plt Count (150-400) K/uL MPV (6.0-10.0) fL Neut % (Auto) (45.0-70.0) % Lymph % (Auto) (20.0-40.0) % Travis % (Auto) (3.0-10.0) % Eos % (Auto) (1.0-5.0) % Baso % (Auto) (0.0-0.5) % Neut # (Auto) (2.00-7.50) K/uL Lymph # (Auto) (1.50-4.00) K/uL Travis # (Auto) (0.20-0.80) K/uL Eos # (Auto) (0.04-0.40) K/uL Baso # (Auto) (0.02-0.10) K/uL ABG pH (7.35-7.45) ABG pCO2 (35-45) mmHg ABG pO2 (80-105) mmHg ABG HCO3 (22-26) mmol/L ABG O2 Saturation (95-98) % ABG Base Excess (-2-2) O2 Delivery Device Oxygen Flow Rate L Sodium (136-145) mmol/L Potassium (3.5-5.1) mmol/L Chloride (98-107) mmol/L Carbon Dioxide (21.0-32.0) mmol/L Anion Gap (5.0-15.0) mmol/L BUN (8-26) mg/dL Creatinine (0.70-1.30) mg/dL Est Cr Clr Drug Dosing Estimated GFR (MDRD) (>60) MLS/MIN BUN/Creatinine Ratio (6-25) Glucose (74-100) mg/dL Calcium (8.5-10.1) mg/dL Troponin I (0.000-0.060) ng/mL B-Natriuretic Peptide (0-450) pg/mL SARS-CoV-2 RNA ([place]) Negative (NEGATIVE) Meds: Medications Discontinued Medications Generic Name Dose Route Start Last Admin Trade Name Yahaira PRN Reason Stop Dose Admin Albuterol 2.5 mg 08/25/20 20:16 08/25/20 20:16 Albuterol 0.083% 2.5 Mg/3 Ml Neb Soln NEB 08/25/20 20:17 2.5 mg ONETIME ONE Administration Albuterol Confirm 08/25/20 21:10 08/25/20 21:47 Albuterol 0.083% 2.5 Mg/3 Ml Neb Soln Administered 08/25/20 21:11 Not Given Dose 2.5 mg .ROUTE .STK-MED ONE Albuterol/Ipratropium Confirm 08/25/20 21:09 08/25/20 21:48 Albuterol/Ipratropium 3.0-0.5 Mg/3 Ml Neb Soln Administered 08/25/20 21:10 Not Given Dose 3 ml .ROUTE .STK-MED ONE Ceftriaxone Sodium Confirm 08/25/20 21:44 08/25/20 21:46 Ceftriaxone 1 Gm Vial Administered 08/25/20 21:45 Not Given Dose 1 gm .ROUTE .STK-MED ONE Ceftriaxone Sodium 1 gm/ 50 mls @ 100 mls/hr 08/25/20 20:35 08/25/20 21:40 Sodium Chloride IV 08/25/20 21:04 100 mls/hr ONETIME ONE Administration Azithromycin 500 mg/ Sodium 250 mls @ 250 mls/hr 08/25/20 21:05 Chloride IV 08/25/20 22:04 ONETIME ONE Methylprednisolone Sodium Succinate 125 mg 08/25/20 20:27 08/25/20 21:09 Methylprednisolone Sodium Succinate 125 Mg/2 Ml Sdv IVPUSH 08/25/20 20:28 125 mg ONETIME ONE Administration Methylprednisolone Sodium Succinate Confirm 08/25/20 21:09 08/25/20 21:45 Methylprednisolone Sodium Succinate 125 Mg/2 Ml Sdv Administered 08/25/20 21:10 Not Given Dose 125 mg .ROUTE .STK-MED ONE Sodium Chloride 1 ml 08/25/20 20:08 Sodium Chloride 0.65% Nasal Emmett 45 Ml Bottle LUIS 08/25/20 20:09 ONETIME ONE Departure - Departure Time of Disposition: 21:19 Disposition: Admitted As Inpatient 68 Condition: Fair Clinical Impression: COPD exacerbation Pneumonia Qualifiers: Pneumonia type: due to unspecified organism Laterality: bilateral Lung location: unspecified part of lung Qualified Code(s): J18.9 - Pneumonia, unspecified organism - Discharge Information *PRESCRIPTION DRUG MONITORING PROGRAM REVIEWED*: Not Applicable *COPY OF PRESCRIPTION DRUG MONITORING REPORT IN PATIENT ARTEM: Not Applicable Referrals: PCP,None [Primary Care Provider] - Forms: ED Department Discharge Sepsis Event Note (ED) - Focused Exam Vital Signs: Vital Signs Temp Pulse Resp BP Pulse Ox 08/25/20 19:35 98.1 F 102 H 32 H 93/61 85 L - My Orders Last 24 Hours: My Active Orders 08/25/20 20:05 Chest 1V Frontal [CR] Stat EKG 12 Lead [EK] Routine 08/25/20 20:06 EKG Documentation Completion [RC] ASDIRECTED 08/25/20 20:16 RT Aerosol Therapy [RC] ASDIRECTED 08/25/20 20:37 Patient Status [ADT] Routine Oxygen Therapy [RC] CONTINUOUS Up With Assistance [RC] ASDIRECTED Vital Signs [RC] Q4H 08/25/20 20:39 Intake and Output [RC] QSHIFT Pulse Oximetry [RC] CONTINUOUS 08/25/20 20:42 Oxygen Therapy Adult [Oxygen Therapy, ED] [RC] ASDIRECTED 08/25/20 20:45 CULTURE MRSA [RM] Stat - Assessment/Plan Last 24 Hours: My Active Orders 08/25/20 20:05 Chest 1V Frontal [CR] Stat EKG 12 Lead [EK] Routine 08/25/20 20:06 EKG Documentation Completion [RC] ASDIRECTED 08/25/20 20:16 RT Aerosol Therapy [RC] ASDIRECTED 08/25/20 20:37 Patient Status [ADT] Routine Oxygen Therapy [RC] CONTINUOUS Up With Assistance [RC] ASDIRECTED Vital Signs [RC] Q4H 08/25/20 20:39 Intake and Output [RC] QSHIFT Pulse Oximetry [RC] CONTINUOUS 08/25/20 20:42 Oxygen Therapy Adult [Oxygen Therapy, ED] [RC] ASDIRECTED 08/25/20 20:45 CULTURE MRSA [RM] Stat Plan: Patient will be admitted to hospital for pneumonia, COPD exacerbation He is agreeable to the plan. Waiting for COVID test results.
[2020-08-25] MEDS ORDERED: cefTRIAXone 1 GM in Sodium Chloride 0.9% 50 ML IV ONE ×2 (20:35→22:32)
--- NOTE | 2020-08-25 21:04 | PCM.EKG ---
#1 Interpretation EKG Date: 08/25/20 Time: 20:58 Rhythm: NSR Rate (Beats/Min): 90 [place]: Normal P-Wave: Present QRS: Normal ST-T: Normal QT: Normal Comparison: NA - No Prior EKG
[2020-08-25] MEDS ORDERED: Azithromycin 500 MG in Sodium Chloride 0.9% 250 ML IV ONE (21:05)
[2020-08-25] MEDS ORDERED: Albuterol/Ipratropium 3.0-0.5 MG/3 ML Neb Soln ONE (21:09)
[2020-08-25] MEDS ORDERED: methylPREDNISolone Sodium Succinate 125 MG/2 ML SDV ONE (21:09)
[2020-08-25] MEDS ORDERED: Albuterol 0.083% 2.5 MG/3 ML Neb Soln ONE (21:10)
[2020-08-25] MEDS ORDERED: cefTRIAXone 1 GM Vial ONE (21:44)
[2020-08-25] MEDS ORDERED: Albuterol/Ipratropium 3.0-0.5 MG/3 ML Neb Soln NEB PRN (22:32)
[2020-08-25] MEDS ORDERED: Azithromycin 500 MG in Sodium Chloride 0.9% 250 ML IV SCH (22:45)
--- NOTE | 2020-08-26 00:53 | PCM.CONS ---
H&P History of Present Illness - General Date of Service: 08/26/20 Admit Problem/Dx: Admission Diagnosis/Problem Admission Diagnosis/Problem Pneumonia Source of Information: Provider History Limitations: Reports: Altered Mental Status - History of Present Illness Initial Comments - Free Text/Narative: [facility]E [facility] HOSPITALIST CONSULTATION NOTE: The Eliane Merino hospitalist was contacted by the local/ER provider with a request for consultation for admission support and cross coverage services for this patient. The ER provider requesting the consultation is Stephanie Santacruz NP. Reason for admission: Pneumonia; COPD exacerbation. HPI or ER course: The patient is a 79-year-old gentleman who presented to the emergency room complaining of shortness of breath. He has a [facility] resident. He has a history of COPD, and he is on chronic O2 therapy. The onset of the patient's shortness of breath was earlier today. The patient is alert and oriented to self and place, however, he does not appear to have insight into his chronic health problems, and is not a good historian. He was hypoxic on presentation, however, with titration of his supplemental oxygen and administration of nebulized bronchodilators his O2 saturations improved significantly. His vital signs were within normal range on presentation, and he was afebrile. There are no bedside findings of CHF. Auscultation of the lungs reveal coarse rhonchi and end expiratory wheezing, bilaterally. A chest x-ray, according to the ER provider's reading, revealed bilateral infiltration. A Co vid19 viral screening test was negative. Home Medications: The home medication list was reviewed in the EMR. If verified for continuation it may be reconciled at this time. Pertinent Medical History: COPD. Pertinent Social History: Reviewed in ER encounter note, and in available OPD progress notes. EXAM: Performed via an interactive video with the assistance of the bedside nurse: Dai. VS: T 36.6. P 94. RR 18. BP 102/69. O2 saturation 90%. GENERAL: The patient is awake. His sensorium is clear. However, the patient is not well oriented to situation and time. He does follow commands appropriately. HEENT: Pupils reported ERRL by the RN. Facial features are symmetric. Mucous membranes moist and pink. Oropharynx clear. NECK: Supple. No JVD is seen. No bruits are heard. LUNGS: Coarse rhonchi are heard in the anterior sanchez, bilaterally. These clear with a cough. End expiratory wheezing is heard in the anterior sanchez. Breath sounds are diminished in the posterior bases. CV: There is a regular rhythm and rate. No murmurs, gallops, or rubs are heard. ABD: Bowel sounds are present. Soft. Nontender. EXTR: There is 1/4 dependent edema in the legs below the knees, bilaterally. SKIN: Normal temperature, texture, and turgor. No rashes are seen. NEURO: Alert. Oriented x 3. CrN III - VII, XI, XII grossly intact. Moves all extremities without any significant focal deficit appreciated by the nurse. Pertinent Lab: Reviewed in the EMR. WBC 7000. BUN 10. Creatinine 0.94. Glucose 109. BNP 63. Covid19 viral screening assay negative. AB.4; 42.5; 56.2. EKG Findings: N/A. Available Radiology Reports: Currently none available. A single view chest x- ray reportedly shows bilateral lung infiltration without signs of CHF, according to the ER providers reading. ASSESSMENT: 1. Pneumonia, without signs of sepsis. This is probably a community-acquired pneumonia. 2. COPD with mild to moderate exacerbation. PLANS: 1. [facility] will provide admission support and cross coverage services during this admission. 2. Continue empiric antibiotic coverage initiated in the ER: Rocephin; Zithromax. 3. Schedule and as needed nebulized bronchodilator therapy. 4. Reconcile home medication list when the list is clarified for continuation. 5. DVT prevention steps. RECOMMENDATIONS: 1. Titrate FiO2 to keep O2 Sat levels greater than 90%. 2. Consider the potential benefits of systemic steroid therapy if the patient has continued wheezing and hypoxia. I have reviewed the case in consultation. Information is gathered from conversations with the local provider, a review of the patient's chart, and by a patient evaluation. Based on the current information and the patients current medical condition, I certify the patient meets criteria for: Acute inpatient status with the expectation of a patient stay of more than 2 midnights, but less than 96 hrs. [facility] you [facility]. This service is available for further assistance as requested by your care team by calling [phone]. Other HPI/Comments: [facility] HOSPITALIST CONSULTATION NOTE: The [facility] hospitalist was contacted by the local/ER provider with a reques t for consultation for admission support and cross coverage services for this patient. The ER provider requesting the consultation is Stephanie Santacruz NP. Reason for admission: Pneumonia; COPD exacerbation. HPI or ER course: The patient is a 79-year-old gentleman who presented to the emergency room complaining of shortness of breath. He has a [facility] resident. He has a history of COPD, and he is on chronic O2 therapy. The onset of the patient's shortness of breath was earlier today. The patient is alert and oriented to self and place, however, he does not appear to have insight into his chronic health problems, and is not a good historian. He was hypoxic on presentation, however, with titration of his supplemental oxygen and administration of nebulized bronchodilators his O2 saturations improved significantly. His vital signs were within normal range on presentation, and he was afebrile. There are no bedside findings of CHF. Auscultation of the lungs reveal coarse rhonchi and end expiratory wheezing, bilaterally. A chest x-ray, according to the ER provider's reading, revealed bilateral infiltration. A Covid19 viral screening test was negative. Home Medications: The home medication list was reviewed in the EMR. If verified for continuation it may be reconciled at this time. Pertinent Medical History: COPD. Pertinent Social History: Reviewed in ER encounter note, and in available OPD progress notes. EXAM: Performed via an interactive video with the assistance of the bedside nurse: Dai. VS: T 36.6. P 94. RR 18. BP 102/69. O2 saturation 90%. GENERAL: The patient is awake. His sensorium is clear. However, the patient is not well oriented to situation and time. He does follow commands appropriately. HEENT: Pupils reported ERRL by the RN. Facial features are symmetric. Mucous membranes moist and pink. Oropharynx clear. NECK: Supple. No JVD is seen. No bruits are heard. LUNGS: Coarse rhonchi are heard in the anterior sanchez, bilaterally. These clear with a cough. End expiratory wheezing is heard in the anterior sanchez. Breath sounds are diminished in the posterior bases. CV: There is a regular rhythm and rate. No murmurs, gallops, or rubs are heard. ABD: Bowel sounds are present. Soft. Nontender. EXTR: There is 1/4 dependent edema in the legs below the knees, bilaterally. SKIN: Normal temperature, texture, and turgor. No rashes are seen. NEURO: Alert. Oriented x 3. CrN III - VII, XI, XII grossly intact. Moves all extremities without any significant focal deficit appreciated by the nurse. Pertinent Lab: Reviewed in the EMR. WBC 7000. BUN 10. Creatinine 0.94. Glucose 109. BNP 63. Covid19 viral screening assay negative. AB.4; 42.5; 56.2. EKG Findings: N/A. Available Radiology Reports: Currently none available. A single view chest x- ray reportedly shows bilateral lung infiltration without signs of CHF, according to the ER providers reading. ASSESSMENT: 1. Pneumonia, without signs of sepsis. This is probably a community-acquired pneumonia. 2. COPD with mild to moderate exacerbation. PLANS: [facility] services during this admission. 2. Continue empiric antibiotic coverage initiated in the ER: Rocephin; Zithromax. 3. Schedule and as needed nebulized bronchodilator therapy. 4. Reconcile home medication list when the list is clarified for continuation. 5. DVT prevention steps. RECOMMENDATIONS: 1. Titrate FiO2 to keep O2 Sat levels greater than 90%. 2. Consider the potential benefits of systemic steroid therapy if the patient has continued wheezing and hypoxia. I have reviewed the case in consultation. Information is gathered from conversations with the local provider, a review of the patient's chart, and by a patient evaluation. Based on the current information and the patients current medical condition, I certify the patient meets criteria for: Acute inpatient status with the expectation of a patient stay of more than 2 midnights, but less than 96 hrs. Thank you for including [facility] in the patients care. This service is available for further assistance as requested by your care team by calling [phone]. - Related Data Allergies/Adverse Reactions: Allergies Allergy/AdvReac Type Severity Reaction Status Date / Time No Known Allergies Allergy Verified 08/25/20 23:04 Home Medications: Home Meds Desvenlafaxine [Pristiq] 100 mg PO DAILY 06/01/16 [History] Tamsulosin HCl [Flomax] 0.4 mg PO DAILY 06/01/16 [History] Aspirin [Halfprin] 81 mg PO DAILY 06/21/17 [History] Budesonide/Formoterol Fumarate [Symbicort 160-4.5 Mcg Inhaler] 2 puff IH BID 10/03/17 [History] Albuterol/Ipratropium [DuoNeb 3.0-0.5 MG/3 ML] 3 ml INH Q4H PRN #60 neb 02/22/18 [Rx] Albuterol Sulfate [Proair Hfa] 2 puff IH Q4H PRN 07/04/20 [History] Fluticasone Propionate [Flonase] 1 spray NASBOTH DAILY 07/04/20 [History] Ibuprofen/Diphenhydramine Cit [Advil Pm Caplet] 2 tab PO BEDTIME 07/04/20 [History] Mag Hydrox/Aluminum Hyd/Simeth [Alum-Mag Hydroxide-Simeth Susp] 30 ml PO Q4H PRN 07/04/20 [History] Meclizine HCl 25 mg PO DAILY PRN 07/04/20 [History] busPIRone HCl [Buspirone HCl] 15 mg PO BID 07/04/20 [History] guaiFENesin [Mucinex] 600 mg PO BID 07/04/20 [History] traZODone HCl [Trazodone HCl] 150 mg PO BEDTIME 07/04/20 [History] Nystatin [Nystop] 0 gm TOP BID #1 bottle 07/06/20 [Rx] Cholecalciferol (Vitamin D3) [Vitamin D3] 2,000 unit PO DAILY 08/26/20 [History] Cyanocobalamin (Vitamin B-12) [B-12] 1,000 mcg PO DAILY 08/26/20 [History] Docusate Sodium [Colace] 100 mg PO BEDTIME PRN 08/26/20 [History] Levothyroxine 137 mcg PO ACBREAKFAST 08/26/20 [History] Menthol [[place]] 7 mg MM Q2HR PRN 08/26/20 [History] Non-Formulary Medication [NF Drug] 30 ml PO Q6HR PRN 08/26/20 [History] Sulfamethoxazole/Trimethoprim [Bactrim Ds Tablet] 1 tab PO DAILY 08/26/20 [History] Tiotropium [place] [Spiriva Respimat] 2.5 mcg INH DAILY 08/26/20 [History] Past Medical History - Past Health History Medical/Surgical History: Denies Medical/Surgical History HEENT History: Reports: Impaired Vision Other HEENT History: glasses only at computer Cardiovascular History: Reports: High Cholesterol, Hypertension Respiratory History: Reports: COPD Gastrointestinal History: Reports: None Genitourinary History: Reports: BPH Musculoskeletal History: Reports: Other (See Below) Other Musculoskeletal History: weakness in leg muscles Psychiatric History: Reports: Anxiety, Depression Endocrine/Metabolic History: Reports: Hypothyroidism - Infectious Disease History Infectious Disease History: Reports: C-Difficile, Chicken Pox Other Infectious Disease History: Doesn't know - Past Surgical History HEENT Surgical History: Reports: None Cardiovascular Surgical History: Reports: None Respiratory Surgical History: Reports: None GI Surgical History: Reports: Appendectomy, Hernia, Abdominal Male Surgical History: Reports: None Musculoskeletal Surgical History: Reports: None Social & Family History - Family History Family Medical History: No Pertinent Family History Neurological: Reports: None Psychiatric: Reports: None Endocrine/Metabolic: Reports: None Hematologic: Reports: None Immunologic: Reports: None Dermatologic: Reports: None Oncologic: Reports: None - Tobacco Use Tobacco Use Status *Q: Unknown Ever Used Tobacco Second Hand Smoke Exposure: No - Caffeine Use Caffeine Use: Reports: Coffee - Recreational Drug Use Recreational Drug Use: No H&P Review of Systems - Review of Systems: Review Of Systems: See Below (The patient is a poor historian. A reliable ROS was not obtainable.) Reason Not Obtained: The patient is a poor historian. Exam - Exam Exam: See Below (The exam findings are documented in the consultation note.) Reason Not Obtained: Exam findings documented in body of consultation note. - Vital Signs Vital Signs: Last Vital Signs Temp 36.9 C 08/25/20 22:40 Pulse 103 H 08/25/20 22:40 Resp 18 08/25/20 22:40 BP 100/58 L 08/25/20 22:40 Pulse Ox 93 L 08/25/20 22:40 Weight: 104.372 kg - Exam Physical Exam Comments:: Exam findings documented above in the body of the consultation note. - Patient Data Lab Results Last 24 hrs: Laboratory Results - last 24 hr 08/25/20 08/25/20 08/25/20 Range/Units 20:30 20:30 20:40 WBC 7.0 (4.0-11.0) K/uL RBC 4.10 L (4.50-6.50) M/uL Hgb 13.2 (13.0-18.0) g/dL Hct 40.1 (40.0-54.0) % MCV 98 H (76-96) fL MCH 32.2 H (27.0-32.0) pg MCHC 32.9 (31.0-35.0) g/dL RDW 14.5 (11.0-16.0) % Plt Count 270 D (150-400) K/uL MPV 10.5 H (6.0-10.0) fL Neut % (Auto) 66.3 (45.0-70.0) % Lymph % (Auto) 18.8 L (20.0-40.0) % [place] % (Auto) 11.6 H (3.0-10.0) % Eos % (Auto) 2.9 (1.0-5.0) % Baso % (Auto) 0.4 (0.0-0.5) % Neut # (Auto) 4.63 (2.00-7.50) K/uL Lymph # (Auto) 1.31 L (1.50-4.00) K/uL [place] # (Auto) 0.81 H (0.20-0.80) K/uL Eos # (Auto) 0.20 (0.04-0.40) K/uL Baso # (Auto) 0.03 (0.02-0.10) K/uL ABG pH 7.40 (7.35-7.45) ABG pCO2 42.5 (35-45) mmHg ABG pO2 56.2 L* (80-105) mmHg ABG HCO3 26.0 (22-26) mmol/L ABG O2 Saturation 88.6 L (95-98) % ABG Base Excess 1.1 (-2-2) O2 Delivery Device Nasal cannula Oxygen Flow Rate 4 L Sodium 143 (136-145) mmol/L Potassium 4.5 (3.5-5.1) mmol/L Chloride 105 (98-107) mmol/L Carbon Dioxide 29.0 (21.0-32.0) mmol/L Anion Gap 13.5 (5.0-15.0) mmol/L BUN 10 D (8-26) mg/dL Creatinine 0.94 (0.70-1.30) mg/dL Est Cr Clr Drug Dosing TNP Estimated GFR (MDRD) > 60 (>60) MLS/MIN BUN/Creatinine Ratio 10.6 (6-25) Glucose 109 H (74-100) mg/dL Calcium 9.1 (8.5-10.1) mg/dL Troponin I < 0.017 (0.000-0.060) ng/mL B-Natriuretic Peptide 63 D (0-450) pg/mL SARS-CoV-2 RNA ([place]ONINA) (NEGATIVE) 08/25/20 Range/Units 20:45 WBC (4.0-11.0) K/uL RBC (4.50-6.50) M/uL Hgb (13.0-18.0) g/dL Hct (40.0-54.0) % MCV (76-96) fL MCH (27.0-32.0) pg MCHC (31.0-35.0) g/dL RDW (11.0-16.0) % Plt Count (150-400) K/uL MPV (6.0-10.0) fL Neut % (Auto) (45.0-70.0) % Lymph % (Auto) (20.0-40.0) % [place] % (Auto) (3.0-10.0) % Eos % (Auto) (1.0-5.0) % Baso % (Auto) (0.0-0.5) % Neut # (Auto) (2.00-7.50) K/uL Lymph # (Auto) (1.50-4.00) K/uL [place] # (Auto) (0.20-0.80) K/uL Eos # (Auto) (0.04-0.40) K/uL Baso # (Auto) (0.02-0.10) K/uL ABG pH (7.35-7.45) ABG pCO2 (35-45) mmHg ABG pO2 (80-105) mmHg ABG HCO3 (22-26) mmol/L ABG O2 Saturation (95-98) % ABG Base Excess (-2-2) O2 Delivery Device Oxygen Flow Rate L Sodium (136-145) mmol/L Potassium (3.5-5.1) mmol/L Chloride (98-107) mmol/L Carbon Dioxide (21.0-32.0) mmol/L Anion Gap (5.0-15.0) mmol/L BUN (8-26) mg/dL Creatinine (0.70-1.30) mg/dL Est Cr Clr Drug Dosing Estimated GFR (MDRD) (>60) MLS/MIN BUN/Creatinine Ratio (6-25) Glucose (74-100) mg/dL Calcium (8.5-10.1) mg/dL Troponin I (0.000-0.060) ng/mL B-Natriuretic Peptide (0-450) pg/mL SARS-CoV-2 RNA ([place]) Negative (NEGATIVE) Result Diagrams: 08/26/20 08:15 08/26/20 08:15 Sepsis Event Note - Evaluation Sepsis Screening Result: Sepsis Risk Current Stage of Sepsis: Ruled Out Reason for Ruling Out Sepsis: The patient is not hypotensive, and does not have tachycardia, or tachypnea. There is no leukocytosis. - Focused Exam Vital Signs: Vital Signs Temp Pulse Resp BP Pulse Ox 08/25/20 22:40 36.9 C 103 H 18 100/58 L 93 L 08/25/20 20:37 36.6 C 94 18 102/69 90 L 08/25/20 19:35 36.7 C 102 H 32 H 93/61 85 L *Q Meaningful Use (ADM) - VTE Risk Assess *Q Each Risk Factor Represents 1 Point: None Total Score 1 Point Risk Factors: 0 Each Risk Factor Represents 2 Points: None Total Score 2 Point Risk Factors: 0 Each Risk Factor Represents 3 Points: Age 75 Years or Greater Total Score 3 Point Risk Factors: 3 Each Risk Factor Represents 5 Points: None Total Score 5 Point Risk Factors: 0 Venous Thromboembolism Risk Factor Score *Q: 3 - AMI *Q Aspirin Contraindications AMI *Q: Further Opinion Sought Thrombolytic/Fibrinolytic Contraindications IV (AMI) *Q: Further opinion sought Statin Contraindications AMI *Q: Further Opinion Sought - Tobacco (TOB) Core Measure 1:1 Practical Counseling Performed: No Practical Counseling Components Addressed: No Recognizing Danger Situations: No Benefits of Quitting Smoking: No Resources to Support Quitting: No Developing Coping Skills: No Quit Techniques: No Consult PN Assessment/Plan Procedures: Procedures ASSAY OF FOLIC ACID SERUM (12/03/15) ASSAY OF FREE THYROXINE (08/02/16) ASSAY OF IRON (07/30/20) ASSAY OF LACTIC ACID (10/11/19) ASSAY OF MAGNESIUM (07/30/20) ASSAY OF NATRIURETIC PEPTIDE (07/03/20) ASSAY OF TROPONIN QUANT (07/03/20) ASSAY OF VITAMIN B-1 (06/04/17) ASSAY THYROID STIM HORMONE (07/30/20) BLOOD CULTURE FOR BACTERIA (10/11/19) BLOOD GASES ANY COMBINATION (06/21/17) BLOOD PH (07/18/19) C-REACTIVE PROTEIN (07/30/20) CHEST X-RAY 2VW FRONTAL&LATL (09/25/16) COMPLETE CBC AUTOMATED (07/03/20) COMPLETE CBC W/AUTO DIFF WBC (07/30/20) COMPREHEN METABOLIC PANEL (07/30/20) CT ABD & PELVIS W/O CONTRAST (07/18/19) CT NECK SPINE W/O DYE (12/03/15) CT THORAX DX C- (07/18/19) CULTURE AEROBIC IDENTIFY (10/11/19) CULTURE OTHR SPECIMN AEROBIC (06/30/19) ELECTROCARDIOGRAM TRACING (07/03/20) EMERGENCY DEPT VISIT (07/03/20) EMERGENCY DEPT VISIT (04/18/18) EMERGENCY DEPT VISIT (03/13/18) EMERGENCY DEPT VISIT (02/22/18) EMERGENCY DEPT VISIT (02/22/18) EMERGENCY DEPT VISIT (10/21/17) EMERGENCY DEPT VISIT (10/03/17) EMERGENCY DEPT VISIT (07/14/17) EMERGENCY DEPT VISIT (06/11/17) EMERGENCY DEPT VISIT (06/11/17) EMERGENCY DEPT VISIT (06/01/16) EMERGENCY DEPT VISIT (11/27/15) EMERGENCY DEPT VISIT (11/27/15) FIBRIN DEGRADATION QUANT (07/14/17) FREE ASSAY (FT-3) (08/02/16) HOSPITAL DISCHARGE DAY (07/03/20) IMMUNIZATION ADMIN (04/18/18) INFLUENZA ASSAY W/OPTIC (10/11/19) INITIAL HOSPITAL CARE (07/03/20) INITIAL OBSERVATION CARE (06/30/19) IRON BINDING TEST (07/30/20) LACTATE (LD) (LDH) ENZYME (10/11/19) LIPID PANEL (12/03/15) METABOLIC PANEL TOTAL CA (07/03/20) MICROBE SUSCEPTIBLE KISHOR (10/11/19) MRI LOWER EXTREMITY W/O DYE (10/23/17) OBSERVATION CARE DISCHARGE (06/30/19) OT EVAL LOW COMPLEX 30 MIN (10/11/19) PT EVAL LOW COMPLEX 20 MIN (10/11/19) RBC SED RATE NONAUTOMATED (07/30/20) ROUTINE VENIPUNCTURE (07/03/20) SMEAR GRAM STAIN (06/30/19) SUBSEQUENT HOSPITAL CARE (07/03/20) SUBSEQUENT OBSERVATION CARE (06/30/19) TD VACC NO PRESV 7 YRS+ IM (04/18/18) THER/PROPH/DIAG INJ IV PUSH (07/03/20) THER/PROPH/DIAG INJ SC/IM (02/22/18) THER/PROPH/DIAG IV INF ADDON (06/01/16) THER/PROPH/DIAG IV INF INIT (06/30/19) THERAPEUTIC EXERCISES (10/11/19) TX/PRO/DX INJ NEW DRUG ADDON (07/18/19) TX/PRO/DX INJ SAME DRUG CADD OPERATOR (07/03/20) UR ALBUMIN QUANTITATIVE (12/03/15) URINALYSIS AUTO W/O SCOPE (10/11/19) URINALYSIS AUTO W/SCOPE (12/03/15) VITAMIN B-12 (07/30/20) VITAMIN D 25 HYDROXY (07/30/20) X-RAY EXAM ABDOMEN 2 VIEWS (06/11/17) X-RAY EXAM CHEST 1 VIEW (07/03/20) X-RAY EXAM CHEST 2 VIEWS (07/13/20) X-RAY EXAM OF ANKLE (10/21/17) (1) COPD exacerbation SNOMED Code(s): 458906023 Code(s): J44.1 - CHRONIC OBSTRUCTIVE PULMONARY DISEASE W (ACUTE) EXACERBATION Priority: High Comment: 10/03/17 - Chronic obstructive pulomnary disease exacerbation 07/14/17 - chronic obstructive pulmonary disease (2) Pneumonia SNOMED Code(s): 263969273 Code(s): J18.9 - PNEUMONIA, UNSPECIFIED ORGANISM Priority: Medium Onset Date: ~08/25/20 Qualifiers: Pneumonia type: aspiration pneumonia Laterality: right Lung location: unspecified part of lung Problem List Initiated/Reviewed/Updated: Yes My Orders Last 24 Hours: My Active Orders 08/26/20 00:51 RT Aerosol Therapy [RC] ASDIRECTED 08/26/20 01:00 Albuterol/Ipratropium [DuoNeb 3.0-0.5 MG/3 ML] 3 ml NEB Q6H Plan: See assessments and plans documented above in the consultation note.
[2020-08-26] MEDS ORDERED: Albuterol/Ipratropium 3.0-0.5 MG/3 ML Neb Soln NEB SCH ×2 (01:00→06:00)
[2020-08-26] MEDS ORDERED: Meclizine 12.5 MG Tab PO PRN (06:53)
[2020-08-26] MEDS ORDERED: Docusate Sodium 100 MG Cap PO PRN (07:03)
[2020-08-26] MEDS: Albuterol 0.083% 2.5 MG/3 ML Neb Soln NEB PRN ×3 (07:06→18:00)
[2020-08-26] MEDS: Nystatin Topical Powder 15 GM Bottle TOP SCH ×2 (07:57→09:57)
[2020-08-26] MEDS ORDERED: guaiFENesin 600 MG Tab.ER PO SCH (08:00)
[2020-08-26] MEDS ORDERED: Aspirin 81 MG Tab.EC PO SCH (08:00)
[2020-08-26] MEDS ORDERED: Cholecalciferol (Vitamin D3) 2,000 Unit Cap PO SCH (08:00)
[2020-08-26] MEDS ORDERED: Fluticasone Propionate Nasal Spray 16 GM Bottle NASBOTH SCH (08:00)
[2020-08-26] MEDS ORDERED: busPIRone 15 MG Tab PO SCH (08:00)
[2020-08-26] MEDS ORDERED: Desvenlafaxine 50 MG Tab.ER PO SCH (08:00)
[2020-08-26] MEDS ORDERED: Cyanocobalamin (Vitamin B12) 1,000 MCG Tab PO SCH (08:00)
[2020-08-26] MEDS ORDERED: Sulfamethoxazole/Trimethoprim 800-160 MG Tab PO SCH (08:00)
--- NOTE | 2020-08-26 08:15 | CR ---
DATE OF SERVICE: 08/25/20 CLINICAL DATA: SOB AP CHEST: Comparison is made to a prior exam dated 07/13/20. The heart size is normal. 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 There are patchy ground glass opacities noted in both lungs that were not present on the prior study. Pneumonitis/pneumonia should be considered. No pneumothorax. No pleural effusions. The exam is otherwise unchanged from the prior. [id number] [facility]
[2020-08-26] MEDS ORDERED: Albuterol/Ipratropium 3.0-0.5 MG/3 ML Neb Soln NEB PRN (08:45)
[2020-08-26] MEDS ORDERED: methylPREDNISolone Sodium Succinate 40 MG/1 ML SDV IVPUSH SCH (08:45)
--- NOTE | 2020-08-26 09:20 | PCM.HP.2 ---
H&P History of Present Illness - General Date of Service: 08/26/20 Admit Problem/Dx: Admission Diagnosis/Problem Admission Diagnosis/Problem Pneumonia Source of Information: Patient History Limitations: Reports: No Limitations - History of Present Illness Initial Comments - Free Text/Narative: 79 YOM admitted from the ED last night. He is a NH patient with a chronic HX of SOB from COPD and CHF. PMH includes HTN. Today he has concerns of worsening SOB due to admission Dx of pneumonia. Lungs are CTA. Normal HRR. Abd is soft and non tender. No fever. No productive cough. No pedal edema. Onset of Symptoms: Reports: Gradual Symptom Onset Date: 08/25/20 Duration of Symptoms: Reports: Day(s): Location: Reports: Chest Severity: Moderate Improves with: Reports: Other (Nebulizer, steroids, O2, Albuterol) Worsens with: Reports: Movement Associated Symptoms: Reports: Malaise, Shortness of Breath - Related Data Allergies/Adverse Reactions: Allergies Allergy/AdvReac Type Severity Reaction Status Date / Time No Known Allergies Allergy Verified 08/25/20 23:04 Home Medications: Home Meds Desvenlafaxine [Pristiq] 100 mg PO DAILY 06/01/16 [History] Tamsulosin HCl [Flomax] 0.4 mg PO DAILY 06/01/16 [History] Aspirin [Halfprin] 81 mg PO DAILY 06/21/17 [History] Levothyroxine 150 mcg PO ACBREAKFAST tablet 06/24/17 [Rx] Budesonide/Formoterol Fumarate [Symbicort 160-4.5 Mcg Inhaler] 2 puff IH BID 10/03/17 [History] Albuterol/Ipratropium [DuoNeb 3.0-0.5 MG/3 ML] 3 ml INH Q4H PRN #60 neb 02/22/18 [Rx] Albuterol Sulfate [Proair Hfa] 2 puff IH Q4H PRN 07/04/20 [History] Fluticasone Propionate [Flonase] 1 spray NASBOTH DAILY 07/04/20 [History] Ibuprofen/Diphenhydramine Cit [Advil Pm Caplet] 2 each PO BEDTIME 07/04/20 [History] Mag Hydrox/Aluminum Hyd/Simeth [Alum-Mag Hydroxide-Simeth Susp] 30 ml PO Q4H PRN 07/04/20 [History] Meclizine HCl 25 mg PO DAILY PRN 07/04/20 [History] busPIRone HCl [Buspirone HCl] 15 mg PO BID 07/04/20 [History] guaiFENesin [Mucinex] 600 mg PO BID 07/04/20 [History] traZODone HCl [Trazodone HCl] 150 mg PO BEDTIME 07/04/20 [History] Albuterol/Ipratropium [DuoNeb 3.0-0.5 MG/3 ML] 3 ml NEB Q4H PRN neb 07/06/20 [Rx] Nystatin [Nystop] 0 gm TOP BID #1 bottle 07/06/20 [Rx] Furosemide [Lasix] 40 mg PO DAILY 08/25/20 [History] Past Medical History - Past Health History Medical/Surgical History: Denies Medical/Surgical History HEENT History: Reports: Impaired Vision Other HEENT History: glasses only at computer Cardiovascular History: Reports: High Cholesterol, Hypertension Respiratory History: Reports: COPD Gastrointestinal History: Reports: None Genitourinary History: Reports: BPH Musculoskeletal History: Reports: Other (See Below) Other Musculoskeletal History: weakness in leg muscles Psychiatric History: Reports: Anxiety, Depression Endocrine/Metabolic History: Reports: Hypothyroidism - Infectious Disease History Infectious Disease History: Reports: C-Difficile, Chicken Pox Other Infectious Disease History: Doesn't know - Past Surgical History HEENT Surgical History: Reports: None Cardiovascular Surgical History: Reports: None Respiratory Surgical History: Reports: None GI Surgical History: Reports: Appendectomy, Hernia, Abdominal Male Surgical History: Reports: None Musculoskeletal Surgical History: Reports: None Social & Family History - Family History Family Medical History: No Pertinent Family History Neurological: Reports: None Psychiatric: Reports: None Endocrine/Metabolic: Reports: None Hematologic: Reports: None Immunologic: Reports: None Dermatologic: Reports: None Oncologic: Reports: None - Tobacco Use Tobacco Use Status *Q: Unknown Ever Used Tobacco Second Hand Smoke Exposure: No - Caffeine Use Caffeine Use: Reports: Coffee - Recreational Drug Use Recreational Drug Use: No H&P Review of Systems - Review of Systems: Review Of Systems: Comprehensive ROS is negative, except as noted in HPI. Pulmonary: Reports: Shortness of Breath Exam - Exam Exam: See Below - Vital Signs Vital Signs: Last Vital Signs Temp 36.9 C 08/26/20 08:00 Pulse 107 H 08/26/20 08:00 Resp 14 08/26/20 08:00 BP 112/65 08/26/20 08:00 Pulse Ox 92 L 08/26/20 08:00 Weight: 104.372 kg - Exam General: Alert, Oriented HEENT: PERRLA, Hearing Intact, Mucosa Moist & [place], Nares Patent, Pupils Equal, Pupils Reactive Neck: Supple, Trachea Midline Lungs: Clear to Auscultation Cardiovascular: Regular Rate, Regular Rhythm GI/Abdominal Exam: Normal Bowel Sounds, Soft, Non-Tender (Male) Exam: Deferred Rectal (Males) Exam: Deferred Extremities: Normal Inspection, No Pedal Edema Skin: Warm, Dry, Intact Neurological: Cranial Nerves Intact, Reflexes Equal Bilateral Neuro Extensive - Mental Status: Alert, Oriented x3, Normal Mood/Affect Neuro Extensive - Motor, Sensory, Reflexes: CN II-XII Intact Psychiatric: Alert, Normal Affect, Normal Mood - Patient Data Lab Results Last 24 hrs: Laboratory Results - last 24 hr 08/25/20 08/25/20 08/25/20 Range/Units 20:30 20:30 20:40 WBC 7.0 (4.0-11.0) K/uL RBC 4.10 L (4.50-6.50) M/uL Hgb 13.2 (13.0-18.0) g/dL Hct 40.1 (40.0-54.0) % MCV 98 H (76-96) fL MCH 32.2 H (27.0-32.0) pg MCHC 32.9 (31.0-35.0) g/dL RDW 14.5 (11.0-16.0) % Plt Count 270 D (150-400) K/uL MPV 10.5 H (6.0-10.0) fL Neut % (Auto) 66.3 (45.0-70.0) % Lymph % (Auto) 18.8 L (20.0-40.0) % [place] % (Auto) 11.6 H (3.0-10.0) % Eos % (Auto) 2.9 (1.0-5.0) % Baso % (Auto) 0.4 (0.0-0.5) % Neut # (Auto) 4.63 (2.00-7.50) K/uL Lymph # (Auto) 1.31 L (1.50-4.00) K/uL [place] # (Auto) 0.81 H (0.20-0.80) K/uL Eos # (Auto) 0.20 (0.04-0.40) K/uL Baso # (Auto) 0.03 (0.02-0.10) K/uL ABG pH 7.40 (7.35-7.45) ABG pCO2 42.5 (35-45) mmHg ABG pO2 56.2 L* (80-105) mmHg ABG HCO3 26.0 (22-26) mmol/L ABG O2 Saturation 88.6 L (95-98) % ABG Base Excess 1.1 (-2-2) O2 Delivery Device Nasal cannula Oxygen Flow Rate 4 L Sodium 143 (136-145) mmol/L Potassium 4.5 (3.5-5.1) mmol/L Chloride 105 (98-107) mmol/L Carbon Dioxide 29.0 (21.0-32.0) mmol/L Anion Gap 13.5 (5.0-15.0) mmol/L BUN 10 D (8-26) mg/dL Creatinine 0.94 (0.70-1.30) mg/dL Est Cr Clr Drug Dosing TNP Estimated GFR (MDRD) > 60 (>60) MLS/MIN BUN/Creatinine Ratio 10.6 (6-25) Glucose 109 H (74-100) mg/dL Calcium 9.1 (8.5-10.1) mg/dL Total Bilirubin (0.0-1.0) mg/dL AST (15-37) U/L ALT (12-78) U/L Alkaline Phosphatase (46-116) U/L Troponin I < 0.017 (0.000-0.060) ng/mL B-Natriuretic Peptide 63 D (0-450) pg/mL Total Protein (6.4-8.2) g/dL Albumin (3.4-5.0) g/dL Globulin (2.2-4.2) g/dL Albumin/Globulin Ratio (0.8-2.0) Urine Color Urine Appearance (CLEAR) Urine pH (5.0-8.0) Ur Specific R[place] (1.003-1.030) Urine Protein (NEGATIVE) mg/dL Urine Glucose (UA) (NEGATIVE) mg/dL Urine Ketones (NEGATIVE) mg/dL Urine Occult Blood (NEGATIVE) Urine Nitrite (NEGATIVE) Urine Bilirubin (NEGATIVE) Urine Urobilinogen (0.2-1.0) E.U./dL Ur Leukocyte Esterase (NEGATIVE) SARS-CoV-2 RNA ([place]) (NEGATIVE) 08/25/20 08/26/20 08/26/20 Range/Units 20:45 08:15 08:15 WBC 4.3 D (4.0-11.0) K/uL RBC 3.97 L (4.50-6.50) M/uL Hgb 12.5 L (13.0-18.0) g/dL Hct 38.8 L (40.0-54.0) % MCV 98 H (76-96) fL MCH 31.5 (27.0-32.0) pg MCHC 32.2 (31.0-35.0) g/dL RDW 14.3 (11.0-16.0) % Plt Count 259 (150-400) K/uL MPV 10.2 H (6.0-10.0) fL Neut % (Auto) 88.3 H (45.0-70.0) % Lymph % (Auto) 10.6 L (20.0-40.0) % [place] % (Auto) 0.9 L (3.0-10.0) % Eos % (Auto) 0.0 L (1.0-5.0) % Baso % (Auto) 0.2 (0.0-0.5) % Neut # (Auto) 3.82 (2.00-7.50) K/uL Lymph # (Auto) 0.46 L (1.50-4.00) K/uL [place] # (Auto) 0.04 L (0.20-0.80) K/uL Eos # (Auto) 0.00 L (0.04-0.40) K/uL Baso # (Auto) 0.01 L (0.02-0.10) K/uL ABG pH 7.41 (7.35-7.45) ABG pCO2 40.2 (35-45) mmHg ABG pO2 56.8 L* (80-105) mmHg ABG HCO3 25.5 (22-26) mmol/L ABG O2 Saturation 89.4 L (95-98) % ABG Base Excess 0.9 (-2-2) O2 Delivery Device Nasal cannula Oxygen Flow Rate L Sodium (136-145) mmol/L Potassium (3.5-5.1) mmol/L Chloride (98-107) mmol/L Carbon Dioxide (21.0-32.0) mmol/L Anion Gap (5.0-15.0) mmol/L BUN (8-26) mg/dL Creatinine (0.70-1.30) mg/dL Est Cr Clr Drug Dosing Estimated GFR (MDRD) (>60) MLS/MIN BUN/Creatinine Ratio (6-25) Glucose (74-100) mg/dL Calcium (8.5-10.1) mg/dL Total Bilirubin (0.0-1.0) mg/dL AST (15-37) U/L ALT (12-78) U/L Alkaline Phosphatase (46-116) U/L Troponin I (0.000-0.060) ng/mL B-Natriuretic Peptide (0-450) pg/mL Total Protein (6.4-8.2) g/dL Albumin (3.4-5.0) g/dL Globulin (2.2-4.2) g/dL Albumin/Globulin Ratio (0.8-2.0) Urine Color Urine Appearance (CLEAR) Urine pH (5.0-8.0) Ur Specific [place] (1.003-1.030) Urine Protein (NEGATIVE) mg/dL Urine Glucose (UA) (NEGATIVE) mg/dL Urine Ketones (NEGATIVE) mg/dL Urine Occult Blood (NEGATIVE) Urine Nitrite (NEGATIVE) Urine Bilirubin (NEGATIVE) Urine Urobilinogen (0.2-1.0) E.U./dL Ur Leukocyte Esterase (NEGATIVE) SARS-CoV-2 RNA ([place]) Negative (NEGATIVE) 08/26/20 08/26/20 Range/Units 08:15 09:02 WBC (4.0-11.0) K/uL RBC (4.50-6.50) M/uL Hgb (13.0-18.0) g/dL Hct (40.0-54.0) % MCV (76-96) fL MCH (27.0-32.0) pg MCHC (31.0-35.0) g/dL RDW (11.0-16.0) % Plt Count (150-400) K/uL MPV (6.0-10.0) fL Neut % (Auto) (45.0-70.0) % Lymph % (Auto) (20.0-40.0) % [place] % (Auto) (3.0-10.0) % Eos % (Auto) (1.0-5.0) % Baso % (Auto) (0.0-0.5) % Neut # (Auto) (2.00-7.50) K/uL Lymph # (Auto) (1.50-4.00) K/uL [place] # (Auto) (0.20-0.80) K/uL Eos # (Auto) (0.04-0.40) K/uL Baso # (Auto) (0.02-0.10) K/uL ABG pH (7.35-7.45) ABG pCO2 (35-45) mmHg ABG pO2 (80-105) mmHg ABG HCO3 (22-26) mmol/L ABG O2 Saturation (95-98) % ABG Base Excess (-2-2) O2 Delivery Device Oxygen Flow Rate L Sodium 135 L (136-145) mmol/L Potassium 4.4 (3.5-5.1) mmol/L Chloride 102 (98-107) mmol/L Carbon Dioxide 27.3 (21.0-32.0) mmol/L Anion Gap 10.1 (5.0-15.0) mmol/L BUN 9 (8-26) mg/dL Creatinine 0.86 (0.70-1.30) mg/dL Est Cr Clr Drug Dosing 83.63 Estimated GFR (MDRD) > 60 (>60) MLS/MIN BUN/Creatinine Ratio 10.5 (6-25) Glucose 169 H D (74-100) mg/dL Calcium 8.8 (8.5-10.1) mg/dL Total Bilirubin 0.3 (0.0-1.0) mg/dL AST 17 (15-37) U/L ALT 36 (12-78) U/L Alkaline Phosphatase 84 (46-116) U/L Troponin I (0.000-0.060) ng/mL B-Natriuretic Peptide (0-450) pg/mL Total Protein 6.5 (6.4-8.2) g/dL Albumin 2.9 L (3.4-5.0) g/dL Globulin 3.6 (2.2-4.2) g/dL Albumin/Globulin Ratio 0.8 (0.8-2.0) Urine Color Yellow Urine Appearance Clear (CLEAR) Urine pH 5.5 (5.0-8.0) Ur Specific [place] 1.025 (1.003-1.030) Urine Protein Negative (NEGATIVE) mg/dL Urine Glucose (UA) Negative (NEGATIVE) mg/dL Urine Ketones 40 H (NEGATIVE) mg/dL Urine Occult Blood Negative (NEGATIVE) Urine Nitrite Negative (NEGATIVE) Urine Bilirubin Negative (NEGATIVE) Urine Urobilinogen 0.2 (0.2-1.0) E.U./dL Ur Leukocyte Esterase Negative (NEGATIVE) SARS-CoV-2 RNA ([place]) (NEGATIVE) Result Diagrams: 08/26/20 08:15 08/26/20 08:15 #1 Interpretation EKG Date: 08/26/20 (Tachycardia ) Rhythm: NSR Sepsis Event Note - Evaluation Sepsis Screening Result: No Definite Risk - Focused Exam Vital Signs: Vital Signs Temp Temp Pulse Resp BP Pulse Ox Pulse Ox 08/26/20 08:00 36.9 C 107 H 14 112/65 92 L 08/26/20 04:00 36.9 C 90 18 109/60 92 L 08/26/20 00:51 93 92 L 08/26/20 00:37 93 18 93 L 08/25/20 22:40 36.9 C 103 H 18 100/58 L 93 L *Q Meaningful Use (ADM) - VTE *Q VTE Mechanical Contraindications *Q: At Risk for Falls - VTE Risk Assess *Q Each Risk Factor Represents 3 Points: Age 75 Years or Greater Total Score 3 Point Risk Factors: 3 - AMI *Q Aspirin Contraindications AMI *Q: Further Opinion Sought Thrombolytic/Fibrinolytic Contraindications IV (AMI) *Q: Further opinion sought Statin Contraindications AMI *Q: Further Opinion Sought - Problem List (1) Pneumonia SNOMED Code(s): 879717102 ICD Code: J18.9 - PNEUMONIA, UNSPECIFIED ORGANISM Status: Acute Priority: Medium Current Visit: Yes Onset Date: ~08/25/20 Qualifiers: Pneumonia type: due to unspecified organism Laterality: bilateral Lung location: unspecified part of lung Qualified Code(s): J18.9 - Pneumonia, unspecified organism (2) Viral pneumonia, unspecified SNOMED Code(s): 57978685 ICD Code: J12.9 - VIRAL PNEUMONIA, UNSPECIFIED Status: Acute Priority: Low Current Visit: Yes Onset Date: ~08/25/20 Problem List Initiated/Reviewed/Updated: Yes Orders Last 24hrs: Active Orders 24 hr Category Date Time Status Patient Status [ADT] Routine ADT 08/25/20 20:37 Active EKG Documentation Completion [RC] ASDIRECTED Care 08/25/20 20:06 Active EKG Documentation Completion [RC] ASDIRECTED Care 08/25/20 22:33 Active Intake and Output [RC] QSHIFT Care 08/25/20 20:39 Active Oxygen Therapy Adult [Oxygen Therapy, ED] [RC] Care 08/25/20 20:42 Active ASDIRECTED Oxygen Therapy [RC] CONTINUOUS Care 08/25/20 20:37 Active Pulse Oximetry [RC] CONTINUOUS Care 08/25/20 20:39 Active RT Aerosol Therapy [RC] ASDIRECTED Care 08/25/20 20:16 Active RT Aerosol Therapy [RC] ASDIRECTED Care 08/25/20 22:33 Active RT Aerosol Therapy [RC] ASDIRECTED Care 08/26/20 00:51 Active RT Aerosol Therapy [RC] ASDIRECTED Care 08/26/20 06:07 Active RT Aerosol Therapy [RC] ASDIRECTED Care 08/26/20 08:46 Active Up With Assistance [RC] ASDIRECTED Care 08/25/20 20:37 Active Vital Signs [RC] Q4H Care 08/25/20 20:37 Active CULTURE MRSA [RM] Stat Lab 08/25/20 20:45 Received UA W/KISHOR RFLX IF INDICATED [URIN] Routine Lab 08/26/20 08:17 Ordered Albuterol [Proventil Neb Soln] Med 08/25/20 22:32 Active 2.5 mg NEB Q2H PRN Albuterol/Ipratropium [DuoNeb 3.0-0.5 MG/3 ML] Med 08/26/20 08:51 Active 3 ml NEB Q4H PRN Aspirin [Halfprin] Med 08/26/20 08:00 Active 81 mg PO DAILY Azithromycin [Zithromax] 500 mg Med 08/25/20 22:45 Active Sodium Chloride 0.9% [Normal Saline (AdvBag)] 250 ml IV Q24H Cholecalciferol (Vitamin D3) [Vitamin D3] Med 08/26/20 08:00 Active 2,000 unit PO DAILY Cyanocobalamin (Vitamin B12) [Vitamin B12] Med 08/26/20 08:00 Active 1,000 mcg PO DAILY Desvenlafaxine [Pristiq] Med 08/26/20 08:00 Active 100 mg PO DAILY Docusate Sodium [Colace] Med 08/26/20 07:03 Active 100 mg PO DAILY PRN Fluticasone Propionate [Flonase] Med 08/26/20 08:00 Active 0 gm NASBOTH DAILY Ibuprofen [Motrin] Med 08/26/20 22:00 Active 400 mg PO BEDTIME Levothyroxine Med 08/27/20 08:00 Active 37.5 mcg PO DAILY Levothyroxine [Synthroid] Med 08/27/20 08:00 Active 100 mcg PO DAILY Meclizine [Antivert] Med 08/26/20 06:53 Active 25 mg PO DAILY PRN Nystatin [Nystop] Med 08/26/20 08:00 Active 0 gm TOP BID Sulfamethoxazole/Trimethoprim [Septra DS] Med 08/26/20 08:00 Active 1 tab PO DAILY Tamsulosin [Flomax] Med 08/26/20 10:00 Active 0.4 mg PO PCBREAKFAST busPIRone [Buspar] Med 08/26/20 08:00 Active 15 mg PO BID guaiFENesin [Mucinex] Med 08/26/20 08:00 Active 600 mg PO BID methylPREDNISolone Sod Succ [Solu-MEDROL] Med 08/26/20 08:45 Active 60 mg IVPUSH Q12H traZODone Med 08/26/20 20:00 Active 100 mg PO BEDTIME Medication Orders Albuterol (Albuterol 0.083% 2.5 Mg/3 Ml Neb Soln) 2.5 mg NEB Q2H PRN PRN Reason: Wheezing Last Admin: 08/26/20 07:06 Dose: 2.5 mg Documented by: STAN Albuterol/Ipratropium (Albuterol/Ipratropium 3.0-0.5 Mg/3 Ml Neb Soln) 3 ml NEB Q4H PRN PRN Reason: Dyspnea Aspirin (Aspirin 81 Mg Tab.Ec) 81 mg PO DAILY [facility] Last Admin: 08/26/20 07:58 Dose: 81 mg Documented by: AIDE Buspirone HCl (Buspirone 15 Mg Tab) 15 mg PO BID [facility] [place] Last Admin: 08/26/20 07:58 Dose: 15 mg Documented by: AIDE Cholecalciferol (Cholecalciferol (Vitamin D3) 2,000 Unit Cap) 2,000 unit PO DAILY [facility] [place] Last Admin: 08/26/20 07:58 Dose: 2,000 unit Documented by: AIDE Cyanocobalamin (Cyanocobalamin (Vitamin B12) 1,000 Mcg Tab) 1,000 mcg PO DAILY [facility] [place] Last Admin: 08/26/20 07:58 Dose: 1,000 mcg Documented by: AIDE Desvenlafaxine Succinate (Desvenlafaxine 50 Mg Tab.Er) 100 mg PO DAILY [facility] [place] Last Admin: 08/26/20 07:58 Dose: 100 mg Documented by: AIDE Docusate Sodium (Docusate Sodium 100 Mg Cap) 100 mg PO DAILY PRN PRN Reason: Constipation Fluticasone Propionate (Fluticasone Propionate Nasal [place] 16 Gm Bottle) 0 gm NASBOTH DAILY [facility] Last Admin: 08/26/20 07:57 Dose: 1 spray Documented by: AIDE Guaifenesin (Guaifenesin 600 Mg Tab.Er) 600 mg PO BID [facility] [place] Last Admin: 08/26/20 07:58 Dose: 600 mg Documented by: AIDE Azithromycin 500 mg/ Sodium (Chloride) 250 mls @ 250 mls/hr IV Q24H [facility] [place] Last Admin: 08/25/20 22:42 Dose: 250 mls/hr Documented by: JEREMY Ibuprofen (Ibuprofen 200 Mg Tab) 400 mg PO BEDTIME [facility] Levothyroxine Sodium (Levothyroxine 100 Mcg Tab) 100 mcg PO DAILY [facility] Levothyroxine Sodium (Levothyroxine 75 Mcg Tab) 37.5 mcg PO DAILY [facility] Meclizine HCl (Meclizine 12.5 Mg Tab) 25 mg PO DAILY PRN PRN Reason: Dizziness Methylprednisolone Sodium Succinate (Methylprednisolone Sodium Succinate 40 Mg/1 Ml Sdv) 60 mg IVPUSH Q12H [place] Nystatin (Nystatin Topical Powder 15 Gm Bottle) 0 gm TOP BID [facility] [place] Last Admin: 08/26/20 07:57 Dose: 1 applic Documented by: AIDE Tamsulosin HCl (Tamsulosin 0.4 Mg Cap.Er) 0.4 mg PO PCBREAKFAST [place] Trazodone HCl (Trazodone 100 Mg Tab) 100 mg PO BEDTIME [place] Trimethoprim/Sulfamethoxazole (Sulfamethoxazole/Trimethoprim 800-160 Mg Tab) 1 tab PO DAILY [facility] Stop: 08/27/20 08:01 Assessment/Plan Comment:: Continue Abx therapy. Zithromax. Repeat CXR Continue NEB treatment PRN. Increased O2 to 6L. Ordered Solumedrol 60mg BID, IV push. Trend labs, CMP, CBC. - Mortality Measure Prognosis:: Good
[2020-08-26] MEDS ORDERED: Tamsulosin 0.4 MG Cap.ER PO SCH (10:00)
[2020-08-26] MEDS: Albuterol/Ipratropium 3.0-0.5 MG/3 ML Neb Soln NEB PRN ×2 (11:19→16:09)
[2020-08-26] MEDS ORDERED: Lactobacillus Acidophilus/Lactobacillus Sporogenes (Probiotic) Tab PO SCH (13:15)
[2020-08-26] MEDS ORDERED: Iodixanol 652 MG/ML 100 ML Bottle IV PRN (14:43)
[2020-08-26] MEDS ORDERED: Sodium Chloride 0.9% 50 ML SDV FLUSH SCH (14:45)
--- NOTE | 2020-08-26 15:27 | CT ---
DATE OF SERVICE: 08/26/2020 CLINICAL DATA: Shortness of breath Enhanced chest CT: Multi slice acquisition through the chest with IV contrast was performed. No priors. There are soft tissue filling defects noted within the segmental and subsegmental pulmonary arteries within the left upper lobe, left lower lobe , and right lower lobe consistent with PE. No pneumothorax. No pleural effusions. No aortic aneurysm or dissection. There is eventration of the right hemidiaphragm and there are atelectatic changes within the right lower lobe with areas of consolidation. There is also atelectasis with consolidation in the lingular segment of the left upper lobe and within the left lung base. Pneumonia is suspected. There are also ground- glass opacities in both lungs. Consider viral pneumonia. Heart size is normal. There are moderate coronary artery calcifications. The the no significant pericardial effusion. There are nonspecific lymph nodes noted within the mediastinum and sam. There are enlarged lymph nodes in the right hilum. There is a small hiatal hernia. There is gas noted within the distal esophagus most likely related to GE reflux. There is degenerative disc disease throughout the thoracic spine. Impression: Abnormal exam. Positive exam for PE. Areas of consolidation in both lungs suspicious for pneumonia. Ground-glass opacities in both lungs. Viral pneumonia should be considered. The patient's physician was notified of the findings by telephone. SABRINA
[2020-08-26] MEDS ORDERED: Enoxaparin 150 MG/1 ML Syringe SUBCUT ONE (16:01)
[2020-08-26] MEDS ORDERED: Furosemide 40 MG/4 ML VIAL IVPUSH ONE (16:26)
--- NOTE | 2020-08-26 17:00 | PCM.DCSUM1 ---
Discharge Summary - Hospital Course Free Text/Narrative:: Patient was treat for a Viral pneumonia with risk of secondary bacterial process. Clinical presentation post admission lead to suspicion of PE due to vitals and increasing SOB and chest tightness. CT scan confirmed Dx and patient was transferred to higher level of care with IR and pulmonology service. Accepting facility was [place], [place]. Flight transfer was arranged by accepting hospital. HPI Initial Comments: 79 YOM admitted from the ED last night. He is a NH patient with a chronic HX of SOB from COPD and CHF. PMH includes HTN. Today he has concerns of worsening SOB due to admission Dx of Viral pneumonia. Lungs are CTA. Normal HRR. Abd is soft and non tender. No fever. No productive cough. No pedal edema. Diagnosis: Stroke: No - Discharge Data Discharge Date: 08/26/20 Discharge Disposition: DC/Tfer to Acute Hospital 02 Condition: Stable - Referral to Home Health Primary Care Physician: PCP None - Discharge Diagnosis/Problem(s) (1) Pneumonia SNOMED Code(s): 438705055 ICD Code: J18.9 - PNEUMONIA, UNSPECIFIED ORGANISM Status: Acute Priority: Medium Current Visit: Yes Onset Date: ~08/25/20 Qualifiers: Pneumonia type: due to unspecified organism Laterality: bilateral Lung location: unspecified part of lung Qualified Code(s): J18.9 - Pneumonia, unspecified organism (2) Viral pneumonia, unspecified SNOMED Code(s): 28427307 ICD Code: J12.9 - VIRAL PNEUMONIA, UNSPECIFIED Status: Acute Priority: Low Current Visit: Yes Onset Date: ~08/25/20 (3) Pulmonary embolism SNOMED Code(s): 61962308 ICD Code: I26.99 - OTHER PULMONARY EMBOLISM WITHOUT ACUTE COR PULMONALE Status: Acute Priority: High Current Visit: Yes Onset Date: ~08/25/20 Problem Details: Bilateral Qualifiers: Chronicity: acute Acute cor pulmonale presence: unspecified - Patient Instructions Diet: Heart Healthy Diet, Fluid Restriction - Discharge Plan *PRESCRIPTION DRUG MONITORING PROGRAM REVIEWED*: Not Applicable *COPY OF PRESCRIPTION DRUG MONITORING REPORT IN PATIENT ARTEM: Not Applicable Home Medications: Home Meds Desvenlafaxine [Pristiq] 100 mg PO DAILY 06/01/16 [History] Tamsulosin HCl [Flomax] 0.4 mg PO DAILY 06/01/16 [History] Aspirin [Halfprin] 81 mg PO DAILY 06/21/17 [History] Budesonide/Formoterol Fumarate [Symbicort 160-4.5 Mcg Inhaler] 2 puff IH BID 10/03/17 [History] Albuterol/Ipratropium [DuoNeb 3.0-0.5 MG/3 ML] 3 ml INH Q4H PRN #60 neb 02/22/18 [Rx] Albuterol Sulfate [Proair Hfa] 2 puff IH Q4H PRN 07/04/20 [History] Fluticasone Propionate [Flonase] 1 spray NASBOTH DAILY 07/04/20 [History] Ibuprofen/Diphenhydramine Cit [Advil Pm Caplet] 2 tab PO BEDTIME 07/04/20 [History] Mag Hydrox/Aluminum Hyd/Simeth [Alum-Mag Hydroxide-Simeth Susp] 30 ml PO Q4H PRN 07/04/20 [History] Meclizine HCl 25 mg PO DAILY PRN 07/04/20 [History] busPIRone HCl [Buspirone HCl] 15 mg PO BID 07/04/20 [History] guaiFENesin [Mucinex] 600 mg PO BID 07/04/20 [History] traZODone HCl [Trazodone HCl] 150 mg PO BEDTIME 07/04/20 [History] Nystatin [Nystop] 0 gm TOP BID #1 bottle 07/06/20 [Rx] Cholecalciferol (Vitamin D3) [Vitamin D3] 2,000 unit PO DAILY 08/26/20 [History] Cyanocobalamin (Vitamin B-12) [B-12] 1,000 mcg PO DAILY 08/26/20 [History] Docusate Sodium [Colace] 100 mg PO BEDTIME PRN 08/26/20 [History] Levothyroxine 137 mcg PO ACBREAKFAST 08/26/20 [History] Menthol [[place]] 7 mg MM Q2HR PRN 08/26/20 [History] Non-Formulary Medication [NF Drug] 30 ml PO Q6HR PRN 08/26/20 [History] Sulfamethoxazole/Trimethoprim [Bactrim Ds Tablet] 1 tab PO DAILY 08/26/20 [History] Tiotropium [place] [Spiriva Respimat] 2.5 mcg INH DAILY 08/26/20 [History] Oxygen Therapy Mode: Nasal Cannula Oxygen Flow Rate (L/min): 6 Forms: ED Department Discharge Referrals: PCP,None [Primary Care Provider] - - Discharge Summary/Plan Comment DC Time >30 min.: Yes (Waiting on air ambulance) Discharge Summary/Plan Comment: Transfer to acute [facility] hospital. - General Info Date of Service: 08/26/20 Admission Dx/Problem (Free Text: Admission Diagnosis/Problem Admission Diagnosis/Problem Pneumonia Functional Status: Reports: Pain Controlled, Other (Limited food intake) - Review of Systems General: Reports: Malaise HEENT: Reports: No Symptoms Pulmonary: Reports: Shortness of Breath, Cough Cardiovascular: Reports: No Symptoms Gastrointestinal: Reports: No Symptoms Genitourinary: Reports: No Symptoms Musculoskeletal: Reports: No Symptoms Skin: Reports: No Symptoms Neurological: Reports: No Symptoms Psychiatric: Reports: No Symptoms - Patient Data Vitals - Most Recent: Last Vital Signs Temp 37.0 C 08/26/20 15:43 Pulse 103 H 08/26/20 15:43 Resp 18 08/26/20 15:43 BP 138/74 08/26/20 15:43 Pulse Ox 93 L 08/26/20 15:43 Weight - Most Recent: 104.372 kg Lab Results - Last 24 hrs: Laboratory Results - last 24 hr 08/25/20 08/25/20 08/25/20 Range/Units 20:30 20:30 20:40 WBC 7.0 (4.0-11.0) K/uL RBC 4.10 L (4.50-6.50) M/uL Hgb 13.2 (13.0-18.0) g/dL Hct 40.1 (40.0-54.0) % MCV 98 H (76-96) fL MCH 32.2 H (27.0-32.0) pg MCHC 32.9 (31.0-35.0) g/dL RDW 14.5 (11.0-16.0) % Plt Count 270 D (150-400) K/uL MPV 10.5 H (6.0-10.0) fL Neut % (Auto) 66.3 (45.0-70.0) % Lymph % (Auto) 18.8 L (20.0-40.0) % [place] % (Auto) 11.6 H (3.0-10.0) % Eos % (Auto) 2.9 (1.0-5.0) % Baso % (Auto) 0.4 (0.0-0.5) % Neut # (Auto) 4.63 (2.00-7.50) K/uL Lymph # (Auto) 1.31 L (1.50-4.00) K/uL [place] # (Auto) 0.81 H (0.20-0.80) K/uL Eos # (Auto) 0.20 (0.04-0.40) K/uL Baso # (Auto) 0.03 (0.02-0.10) K/uL PT (9.0-11.5) sec INR (1.0-3.5) D-Dimer, Quantitative (0-400) ng/mL ABG pH 7.40 (7.35-7.45) ABG pCO2 42.5 (35-45) mmHg ABG pO2 56.2 L* (80-105) mmHg ABG HCO3 26.0 (22-26) mmol/L ABG O2 Saturation 88.6 L (95-98) % ABG Base Excess 1.1 (-2-2) O2 Delivery Device Nasal cannula Oxygen Flow Rate 4 L Sodium 143 (136-145) mmol/L Potassium 4.5 (3.5-5.1) mmol/L Chloride 105 (98-107) mmol/L Carbon Dioxide 29.0 (21.0-32.0) mmol/L Anion Gap 13.5 (5.0-15.0) mmol/L BUN 10 D (8-26) mg/dL Creatinine 0.94 (0.70-1.30) mg/dL Est Cr Clr Drug Dosing TNP Estimated GFR (MDRD) > 60 (>60) MLS/MIN BUN/Creatinine Ratio 10.6 (6-25) Glucose 109 H (74-100) mg/dL Calcium 9.1 (8.5-10.1) mg/dL Total Bilirubin (0.0-1.0) mg/dL AST (15-37) U/L ALT (12-78) U/L Alkaline Phosphatase (46-116) U/L Troponin I < 0.017 (0.000-0.060) ng/mL B-Natriuretic Peptide 63 D (0-450) pg/mL Total Protein (6.4-8.2) g/dL Albumin (3.4-5.0) g/dL Globulin (2.2-4.2) g/dL Albumin/Globulin Ratio (0.8-2.0) Urine Color Urine Appearance (CLEAR) Urine pH (5.0-8.0) Ur Specific [place] (1.003-1.030) Urine Protein (NEGATIVE) mg/dL Urine Glucose (UA) (NEGATIVE) mg/dL Urine Ketones (NEGATIVE) mg/dL Urine Occult Blood (NEGATIVE) Urine Nitrite (NEGATIVE) Urine Bilirubin (NEGATIVE) Urine Urobilinogen (0.2-1.0) E.U./dL Ur Leukocyte Esterase (NEGATIVE) SARS-CoV-2 RNA ([place]) (NEGATIVE) 08/25/20 08/26/20 08/26/20 Range/Units 20:45 08:15 08:15 WBC 4.3 D (4.0-11.0) K/uL RBC 3.97 L (4.50-6.50) M/uL Hgb 12.5 L (13.0-18.0) g/dL Hct 38.8 L (40.0-54.0) % MCV 98 H (76-96) fL MCH 31.5 (27.0-32.0) pg MCHC 32.2 (31.0-35.0) g/dL RDW 14.3 (11.0-16.0) % Plt Count 259 (150-400) K/uL MPV 10.2 H (6.0-10.0) fL Neut % (Auto) 88.3 H (45.0-70.0) % Lymph % (Auto) 10.6 L (20.0-40.0) % Snyder % (Auto) 0.9 L (3.0-10.0) % Eos % (Auto) 0.0 L (1.0-5.0) % Baso % (Auto) 0.2 (0.0-0.5) % Neut # (Auto) 3.82 (2.00-7.50) K/uL Lymph # (Auto) 0.46 L (1.50-4.00) K/uL Snyder # (Auto) 0.04 L (0.20-0.80) K/uL Eos # (Auto) 0.00 L (0.04-0.40) K/uL Baso # (Auto) 0.01 L (0.02-0.10) K/uL PT (9.0-11.5) sec INR (1.0-3.5) D-Dimer, Quantitative (0-400) ng/mL ABG pH 7.41 (7.35-7.45) ABG pCO2 40.2 (35-45) mmHg ABG pO2 56.8 L* (80-105) mmHg ABG HCO3 25.5 (22-26) mmol/L ABG O2 Saturation 89.4 L (95-98) % ABG Base Excess 0.9 (-2-2) O2 Delivery Device Nasal cannula Oxygen Flow Rate L Sodium (136-145) mmol/L Potassium (3.5-5.1) mmol/L Chloride (98-107) mmol/L Carbon Dioxide (21.0-32.0) mmol/L Anion Gap (5.0-15.0) mmol/L BUN (8-26) mg/dL Creatinine (0.70-1.30) mg/dL Est Cr Clr Drug Dosing Estimated GFR (MDRD) (>60) MLS/MIN BUN/Creatinine Ratio (6-25) Glucose (74-100) mg/dL Calcium (8.5-10.1) mg/dL Total Bilirubin (0.0-1.0) mg/dL AST (15-37) U/L ALT (12-78) U/L Alkaline Phosphatase (46-116) U/L Troponin I (0.000-0.060) ng/mL B-Natriuretic Peptide (0-450) pg/mL Total Protein (6.4-8.2) g/dL Albumin (3.4-5.0) g/dL Globulin (2.2-4.2) g/dL Albumin/Globulin Ratio (0.8-2.0) Urine Color Urine Appearance (CLEAR) Urine pH (5.0-8.0) Ur Specific [place] (1.003-1.030) Urine Protein (NEGATIVE) mg/dL Urine Glucose (UA) (NEGATIVE) mg/dL Urine Ketones (NEGATIVE) mg/dL Urine Occult Blood (NEGATIVE) Urine Nitrite (NEGATIVE) Urine Bilirubin (NEGATIVE) Urine Urobilinogen (0.2-1.0) E.U./dL Ur Leukocyte Esterase (NEGATIVE) SARS-CoV-2 RNA ([place]) Negative (NEGATIVE) 08/26/20 08/26/20 08/26/20 Range/Units 08:15 09:02 16:03 WBC (4.0-11.0) K/uL RBC (4.50-6.50) M/uL Hgb (13.0-18.0) g/dL Hct (40.0-54.0) % MCV (76-96) fL MCH (27.0-32.0) pg MCHC (31.0-35.0) g/dL RDW (11.0-16.0) % Plt Count (150-400) K/uL MPV (6.0-10.0) fL Neut % (Auto) (45.0-70.0) % Lymph % (Auto) (20.0-40.0) % [place] % (Auto) (3.0-10.0) % Eos % (Auto) (1.0-5.0) % Baso % (Auto) (0.0-0.5) % Neut # (Auto) (2.00-7.50) K/uL Lymph # (Auto) (1.50-4.00) K/uL [place] # (Auto) (0.20-0.80) K/uL Eos # (Auto) (0.04-0.40) K/uL Baso # (Auto) (0.02-0.10) K/uL PT 10.7 (9.0-11.5) sec INR 1.0 (1.0-3.5) D-Dimer, Quantitative (0-400) ng/mL ABG pH (7.35-7.45) ABG pCO2 (35-45) mmHg ABG pO2 (80-105) mmHg ABG HCO3 (22-26) mmol/L ABG O2 Saturation (95-98) % ABG Base Excess (-2-2) O2 Delivery Device Oxygen Flow Rate L Sodium 135 L (136-145) mmol/L Potassium 4.4 (3.5-5.1) mmol/L Chloride 102 (98-107) mmol/L Carbon Dioxide 27.3 (21.0-32.0) mmol/L Anion Gap 10.1 (5.0-15.0) mmol/L BUN 9 (8-26) mg/dL Creatinine 0.86 (0.70-1.30) mg/dL Est Cr Clr Drug Dosing 83.63 Estimated GFR (MDRD) > 60 (>60) MLS/MIN BUN/Creatinine Ratio 10.5 (6-25) Glucose 169 H D (74-100) mg/dL Calcium 8.8 (8.5-10.1) mg/dL Total Bilirubin 0.3 (0.0-1.0) mg/dL AST 17 (15-37) U/L ALT 36 (12-78) U/L Alkaline Phosphatase 84 (46-116) U/L Troponin I (0.000-0.060) ng/mL B-Natriuretic Peptide (0-450) pg/mL Total Protein 6.5 (6.4-8.2) g/dL Albumin 2.9 L (3.4-5.0) g/dL Globulin 3.6 (2.2-4.2) g/dL Albumin/Globulin Ratio 0.8 (0.8-2.0) Urine Color Yellow Urine Appearance Clear (CLEAR) Urine pH 5.5 (5.0-8.0) Ur Specific [place] 1.025 (1.003-1.030) Urine Protein Negative (NEGATIVE) mg/dL Urine Glucose (UA) Negative (NEGATIVE) mg/dL Urine Ketones 40 H (NEGATIVE) mg/dL Urine Occult Blood Negative (NEGATIVE) Urine Nitrite Negative (NEGATIVE) Urine Bilirubin Negative (NEGATIVE) Urine Urobilinogen 0.2 (0.2-1.0) E.U./dL Ur Leukocyte Esterase Negative (NEGATIVE) SARS-CoV-2 RNA ([place]) (NEGATIVE) 08/26/20 Range/Units 16:03 WBC (4.0-11.0) K/uL RBC (4.50-6.50) M/uL Hgb (13.0-18.0) g/dL Hct (40.0-54.0) % MCV (76-96) fL MCH (27.0-32.0) pg MCHC (31.0-35.0) g/dL RDW (11.0-16.0) % Plt Count (150-400) K/uL MPV (6.0-10.0) fL Neut % (Auto) (45.0-70.0) % Lymph % (Auto) (20.0-40.0) % [place] % (Auto) (3.0-10.0) % Eos % (Auto) (1.0-5.0) % Baso % (Auto) (0.0-0.5) % Neut # (Auto) (2.00-7.50) K/uL Lymph # (Auto) (1.50-4.00) K/uL [place] # (Auto) (0.20-0.80) K/uL Eos # (Auto) (0.04-0.40) K/uL Baso # (Auto) (0.02-0.10) K/uL PT (9.0-11.5) sec INR (1.0-3.5) D-Dimer, Quantitative 2850 H (0-400) ng/mL ABG pH (7.35-7.45) ABG pCO2 (35-45) mmHg ABG pO2 (80-105) mmHg ABG HCO3 (22-26) mmol/L ABG O2 Saturation (95-98) % ABG Base Excess (-2-2) O2 Delivery Device Oxygen Flow Rate L Sodium (136-145) mmol/L Potassium (3.5-5.1) mmol/L Chloride (98-107) mmol/L Carbon Dioxide (21.0-32.0) mmol/L Anion Gap (5.0-15.0) mmol/L BUN (8-26) mg/dL Creatinine (0.70-1.30) mg/dL Est Cr Clr Drug Dosing Estimated GFR (MDRD) (>60) MLS/MIN BUN/Creatinine Ratio (6-25) Glucose (74-100) mg/dL Calcium (8.5-10.1) mg/dL Total Bilirubin (0.0-1.0) mg/dL AST (15-37) U/L ALT (12-78) U/L Alkaline Phosphatase (46-116) U/L Troponin I (0.000-0.060) ng/mL B-Natriuretic Peptide (0-450) pg/mL Total Protein (6.4-8.2) g/dL Albumin (3.4-5.0) g/dL Globulin (2.2-4.2) g/dL Albumin/Globulin Ratio (0.8-2.0) Urine Color Urine Appearance (CLEAR) Urine pH (5.0-8.0) Ur Specific [place] (1.003-1.030) Urine Protein (NEGATIVE) mg/dL Urine Glucose (UA) (NEGATIVE) mg/dL Urine Ketones (NEGATIVE) mg/dL Urine Occult Blood (NEGATIVE) Urine Nitrite (NEGATIVE) Urine Bilirubin (NEGATIVE) Urine Urobilinogen (0.2-1.0) E.U./dL Ur Leukocyte Esterase (NEGATIVE) SARS-CoV-2 RNA ([place]) (NEGATIVE) Med Orders - Current: Current Medications Albuterol (Albuterol 0.083% 2.5 Mg/3 Ml Neb Soln) 2.5 mg NEB Q2H PRN PRN Reason: Wheezing Last Admin: 08/26/20 13:30 Dose: 2.5 mg Documented by: Albuterol/Ipratropium (Albuterol/Ipratropium 3.0-0.5 Mg/3 Ml Neb Soln) 3 ml NEB Q4H PRN PRN Reason: Dyspnea Last Admin: 08/26/20 16:09 Dose: 3 ml Documented by: Aspirin (Aspirin 81 Mg Tab.Ec) 81 mg PO DAILY [facility] Last Admin: 08/26/20 07:58 Dose: 81 mg Documented by: Buspirone HCl (Buspirone 15 Mg Tab) 15 mg PO BID [facility] Last Admin: 08/26/20 07:58 Dose: 15 mg Documented by: Cholecalciferol (Cholecalciferol (Vitamin D3) 2,000 Unit Cap) 2,000 unit PO DAILY [facility] Last Admin: 08/26/20 07:58 Dose: 2,000 unit Documented by: Cyanocobalamin (Cyanocobalamin (Vitamin B12) 1,000 Mcg Tab) 1,000 mcg PO DAILY [facility] Last Admin: 08/26/20 07:58 Dose: 1,000 mcg Documented by: Desvenlafaxine Succinate (Desvenlafaxine 50 Mg Tab.Er) 100 mg PO DAILY [facility] Last Admin: 08/26/20 07:58 Dose: 100 mg Documented by: Docusate Sodium (Docusate Sodium 100 Mg Cap) 100 mg PO DAILY PRN PRN Reason: Constipation Fluticasone Propionate (Fluticasone Propionate Nasal [place] 16 Gm Bottle) 0 gm NASBOTH DAILY [facility] Last Admin: 08/26/20 07:57 Dose: 1 spray Documented by: Guaifenesin (Guaifenesin 600 Mg Tab.Er) 600 mg PO BID [facility] Last Admin: 08/26/20 07:58 Dose: 600 mg Documented by: Azithromycin 500 mg/ Sodium (Chloride) 250 mls @ 250 mls/hr IV Q24H [facility] Last Admin: 08/25/20 22:42 Dose: 250 mls/hr Documented by: Ibuprofen (Ibuprofen 200 Mg Tab) 400 mg PO BEDTIME [place] Iodixanol (Iodixanol 652 Mg/Ml 100 Ml Bottle) 100 ml IV . DIRECTED PRN PRN Reason: RADIOLOGY EXAM Stop: 08/27/20 14:44 Last Admin: 08/26/20 14:20 Dose: 100 ml Documented by: Lactobacillus Acidophilus (Lactobacillus Acidophilus/Lactobacillus Sporogenes (Probiotic) Tab) 2 tab PO DAILY [facility] Last Admin: 08/26/20 16:10 Dose: 2 tab Documented by: Levothyroxine Sodium (Levothyroxine 100 Mcg Tab) 100 mcg PO DAILY [facility] Levothyroxine Sodium (Levothyroxine 75 Mcg Tab) 37.5 mcg PO DAILY [place] Meclizine HCl (Meclizine 12.5 Mg Tab) 25 mg PO DAILY PRN PRN Reason: Dizziness Methylprednisolone Sodium Succinate (Methylprednisolone Sodium Succinate 40 Mg/1 Ml Sdv) 60 mg IVPUSH Q12H [facility] Last Admin: 08/26/20 10:00 Dose: 60 mg Documented by: Nystatin (Nystatin Topical Powder 15 Gm Bottle) 0 gm TOP BID [facility] Last Admin: 08/26/20 09:57 Dose: 1 applic Documented by: Sodium Chloride (Sodium Chloride 0.9% 50 Ml Sdv) 50 ml FLUSH ONETIME [facility] Last Admin: 08/26/20 14:20 Dose: 60 ml Documented by: Tamsulosin HCl (Tamsulosin 0.4 Mg Cap.Er) 0.4 mg PO PCBREAKFAST [facility] Last Admin: 08/26/20 10:00 Dose: 0.4 mg Documented by: Tiotropium [place] (Tiotropium Inhaler 18 Mcg Inhalation Powder Cap Kit Of 5) 18 mcg INH BEDTIME [place] Trazodone HCl (Trazodone 100 Mg Tab) 100 mg PO BEDTIME [facility] Trimethoprim/Sulfamethoxazole (Sulfamethoxazole/Trimethoprim 800-160 Mg Tab) 1 tab PO DAILY [facility] Stop: 08/27/20 08:01 Last Admin: 08/26/20 10:00 Dose: 1 tab Documented by: Discontinued Medications Albuterol (Albuterol 0.083% 2.5 Mg/3 Ml Neb Soln) 2.5 mg NEB ONETIME ONE Stop: 08/25/20 20:17 Last Admin: 08/25/20 20:16 Dose: 2.5 mg Documented by: Albuterol (Albuterol 0.083% 2.5 Mg/3 Ml Neb Soln) Confirm Administered Dose 2.5 mg .ROUTE .STK-MED ONE Stop: 08/25/20 21:11 Last Admin: 08/25/20 21:47 Dose: Not Given Documented by: Albuterol/Ipratropium (Albuterol/Ipratropium 3.0-0.5 Mg/3 Ml Neb Soln) Confirm Administered Dose 3 ml .ROUTE .STK-MED ONE Stop: 08/25/20 21:10 Last Admin: 08/25/20 21:48 Dose: Not Given Documented by: Albuterol/Ipratropium (Albuterol/Ipratropium 3.0-0.5 Mg/3 Ml Neb Soln) 3 ml NEB Q4H PRN PRN Reason: Shortness of Breath Albuterol/Ipratropium (Albuterol/Ipratropium 3.0-0.5 Mg/3 Ml Neb Soln) 3 ml NEB Q6H [facility] Last Admin: 08/26/20 02:15 Dose: 3 ml Documented by: Albuterol/Ipratropium (Albuterol/Ipratropium 3.0-0.5 Mg/3 Ml Neb Soln) 3 ml NEB Q4H [place] Last Admin: 08/26/20 06:00 Dose: 3 ml Documented by: Albuterol/Ipratropium (Albuterol/Ipratropium 3.0-0.5 Mg/3 Ml Neb Soln) 3 ml NEB Q6H PRN PRN Reason: Dyspnea Ceftriaxone Sodium (Ceftriaxone 1 Gm Vial) Confirm Administered Dose 1 gm .ROUTE .STK-MED ONE Stop: 08/25/20 21:45 Last Admin: 08/25/20 21:46 Dose: Not Given Documented by: Enoxaparin Sodium (Enoxaparin 150 Mg/1 Ml Syringe) 150 mg SUBCUT ONETIME ONE Stop: 08/26/20 16:02 Last Admin: 08/26/20 16:05 Dose: 150 mg Documented by: Furosemide (Furosemide 40 Mg/4 Ml Vial) 40 mg IVPUSH NOW ONE Stop: 08/26/20 16:27 Last Admin: 08/26/20 16:49 Dose: 40 mg Documented by: Ceftriaxone Sodium 1 gm/ (Sodium Chloride) 50 mls @ 100 mls/hr IV ONETIME ONE Stop: 08/25/20 21:04 Last Admin: 08/25/20 21:40 Dose: 100 mls/hr Documented by: Azithromycin 500 mg/ Sodium (Chloride) 250 mls @ 250 mls/hr IV ONETIME ONE Stop: 08/25/20 22:04 Last Admin: 08/25/20 22:44 Dose: Not Given Documented by: Ceftriaxone Sodium 1 gm/ (Sodium Chloride) 50 mls @ 100 mls/hr IV ONETIME ONE Stop: 08/25/20 23:01 Last Admin: 08/26/20 02:30 Dose: Not Given Documented by: Methylprednisolone Sodium Succinate (Methylprednisolone Sodium Succinate 125 Mg/2 Ml Sdv) 125 mg IVPUSH ONETIME ONE Stop: 08/25/20 20:28 Last Admin: 08/25/20 21:09 Dose: 125 mg Documented by: Methylprednisolone Sodium Succinate (Methylprednisolone Sodium Succinate 125 Mg/2 Ml Sdv) Confirm Administered Dose 125 mg .ROUTE .STK-MED ONE Stop: 08/25/20 21:10 Last Admin: 08/25/20 21:45 Dose: Not Given Documented by: Sodium Chloride (Sodium Chloride 0.65% Nasal [place] 45 Ml Bottle) 1 ml [place] ONETIME ONE Stop: 08/25/20 20:09 Last Admin: 08/25/20 20:08 Dose: Not Given Documented by: - Exam General: Reports: Alert, Oriented HEENT: Reports: Pupils Equal, Pupils Reactive Neck: Reports: Supple, Trachea Midline Lungs: Reports: Clear to Auscultation, Other (increasing RRR) Cardiovascular: Reports: Tachycardia GI/Abdominal Exam: Normal Bowel Sounds, Soft, Non-Tender (Male) Exam: Deferred Rectal (Males) Exam: Deferred Extremities: Normal Inspection, Non-Tender Skin: Reports: Warm, Dry, Intact Neurological: Reports: No New Focal Deficit Psy/Mental Status: Reports: Alert, Normal Affect, Normal Mood #1 Interpretation EKG Date: 08/26/20 Rhythm: NSR (Tachycardia) *Q Meaningful Use (DIS) - VTE *Q VTE Mechanical Contraindications *Q: At Risk for Falls VTE Pharmacological Contraindications *Q: High INR Value - AMI *Q Aspirin Contraindications AMI *Q: Further Opinion Sought Statin Contraindications AMI *Q: Further Opinion Sought
[2020-08-26 19:52] VITALS: BP 136/84; PULSE 102
[2020-08-26] MEDS ORDERED: Tiotropium Inhaler 18 MCG Inhalation Powder Cap Kit of 5 INH SCH (20:00)
[2020-08-26] MEDS ORDERED: traZODone 100 MG Tab PO SCH (20:00)
[2020-08-26] MEDS ORDERED: Ibuprofen 200 MG Tab PO SCH (22:00)
[2020-08-27] MEDS ORDERED: Levothyroxine 75 MCG Tab PO SCH (08:00)
[2020-08-27] MEDS ORDERED: Levothyroxine 100 MCG Tab PO SCH (08:00)
== END 2020-08-26 20:20 | DRG 175 ==
LOC: LB.ED 19:35 → LB.MS 20:37 → UNDOADMIN 21:51 → LB.MS 21:51
PROVIDERS: ADMIT Nurse Practitioner; ATTEND Nurse Practitioner
DX: I26.99 Other pulmonary embolism without acute cor pulmonale (principal); J12.9 Viral pneumonia, unspecified; J44.0 Chronic obstructive pulmonary disease with (acute) lower respiratory infection; J18.9 Pneumonia, unspecified organism; J44.1 Chronic obstructive pulmonary disease with (acute) exacerbation; H54.7 Unspecified visual loss; E78.00 Pure hypercholesterolemia, unspecified; I10 Essential (primary) hypertension; N40.0 Benign prostatic hyperplasia without lower urinary tract symptoms; F32.9 Major depressive disorder, single episode, unspecified; F41.9 Anxiety disorder, unspecified; E03.9 Hypothyroidism, unspecified; Z79.82 Long term (current) use of aspirin; Z79.890 Hormone replacement therapy; Z99.81 Dependence on supplemental oxygen; Z90.49 Acquired absence of other specified parts of digestive tract; Z79.899 Other long term (current) drug therapy; Z20.822 Contact with and (suspected) exposure to COVID-19
CPT/HCPCS: 36415; 36600; 71045; 71260; 80048; 80053; 81003; 82803; 83880; 84484; 85025; 85379; 85610; 87070; 93005; 94640; 96374; 96375; 99285-25; A0425; A0429; A9270-GY; J0456; J0696; J1650; J1940; J2920; J2930; J7050; J7620-GY; U0002